=== PATIENT | female | born 1960 | race Caucasian/White ===

== ENCOUNTER 2019-12-14 08:06 | Outpatient (REF) | payer OTHER, SELFPAY ==
--- NOTE | 2019-12-14 08:40 | XR_ITS ---
EXAMINATION: XR BILATERAL HIPS WITH AP PELVIS CLINICAL INFORMATION: Pain in the hips COMPARISON: 11/08/2015 TECHNIQUE: AP and frog-leg lateral views of each hip and an AP view of the pelvis. FINDINGS: No fracture or dislocation. The femoral heads are well-seated within their acetabula. There is moderate joint space narrowing of the left hip with subchondral sclerosis and osteophyte formation. Mild subchondral sclerosis at the right hip. The sacroiliac joints are symmetric. The pubic symphysis is well aligned. Degenerative changes noted at the lower lumbar spine. The bowel gas pattern is unremarkable. IMPRESSION: Moderate degenerative changes of the left hip. This has progressed from prior. Mild degenerative changes of the right hip.
[2019-12-14 11:08] LABS: Alanine Aminotransferase 31 U/L (0-31); Alkaline Phosphatase 56 U/L (39-117); Anion Gap 13 (12-20); Aspartate Amino Transferase 21 U/L (5-31); Bilirubin Total 0.4 mg/dL (0.0-1.0); Blood Urea Nitrogen 17 mg/dL (9-16); Calcium 9.5 mg/dL (8.4-10.2); Carbon Dioxide 31 mmol/L (22-29); Chloride 101 mmol/L (96-108); Cholesterol 201 mg/dL; Estimated Glomerular Filt Rate > 60; Glucose Fasting 118 mg/dL (60-99); HDL Cholesterol 36 mg/dL; LDL Cholesterol Calculated 118 mg/dl; Potassium 4.8 mmol/l (3.3-5.1); Sodium 140 mmol/L (135-145); Triglycerides 239 mg/dL
[2019-12-14 11:31] LABS: Vitamin D 25-OH Total 48.5 ng/mL (>30)
[2019-12-14 11:33] LABS: Creatinine Urine 110.52 mg/dL; Microalbum/Creatinine Ratio Ur 11.7 ug/mg cr
== END 2019-12-14 08:07 | disposition home or self-care (01) ==
LOC: HO.LAB 08:06
PROVIDERS: PCP Internal Medicine; Visit Provider Internal Medicine
DX: Z00.01 Encounter for general adult medical examination with abnormal findings (principal); M25.552 Pain in left hip; M25.551 Pain in right hip; E11.40 Type 2 diabetes mellitus with diabetic neuropathy, unspecified; E78.5 Hyperlipidemia, unspecified; E11.9 Type 2 diabetes mellitus without complications
CPT/HCPCS: 73521; 80053; 80061; 82043; 82306

== ENCOUNTER 2019-12-21 09:39 | Outpatient (REF) | payer OTHER, SELFPAY ==
--- NOTE | 2019-12-21 09:44 | MM_ITS ---
EXAMINATION: MM SCREENING DIGITAL BREAST TOMOSYNTHESIS, BILATERAL CLINICAL INFORMATION: Screening. Asymptomatic. The lifetime risk of breast cancer based on the Tyrer-Cuzick Model is 6.8%. COMPARISON: Mammography: July 28, 2017 and studies dating back to May 22, 2011 TECHNIQUE: Digital breast tomosynthesis is performed in both the craniocaudal and mediolateral oblique views along with computer-aided detection (CAD). Synthesized 2D images are generated from the tomosynthesis. FINDINGS: There are scattered areas of fibroglandular density (ACR BI-RADS breast composition Category b). There are no significant masses, abnormal calcifications, or other abnormalities. Stable intramammary lymph node seen anterior aspect of the right breast. MM/MM tomosynthesis screening BI IMPRESSION: There are no significant changes from prior study. ASSESSMENT: BI-RADS 1: Negative RECOMMENDATION: Routine annual mammography screening. This patient's information was entered into a reminder system with a target due date for their next mammogram.
== END 2019-12-21 09:40 | disposition home or self-care (01) ==
LOC: HO.MAMMO 09:39
PROVIDERS: PCP Internal Medicine; Visit Provider Internal Medicine
DX: Z12.31 Encounter for screening mammogram for malignant neoplasm of breast (principal)
CPT/HCPCS: 77063; 77067

== ENCOUNTER 2020-01-06 10:48 | Outpatient (REF) | payer OTHER, SELFPAY ==
[2020-01-07 11:21] LABS: BV Int Neg Control Negative (Negative); BV Int Pos Control Positive (Positive)
== END 2020-01-06 10:49 | disposition home or self-care (01) ==
LOC: HO.LAB 10:48
PROVIDERS: PCP Internal Medicine; Visit Provider Advanced Practice Midwife
DX: Z01.419 Encounter for gynecological examination (general) (routine) without abnormal findings (principal); R10.9 Unspecified abdominal pain; R30.0 Dysuria; N94.10 Unspecified dyspareunia; N89.8 Other specified noninflammatory disorders of vagina; B37.3 Candidiasis of vulva and vagina; J34.89 Other specified disorders of nose and nasal sinuses; Z78.0 Asymptomatic menopausal state; Z85.828 Personal history of other malignant neoplasm of skin
CPT/HCPCS: 87480; 87510; 87660

== ENCOUNTER → 2020-01-24 09:47 | Outpatient (BNVA) | payer OTHER, SELFPAY | PROVIDERS: Visit Provider Nurse Practitioner | DX: Z76.89 Persons encountering health services in other specified circumstances (principal) ==

== ENCOUNTER 2020-03-22 09:15 | Day surgery (SDC) | payer OTHER, SELFPAY ==
[2020-03-16 11:43] VITALS: BMI 35.5
--- NOTE | 2020-03-21 08:36 | HO.ANESPROP2 ---
Documented by User: Angelica Romo 03/21/20 08:38 HPI - Anesthesia Eval Consult details Narrative: 60yo F for Colonoscopy PMFSH Past Medical History Medical History Acquired deformity of toenail Basal cell carcinoma Diabetes mellitus, without long-term current use of insulin Diabetic neuropathy Hip pain Hyperlipidemia Rosacea Supraventricular tachycardia Tubular adenoma of colon Family History Family History Father Diabetes mellitus HTN (hypertension) CVD (cardiovascular disease) Myocardial infarction Mother Throat cancer Maternal Grandfather No problems noted. Maternal Grandmother No problems noted. Paternal Grandfather No problems noted. Paternal Grandmother No problems noted. Surgical History Surgical History History of basal cell carcinoma excision History of colonoscopy History of excision of lesion Social History Social History Alcohol intake: current Alcohol intake frequency: holidays/special occasions only Smoking Status: Never smoker Use of substances other than those prescribed or required for medical reasons: No Advance Directives: No Advance Directives Information Provided: No Advance Directives on File: No Recently lost weight without trying: No Sexual orientation: Straight/Heterosexual Gender identity: female Meds Allergies Allergy/AdvReac Type Severity Reaction Status Date / Time No Known Allergies Allergy Verified 03/16/20 11:34 Home Medications Medication Instructions Recorded Confirmed Type cholecalciferol (vitamin D3) 50 50 mcg PO DAILY 01/06/20 03/16/20 History mcg (2,000 unit) capsule Exam Exam Date and Time: March 21, 2020 0836 Height,Weight and Vital Signs: Height 5 ft 6 in Weight 99.79 kg Pertinent Lab Results Pertinent Lab Results: Laboratory Tests 12/14/19 08:30 Sodium 140 Potassium 4.8 Chloride 101 Carbon Dioxide 31 H BUN 17 H Creatinine 0.88 Assessment and Plan Assessment Anesthesia Assessment: Chart Reviewed Documented by User: Sandra Mina 03/22/20 10:38 [facility] Past Medical History Medical History Acquired deformity of toenail Basal cell carcinoma Diabetes mellitus, without long-term current use of insulin Diabetic neuropathy Hip pain Hyperlipidemia Rosacea Supraventricular tachycardia Tubular adenoma of colon Family History Family History Father Diabetes mellitus HTN (hypertension) CVD (cardiovascular disease) Myocardial infarction Mother Throat cancer Maternal Grandfather No problems noted. Maternal Grandmother No problems noted. Paternal Grandfather No problems noted. Paternal Grandmother No problems noted. Family history of problems with anesthesia: No Surgical History Surgical History History of basal cell carcinoma excision History of colonoscopy History of excision of lesion History of Problems with Anesthesia: No Social History Social History Alcohol intake: current Alcohol intake frequency: holidays/special occasions only Smoking Status: Never smoker Use of substances other than those prescribed or required for medical reasons: No Advance Directives: No Advance Directives Information Provided: No Advance Directives on File: No Recently lost weight without trying: No Sexual orientation: Straight/Heterosexual Gender identity: female Meds Allergies Allergy/AdvReac Type Severity Reaction Status Date / Time No Known Allergies Allergy Verified 03/16/20 11:34 Home Medications Medication Instructions Recorded Confirmed Type cholecalciferol (vitamin D3) 50 50 mcg PO DAILY 01/06/20 03/16/20 History mcg (2,000 unit) capsule Exam Height,Weight and Vital Signs: Vital Signs Temp Pulse Resp BP Pulse Ox 03/22/20 10:07 97.4 F 70 17 140/79 H 98 Pertinent Lab Results Pertinent Lab Results: Lab Results 03/22/20 Range/Units 10:02 POC Glucose 103 (60-115) mg/dL Airway Mallampati Class: II TM Dist: >3cm Neck ROM: Full Loose/Missing/Broken Teeth: Yes (Loose crown bottom right) Heart: RRR Lungs: CTAB Assessment and Plan Assessment Anesthesia Assessment: Anesthesia Plan Discussed and Chart Reviewed Final Anesthetic Review NPO: Yes ASA Class: II Final Preanesthetic Review: No Changes in Pt Med Stat, Meds/Allgs Chart Reviewed and Consent Obtained/Reviewed Patient Risk: Low Procedure Risk: Low Assessment/Block/Sedation in SS: Assess/Block/Sedation-SS Anesthetic Plan Anesthetic Plan: MAC: Disposition: Standard PACU
[2020-03-22 10:07] VITALS: BP 140/79; PULSE 70; RESP 17; TEMP 36.3; O2SAT 98
[2020-03-22 10:07] LABS: Glucose, Whole Blood 103 mg/dL (60-115)
[2020-03-22] MEDS: Lactated Ringers 1,000 ML 100 ML IVCONT (10:28)
--- NOTE | 2020-03-22 10:35 | MHC.SHP ---
Pre-Procedural Eval Section B Chief Complaint: Screening Details of Present Illness: HX TUBULAR ADENOMAS NO CLINICAL CHANGES SINCE PREPROC EVAL IN JANUARY Relevant Family History (Specify if Yes): No Relevant Social History: None Present Medications: see Short Stay Collaborative assessment Medical History: Significant History (OBESITY, DIABETES,HX SVT) History of Previous Operations: Relevant previous surgery/procedure and date(s) (COLO--2015--REMOVAL 2 TA) Allergies: Allergies Allergy/AdvReac Type Severity Reaction Status Date / Time No Known Allergies Allergy Verified 03/16/20 11:34 Review of Systems Sugical H&P ROS: Negative: Cardiovascular, Respiratory, Neurological and Gastrointestinal and Yes, Specify: Constitution (bmi--35.5) Exam Surgical H&P Exam: Normal: HEENT, Normal: Heart, Normal: Lungs and Normal: Extremities and Significant Findings: Abdomen (CENTRAL OBESITY) Plan Diagnosis/Plan: Unchanged I have reviewed the history and physical and performed a pertinent physical examination on my patient. No changes have occurred unless specified.YES
[2020-03-22 11:33] VITALS: BP 126/77; PULSE 67; RESP 16; TEMP 36.5; O2SAT 100
--- NOTE | 2020-03-22 11:37 | PM.PROC ---
Brief Operative Note Date of procedure: 03/22/20 Pre-op diagnosis: HX TUBULAR ADENOMAS Post-op diagnosis: other (MULTIPLE POLYPS, DIVERTICULOSIS) Procedure: COLONOSCOPY WITH EXCISIONAL POLYPECTOMIES X 5, CSP X1, EPI INJECTION--5 CC; ENDOMARK 7CC, RESOLUTION CLIPPING. Anesthesia: MAC (IVONNE SIDDIQI) Surgeon: Stephanie Green Estimated blood loss (mL): 10 Pathology: other (50CM. 60CM; TRANSVERSE COLON, ASC COLON (2--1 FLAT); 40CM) Condition: stable Disposition: PACU
[2020-03-22 11:48] VITALS: BP 150/82; PULSE 61; RESP 18; O2SAT 96
[2020-03-22 12:03] VITALS: BP 156/82; PULSE 59; RESP 18; O2SAT 98
--- NOTE | 2020-03-22 12:58 | OP_ITS ---
SURGEON: Stephanie Green MD PREOPERATIVE DIAGNOSIS: History of tubular adenomas removed in 2015. PROCEDURE PERFORMED: Colonoscopy with excisional polypectomy x5 using the cold biopsy forceps, cold snare polypectomy x1, complex removal of flat polyp, ascending colon; epinephrine 5 mL lift with excisional polypectomy of flat polyp, endo marking of region with 6 to 7 mL of endo chloe above and below the polypectomy site, resolution clip re-apposition of base of polyp. ESTIMATED BLOOD LOSS: Less than 20 mL. COMPLICATIONS: No complications. ANESTHESIA: Monitored. ANESTHESIOLOGIST: Issac Cardona CRNA.Issac Cardona CRNA. ASSISTANTS: No unit assistant. SPECIMENS: Specimens removed; 50 cm, 60 cm, transverse colon, ascending colon x2 (this includes flat polyp removed excisionally in segmental pieces) and polypectomy between 40 and 45 cm on withdrawing the scope. POSTOPERATIVE DIAGNOSES: Multiple polyps (6), diverticulosis. ALUMINUM BOAT INSPECTOR: Dr. Green. CONDITION: Postprocedure, stable. FINDINGS: Digital rectal exam revealed sphincter tone to be decreased. Video colonoscope was introduced without difficulty. It was navigated into the rectosigmoid and sigmoid. There were scattered diverticula present. Prep was good. Areas were flushed and suctioned. Scope advanced slowly through this area at approximately 50 cm. A polyp was identified, this was removed excisionally. Other polyps are as listed under specimen removed. The scope ultimately with extrinsic abdominal pressure with assist of 2, we were able to drop into the cecal cap. Appendiceal orifice was seen. Ileocecal valve was well seen and this maneuver allowed me to reposition for removal of 2 polyps in the ascending colon, one was 2 mm, but slightly sessile. The other was a more complex flat lesion, which was lifted with submucosal epinephrine. This had resulted in 2 hemorrhagic blebs. There was adequate blanching, so polyp, however, was appeared flattened with this maneuver and was removed excisionally as opposed with a snare. Edges appeared clean, both on regular and NBI imaging. Area was endo marked and resolution clip was placed to re-oppose the base of this polyp. A diminutive polyp was removed between 40 and [address] out. Anorectal verge was clear. PLAN: With this many polyps in a 5-year interval, this patient will need a repeat exam in 3 years. If there are any unusual characteristics to the polyps, histologically this may be moved up to 12 to 18 months. GRAFT OR IMPLANTS: No grafts or implants. Resolution clipping was done at polypectomy site in the ascending colon. MD OMER Crawford/MODL / [id number] MTDD
--- NOTE | 2020-03-22 13:10 | HO.POSTANES ---
Post Anesthesia Evaluation Post Anesthesia Evaluation Vital Signs: Vital Signs Temp Pulse Resp BP Pulse Ox 03/22/20 12:03 97.7 F 59 18 156/82 H 98 03/22/20 11:48 61 18 150/82 H 96 03/22/20 11:33 97.7 F 67 16 126/77 100 03/22/20 10:07 97.4 F 70 17 140/79 H 98 Anesthesia: TIVA Mental Status: Awake Pain Control: Satisfactory Nausea/Vomiting: None Hydration: Adequate Anesthesia-Related Issues: No Anes. Related Issues
== END 2020-03-22 13:10 | disposition home or self-care (01) ==
PROVIDERS: PCP Internal Medicine; Visit Provider Internal Medicine Gastroenterology
PROC: 0DJD8ZZ Inspection of Lower Intestinal Tract, Via Natural or Artificial Opening Endoscopic (ICD-10-PCS; CPT 45378; principal; 2020-03-22 10:30)
DX: Z12.11 Encounter for screening for malignant neoplasm of colon (principal); Z86.010 Personal history of colon polyps; D12.2 Benign neoplasm of ascending colon; D12.3 Benign neoplasm of transverse colon; K63.5 Polyp of colon; K57.30 Diverticulosis of large intestine without perforation or abscess without bleeding; E11.40 Type 2 diabetes mellitus with diabetic neuropathy, unspecified; G47.33 Obstructive sleep apnea (adult) (pediatric); Z85.828 Personal history of other malignant neoplasm of skin; Z79.84 Long term (current) use of oral hypoglycemic drugs; Z79.899 Other long term (current) drug therapy
CPT/HCPCS: 45385; 45380; 45381; 82947; 88305; J0171

== ENCOUNTER → 2020-05-14 15:54 | Outpatient (BNVA) | payer OTHER, SELFPAY | PROVIDERS: PCP Internal Medicine; Visit Provider Nurse Practitioner ==

== ENCOUNTER 2020-07-17 07:13 | Outpatient (REF) | payer OTHER, SELFPAY ==
[2020-07-17 08:46] LABS: Creatinine Urine 145.24 mg/dL
[2020-07-17 08:48] LABS: Alanine Aminotransferase 28 U/L (0-31); Anion Gap 15 (12-20); Aspartate Amino Transferase 22 U/L (5-31); Blood Urea Nitrogen 16 mg/dL (9-16); Carbon Dioxide 29 mmol/L (22-29); Chloride 103 mmol/L (96-108); Cholesterol 163 mg/dL; Estimated Glomerular Filt Rate > 60; Glucose Fasting 116 mg/dL (60-99); HDL Cholesterol 40 mg/dL; LDL Cholesterol Calculated 77 mg/dl; Potassium 4.7 mmol/L (3.3-5.1); Sodium 142 mmol/L (135-145); Triglycerides 234 mg/dL
[2020-07-17 09:14] LABS: Vitamin D 25-OH Total 67.4 ng/mL (>30)
== END 2020-07-17 07:14 | disposition home or self-care (01) ==
LOC: HO.LAB 07:13
PROVIDERS: PCP Internal Medicine; Visit Provider Internal Medicine
DX: E11.9 Type 2 diabetes mellitus without complications (principal); E78.5 Hyperlipidemia, unspecified; Z78.0 Asymptomatic menopausal state; I10 Essential (primary) hypertension
CPT/HCPCS: 36415; 80048; 80061; 82043; 82306; 84450; 84460

== ENCOUNTER 2020-09-25 09:00 | Outpatient (RCR) | payer OTHER, SELFPAY ==
--- NOTE | 2020-08-28 14:50 | MHC.PT.EP ---
[facility] [place] Office [place] Office [place] Office [address] Sada Cornell [address] [phone] F: [phone] F: [phone] F: [phone] F: [phone] Physical Therapy Plan of Care Date of Evaluation: Date of Surgery: Diagnosis: DEGENERATIVE JOINT DISEASE OF BOTH HIPS Assessment: Pt IS 60 YO F REFERRED TO PT FROM DR MCNEILL WITH DEGENERATIVE JOINT DISEASE IN BOTH HIPS. Pt REPORTS MOST PAIN IN L HIP AND GROIN. PRESENTS WITH DECREASED L HIP ROM AND DECREASED L HIP STRENGTH WITH TTP L GREATER TROCH AREA. Pt WITH TRANDELENBERG-TYPE GT WITH SIGNIF LIMP WHEN FIRST STANDS UP BECAUSE OF DECREASED STANCE TIME ON L. LIMP DECREASES SOMEWHAT GT CONTINUES. Pt WORKS [employer] SO IS OFF FOR THE SUMMER. Pt HAS 30$ CO-PAY AND VARIOUS TRAVEL PLANS FOR THE SUMMER, SO WILL SCHEDULE HER 1X/WK X 3-4 WKS WITH EMPHASIS ON HOME PROGRAM Frequency and Duration: The patient will be seen 1X/WK X 4 WKS Short Term Goals: 1. I HEP WITH DC EX PLAN 2. INCREASED AWARENESS POSTURE AND BACK/HIP CARE 3. Pt ABLE TO PERF SLR X 10 R ON L Resistance Brazer Goals: 1. I HEP WITH DC EX PLAN 2. DECREASED L HIP/GROIN PAIN AT LEAST 50% WITH ADLS 3. IMPROVED LEFI Treatment Plan: Modalities to reduce pain, spasms and effusion. Manual therapy to restore motion and function. Therapeutic exercise to improve strength and flexibility. Neuromuscular re-education for posture and balance. Therapeutic activities to return to functional activities of daily living. Electronically signed by: KELTON FIGUEROA PT Please sign and return to therapist. Thank you for your referral.
--- NOTE | 2020-10-31 07:49 | MHC.PT.DC ---
[facility] [place] Office [place] Office [place] Office [address] Sada Cornell [address] [phone] F: [phone] F: [phone] F: [phone] F: [phone] Physical Therapy Discharge Report Diagnosis: DEGENERATIVE JOINT DISEASE OF BOTH HIPS Date of Surgery: NA Date of Evaluation: 08/28/20 Date of Discharge: 10/31/20 Treatments to Date: 4 Cancellations to Date: No Shows to Date: Discharge Status: Patient Elected to Stop Discharge Summary: Pt SEEN FOR INIT EVAL AND 3 FU VISITS. PER LAST NOTE ASSESSMENT (BY CODIE MARTINEZ DPT):'Antalgic gait pattern noted, reports her wrist/cts have been bothersome recently Pt not using AD. Poor carryover of previous education instruction, was last seen 13 days ago due to vacation. Pt will be away again for second trip... Pt required previous review of all activities, greatest challenge with L hip abd clamshell. Therapist attempted to educated patient in benefit of continued therapy, however pt appears to lack drive/commitmento to scheduling further sessions at this time. Pt issued educational handout orthoinfo re: hip bursitis in effort to increase patient education. Pt shown anatomical mm structures/visual models in effort to increased understanding of condition.' WITH PLAN OF 'Pt reports will be going away again, has reported poor compliance, poor carryover of previously issued HEP/activities. Reviewed same tasks as previous due to this. Encouraged use of cane to reduce gait deviations. Patient may call to schedule; was uncertain to patient plan as she states has a lot of things going on right now.' [ End ] Electronically signed by: KELTON FIGUEROA PT Please sign and return to therapist. Thank you for your referral.
== END 2020-10-31 07:51 | disposition home or self-care (01) ==
LOC: HO.PTWFD 09:00
PROVIDERS: PCP Internal Medicine; Visit Provider Internal Medicine
DX: M16.0 Bilateral primary osteoarthritis of hip (principal)
CPT/HCPCS: 97110; 97116; 97140; 97161; 97530

== ENCOUNTER 2020-09-27 10:21 | Outpatient (REF) | payer OTHER, SELFPAY ==
[2020-09-27 11:49] LABS: Alanine Aminotransferase 23 U/L (0-31); Albumin Level 3.8 g/dL (3.5-5.0); Alkaline Phosphatase 63 U/L (39-117); Aspartate Amino Transferase 16 U/L (5-31); Bilirubin Direct 0.2 mg/dL (0.0-0.5); Bilirubin Total 0.4 mg/dL (0.0-1.0); Total Protein 6.9 g/dL (6.5-8.0)
== END 2020-09-27 10:22 | disposition home or self-care (01) ==
LOC: HO.HMGCLDS 10:21
PROVIDERS: PCP Internal Medicine; Visit Provider Podiatrist
DX: B35.1 Tinea unguium (principal)
CPT/HCPCS: 36415; 80076

== ENCOUNTER 2021-01-10 09:38 | Outpatient (REF) | payer OTHER, SELFPAY ==
[2021-01-10 13:00] LABS: Alanine Aminotransferase 20 U/L (0-31); Anion Gap 13 (12-20); Aspartate Amino Transferase 18 U/L (5-31); Blood Urea Nitrogen 18 mg/dL (9-16); Calcium 10.1 mg/dL (8.4-10.2); Carbon Dioxide 31 mmol/L (22-29); Chloride 102 mmol/L (96-108); Cholesterol 173 mg/dL; Estimated Glomerular Filt Rate > 60; Glucose Fasting 93 mg/dL (60-99); HDL Cholesterol 37 mg/dL; LDL Cholesterol Calculated 94 mg/dl; Potassium 4.6 mmol/L (3.3-5.1); Sodium 141 mmol/L (135-145); Triglycerides 210 mg/dL
[2021-01-10 13:22] LABS: Vitamin D 25-OH Total 77.7 ng/mL (>30)
[2021-01-10 13:41] LABS: Folate 12.2 ng/mL (> or = 4.0); Vitamin B12 889 pg/mL (200-900)
[2021-01-15 21:50] LABS: HPV mRNA E6/E7 rflx Not Detected (Not Detected)
== END 2021-01-10 09:39 | disposition home or self-care (01) ==
LOC: HO.LAB 09:38
PROVIDERS: Absent Provider Internal Medicine; PCP Internal Medicine; Visit Provider Advanced Practice Midwife
DX: Z01.419 Encounter for gynecological examination (general) (routine) without abnormal findings (principal); Z11.51 Encounter for screening for human papillomavirus (HPV); E11.9 Type 2 diabetes mellitus without complications; E78.5 Hyperlipidemia, unspecified; I10 Essential (primary) hypertension; Z78.0 Asymptomatic menopausal state
CPT/HCPCS: 36415; 80048; 80061; 82306; 82607; 82746; 84450; 84460; 87624; 88142

== ENCOUNTER 2021-02-08 14:24 | Outpatient (REF) | payer OTHER, SELFPAY ==
--- NOTE | ~2021-02-08 | MM_ITS ---
EXAMINATION: MM SCREENING DIGITAL BREAST TOMOSYNTHESIS, BILATERAL CLINICAL INFORMATION: Screening. Asymptomatic. The lifetime risk of breast cancer based on the Tyrer-Cuzick Model is 7%. COMPARISON: Mammography: 12/21/2019, 07/28/2017, 02/04/2016 TECHNIQUE: Digital breast tomosynthesis is performed in both the craniocaudal and mediolateral oblique views along with computer-aided detection (CAD). Synthesized 2D images are generated from the tomosynthesis. FINDINGS: There are scattered areas of fibroglandular density (ACR BI-RADS breast composition Category b). There are no significant masses, abnormal calcifications, or other abnormalities. Parenchymal pattern is similar to prior studies. No developing density. No architectural abnormality. There are scattered benign vascular and punctate and some coarse calcifications. The axilla and skin contours are unremarkable. MM/MM tomosynthesis screening BI IMPRESSION: No mammographic evidence of malignancy. ASSESSMENT: BI-RADS 2: Benign RECOMMENDATION: Routine annual mammography screening. This patient's information was entered into a reminder system with a target due date for their next mammogram.
== END 2021-02-08 14:25 | disposition home or self-care (01) ==
LOC: HO.MAMMO 14:24
PROVIDERS: PCP Internal Medicine; Visit Provider Advanced Practice Midwife
DX: Z12.31 Encounter for screening mammogram for malignant neoplasm of breast (principal)
CPT/HCPCS: 77063; 77067

== ENCOUNTER 2021-12-19 09:50 | Outpatient (REF) | payer OTHER, SELFPAY ==
[2021-12-19 11:12] LABS: MANUAL DIFF FLAG NO
[2021-12-19 11:17] LABS: Basophils Percent Auto 0.4 % (0-2); Eosinophils Absolute Auto 0.1 X10*3/uL (0.0-0.4); Eosinophils Percent Auto 2.3 % (0-4); Hematocrit 41.6 % (37.0-47.0); Hemoglobin 13.8 g/dl (12.0-16.0); Imm Gran Abs Auto 0.02 X10*3/uL (0.00-0.03); Imm Gran Pct Auto 0.4 % (0.0-0.4); Lymphocytes Absolute Auto 1.5 X10*3/uL (1.2-4.9); Lymphocytes Percent Auto 28.6 % (20-40); Mean Corpuscular HGB Conc 33.2 g/dl (31.0-35.0); Mean Corpuscular Hemoglobin 31.7 pg (27.0-33.0); Mean Corpuscular Volume 95.4 fL (80.0-98.0); Mean Platelet Volume 10.1 fL (9.4-12.3); Monocytes Absolute Auto 0.5 X10*3/uL (0.1-1.2); Monocytes Percent Auto 10.6 % (2-11); Neutrophils Percent Auto 57.7 % (45-73); Platelet Count 265 X10*3/uL (160-400); Red Blood Count 4.36 X10*6/uL (4.20-5.50); Red Cell Distribution Width 13.1 % (11.0-16.0); White Blood Count 5.1 X10*3/uL (4.8-10.8)
[2021-12-19 11:33] LABS: Alanine Aminotransferase 18 U/L (0-31); Albumin Level 4.2 g/dL (3.5-5.0); Alkaline Phosphatase 57 U/L (39-117); Anion Gap 15 (12-20); Aspartate Amino Transferase 18 U/L (5-31); Bilirubin Total 0.3 mg/dL (0.0-1.0); Blood Urea Nitrogen 22 mg/dL (9-16); Carbon Dioxide 28 mmol/L (22-29); Chloride 102 mmol/L (96-108); Cholesterol 185 mg/dL; Estimated Average Glucose 123 mg/dL; Estimated Glomerular Filt Rate 60; Glucose Fasting 110 mg/dL (60-99); HDL Cholesterol 38 mg/dL; Hemoglobin A1c % 5.9 %; LDL Cholesterol Calculated 114 mg/dl; Potassium 4.4 mmol/L (3.3-5.1); Sodium 141 mmol/L (135-145); Total Protein 7.5 g/dL (6.5-8.0); Triglycerides 165 mg/dL
[2021-12-19 11:49] LABS: Creatinine Urine 90.26 mg/dL; Microalbum/Creatinine Ratio Ur 9.9 ug/mg cr
[2021-12-19 11:54] LABS: Vitamin D 25-OH Total 80.2 ng/mL (>30)
== END 2021-12-19 09:51 | disposition home or self-care (01) ==
LOC: HO.HMGCLDS 09:50
PROVIDERS: PCP Internal Medicine; Visit Provider Internal Medicine
DX: E11.40 Type 2 diabetes mellitus with diabetic neuropathy, unspecified (principal); E78.2 Mixed hyperlipidemia; N95.9 Unspecified menopausal and perimenopausal disorder
CPT/HCPCS: 36415; 80053; 80061; 82043; 82306; 83036; 85025

== ENCOUNTER → 2021-12-23 14:45 | Outpatient (BNVA) | payer OTHER, SELFPAY | PROVIDERS: PCP Internal Medicine; Referring Provider Internal Medicine; Visit Provider Surgery | DX: C44.91 Basal cell carcinoma of skin, unspecified (principal); I47.1 Supraventricular tachycardia; E11.40 Type 2 diabetes mellitus with diabetic neuropathy, unspecified; G47.33 Obstructive sleep apnea (adult) (pediatric) | CPT/HCPCS: 99202 ==

== ENCOUNTER 2022-02-11 14:40 | Outpatient (REF) | payer OTHER, SELFPAY ==
--- NOTE | ~2022-02-11 | MM_ITS ---
EXAMINATION: BONE DENSITOMETRY CLINICAL INDICATION: Menopause. COMPARISON: This is the patient's baseline examination. TECHNIQUE: Using a GI Track DXA System (software version: 13.1) manufactured by [employer], dual-energy x-ray absorptiometry was performed of the lumbar spine and left hip. The images are of good technical quality. Summary results are attached. FINDINGS: AP SPINE L1-L4: BMD 1.318 g/cm2, Z-score 1.6, T-score 1.1, normal. LEFT FEMUR, NECK: BMD 0.711 g/cm2, Z-score -1.6, T-score -2.4, osteopenia. LEFT FEMUR, TOTAL: BMD 0.761 g/cm2, Z-score -1.6, T-score -2.0, osteopenia. IDENTIFIED RISK FACTORS: Menopause, height loss, family history (parent hip fracture). HISTORY OF FRACTURE: None listed. MEDICATIONS: Calcium, vitamin D. MM/XR DEXA axial skeleton IMPRESSION: 1. DIAGNOSIS: Osteopenia based on the lowest T-score value of -2.4 in the femoral neck applying World Health Organization criteria. 2. 10-YEAR FRACTURE RISK PREDICTION, FRAX: Major osteoporotic fracture (clinical spine, forearm, hip or shoulder) 20.4%. Hip fracture 2.0%. 3. Treatment Recommendations: NOF guidelines recommend consideration for treatment in postmenopausal women and men age 50 and older presenting with the following: -A hip or vertebral (clinical or morphometric) fracture. -T-score less than or equal to -2.5 at the femoral neck or spine after appropriate evaluation to exclude secondary causes. -Low bone mass at the hip or spine and a 10-year fracture probability by FRAX of greater than or equal to 3% for hip fracture or greater than or equal to 20% for major osteoporotic fracture based on the [place] adapted WHO algorithm. 4. Other Recommendations: All treatment decisions require clinical judgment and consideration of individual patient factors, including patient preferences, comorbidities, previous drug use, risk factors not captured in the FRAX model (e.g. frailty, falls, vitamin D deficiency, increased bone turnover, interval significant decline in bone density) and possible under or overestimation of fracture risk by FRAX. Additional medical evaluation for secondary cause of low bone mineral density may be appropriate. FUTURE SCAN RECOMMENDATION: People with diagnosed cases of osteoporosis or at high risk for fracture should have regular bone mineral density tests. For patients eligible for Medicare, routine testing is allowed once every 2 years. The testing frequency can be increased to one year for patients who have rapidly progressing disease, those who are receiving or discontinuing medical therapy to restore bone mass, or have additional risk factors.
--- NOTE | ~2022-02-11 | MM_ITS ---
EXAMINATION: MM SCREENING DIGITAL BREAST TOMOSYNTHESIS, BILATERAL CLINICAL INFORMATION: Screening. Asymptomatic. The lifetime risk of breast cancer based on the Tyrer-Cuzick Model is 7.8%. COMPARISON: Mammography: February 08, 2021 and studies dating back to February 04, 2016 TECHNIQUE: Digital breast tomosynthesis is performed in both the craniocaudal and mediolateral oblique views along with computer-aided detection (CAD). Synthesized 2D images are generated from the tomosynthesis. FINDINGS: The breasts are heterogeneously dense, which may obscure small masses (ACR BI-RADS breast composition Category c). There are no significant masses, abnormal calcifications, or other abnormalities. MM/MM tomosynthesis screening BI IMPRESSION: No significant changes from prior exam. ASSESSMENT: BI-RADS 1: Negative RECOMMENDATION: Routine annual mammography screening. This patient's information was entered into a reminder system with a target due date for their next mammogram.
== END 2022-02-11 14:41 | disposition home or self-care (01) ==
LOC: HO.MAMMO 14:40
PROVIDERS: PCP Internal Medicine; Visit Provider Internal Medicine
DX: Z12.31 Encounter for screening mammogram for malignant neoplasm of breast (principal); Z13.820 Encounter for screening for osteoporosis; N95.9 Unspecified menopausal and perimenopausal disorder
CPT/HCPCS: 77063; 77067; 77080

== ENCOUNTER 2022-03-21 11:01 | Outpatient (REF) | payer OTHER, SELFPAY ==
[2022-03-21 14:47] LABS: Estimated Average Glucose 128 mg/dL; Hemoglobin A1C 159.9726 umol/L; Hemoglobin A1c % 6.1 %
[2022-03-21 14:48] LABS: Alanine Aminotransferase 19 U/L (0-31); Aspartate Amino Transferase 18 U/L (5-31); Cholesterol 181 mg/dL; HDL Cholesterol 42 mg/dL; LDL Cholesterol Calculated 108 mg/dl; Triglycerides 157 mg/dL
== END 2022-03-21 11:02 | disposition home or self-care (01) ==
LOC: HO.HMGCLDS 11:01
PROVIDERS: Visit Provider Internal Medicine
DX: E11.9 Type 2 diabetes mellitus without complications (principal); E78.2 Mixed hyperlipidemia
CPT/HCPCS: 36415; 80061; 83036; 84450; 84460

== ENCOUNTER 2022-04-17 13:45 | Outpatient (REF) | payer OTHER, SELFPAY ==
--- NOTE | 2022-04-17 09:15 | EMG_ITS ---
Bilateral median and ulnar motor and sensory studies were performed. Bilateral radial sensory studies were performed and paraspinal muscles were tested with a needle. IMPRESSION: 1. Mild to moderate left and mild right median neuropathy across carpal tunnel. 2. Mild bilateral ulnar neuropathy across cubital tunnel. MD LAURA Card/RENOL / [id number]
== END 2022-04-17 13:46 | disposition home or self-care (01) ==
LOC: HO.NEURO 13:45
PROVIDERS: PCP Internal Medicine; Visit Provider Internal Medicine
DX: R20.0 Anesthesia of skin (principal)
CPT/HCPCS: 95886; 95911

== ENCOUNTER 2022-07-23 08:18 | Outpatient (REF) | payer OTHER, SELFPAY ==
[2022-07-23 11:45] LABS: Alanine Aminotransferase 20 U/L (0-31); Anion Gap 16 (12-20); Aspartate Amino Transferase 15 U/L (5-31); Blood Urea Nitrogen 22 mg/dL (9-16); Calcium 9.7 mg/dL (8.4-10.2); Carbon Dioxide 25 mmol/L (22-29); Chloride 107 mmol/L (96-108); Cholesterol 236 mg/dL; Estimated Glomerular Filt Rate > 60; Glucose Fasting 116 mg/dL (60-99); HDL Cholesterol 37 mg/dL; LDL Cholesterol Calculated 151 mg/dl; Potassium 4.5 mmol/L (3.3-5.1); Sodium 143 mmol/L (135-145); Triglycerides 242 mg/dL
[2022-07-23 12:07] LABS: Creatinine Urine 89.07 mg/dL; Microalbum/Creatinine Ratio Ur 10.1 ug/mg cr
[2022-07-23 12:19] LABS: Folate 8.5 ng/mL (> or = 4.0); Vitamin B12 > 2000 pg/mL (200-900); Vitamin D 25-OH Total 73.7 ng/mL (>30)
== END 2022-07-23 08:19 | disposition home or self-care (01) ==
LOC: HO.HMGCLDS 08:18
PROVIDERS: PCP Internal Medicine; Visit Provider Internal Medicine
DX: M85.89 Other specified disorders of bone density and structure, multiple sites (principal); E11.40 Type 2 diabetes mellitus with diabetic neuropathy, unspecified; E78.2 Mixed hyperlipidemia
CPT/HCPCS: 36415; 80048; 80061; 82043; 82306; 82607; 82746; 84450; 84460

== ENCOUNTER 2022-10-01 07:47 | Outpatient (AMB) | payer OTHER, SELFPAY ==
--- NOTE | 2022-10-01 07:58 | MHC.OFFVIS ---
Intake Vital Signs 10/01/22 08:06 Height 5 ft 4 in Weight 211 lb BMI 36.2 BP 120/82 Blood Pressure Location Lt brachial Position Sitting Pulse 71 Pulse Source Pulse Oximeter Pulse Oximetry (%) 96 Oxygen Delivery Method Room Air Intake Visit Reasons: I-HEAD OF SALES: Hypersomnia/ Apnea - Confirmed Intake Note: NPV for Hypersomnia/Apnea Delivery And Mail Sorter Required: No Allergies No Known Allergies Allergy (Verified 10/01/22 08:02) HPI HPI Comments History of Present Illness Details 62 y/o female patient presents for new in-person visit for sleep consultation. Pt reports snoring, tosses and turns a lot, frequent urination at night. She has non refreshing sleep with daytime sleepiness. She had a colonoscopy and was witnessed apnea spells and recommended to have sleep study. Pt reports wt gain, not sure how much, but significant wt gain due to physical inactivity. She had pain on her back and leg, uses cane. Sleep questionnaire: Have you ever been diagnosed with a sleep disorder? No. Have you ever had a sleep study in the past? No. Have you ever been treated for a sleep disorder? No. Do you take medications for a sleep disorder? No. Do you snore? Yes. Do you wake up gasping at night? No. Do you have episodes of apneas? Yes. If yes, are they witnessed? Yes. Do you have episodes of nocturnal chest pain or dyspnea? No. Do you have difficulty initiating sleep? No. Do you have difficulty maintaining sleep? Yes. Do you wake up tired? Yes. Do you have headaches upon awakening? No. Do you wake up with dry mouth or throat? Not really. Do you have GERD? No. Do you have nocturia? Yes. Do you have nocturnal leg cramps? Yes. Do you have symptoms of restless legs? Yes. Do you act out your dreams? No. Sleep hygiene questionnaire: What is your usual sleep routine? Usual bedtime is at 9-11 pm; Usual wake up time is at 8 am. Do you take naps? Yes. Is your sleep environment cool, dark, and quiet? Yes. Do you exercise? Can't walk. Do you take caffeine or other stimulants? Yes, soda. Do you use electronics in bed? Yes. What is your work schedule? 10 am-2 pm. Hypersomnolence questionnaire: Do you have daytime tiredness or fatigue? Yes. Do you easily fall asleep when inactive? Yes, sometimes. Have you ever had episodes of sudden weakness? No. Have you ever had episodes of sudden weakness associated with strong emotions? No. [facility] Medical History (Updated 10/01/22 @ 14:20 by Chandana Bustos CNP) Acquired deformity of toenail Basal cell carcinoma Bilateral carpal tunnel syndrome Degenerative joint disease of both hips Diabetes mellitus, without long-term current use of insulin Diabetic neuropathy Excessive daytime sleepiness Hammertoes of both feet Hip pain Hyperlipidemia Lesion of skin of nose Numbness and tingling in both hands Numbness of fingers of both hands Osteopenia of multiple sites Paresthesia of both feet Rosacea Supraventricular tachycardia Tinea unguium Tubular adenoma of colon Witnessed apneic spells Surgical History History of basal cell carcinoma excision History of colonoscopy History of excision of lesion Family History (Updated 10/01/22 @ 08:05 by Abigail Salgado [facility]) Father Diabetes mellitus HTN (hypertension) CVD (cardiovascular disease) Myocardial infarction Mother Throat cancer Cancer Maternal Grandfather No problems noted. Maternal Grandmother No problems noted. Paternal Grandfather No problems noted. Paternal Grandmother No problems noted. 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 Sexual orientation: Straight/Heterosexual Gender identity: Female Cognitive needs: No Hearing needs: No Vision needs: Yes Female Reproductive History Menstrual Age of Menarche: 12 Review of Systems Const All systems reviewed & are unremarkable except as noted in HPI and below ENT Reports Normal hearing present Neuro Reports Normal hearing present Physical Exam Vital Signs: Last Vital Signs Pulse 71 10/01/22 08:06 BP 120/82 10/01/22 08:06 Pulse Ox 96 10/01/22 08:06 Oxygen Delivery Method Room Air 10/01/22 08:06 Const General: cooperative Nutritional Appearance: obese Orientation/consciousness: patient oriented x3 Neck Neck: Yes full ROM and Yes supple Resp Effort & Inspection: normal respiratory effort and able to speak in complete sentences Neuro General: patient oriented x3, gait normal and moves all extremities Cranial nerves: Yes Bilaterally intact EOM present, Yes Normal facial strength present, Yes Midline tongue present, Yes Symmetric palate elevation present, Yes Normal hearing present, Yes Ability to bilaterally rotate head present and Yes Ability to bilaterally elevate shoulders present Cognition (Neuro): normal cognition Gait exam (Neuro): Assisted gait required (cane) Motor exam (neuro): 5/5 motor strength present throughout, Pronator motor function not present and no tremor noted Psych Appearance: grossly normal Mental Status: mental status grossly normal Speech and movement: Normal speech and movement present Affect: normal affect Attitude: cooperative Assessment & Plan Assessment & Plan (1) Witnessed apneic spells: Code(s): R06.81 - Apnea, not elsewhere classified (2) Excessive daytime sleepiness: Code(s): G47.19 - Other hypersomnia (3) Snoring: Code(s): R06.83 - Snoring (4) Restless legs: Code(s): G25.81 - Restless legs syndrome Plan Pt is advised to undergo in lab sleep study to assess for sleep apnea. Will f/u with pt after study to discuss results and appropriate treatment options. Sleep hygiene education provided. Limit soda intake in the afternoon, and electronic use before bedtime. Pt may try gabapentin 100 mg ,1tab to 3 tabs for sleep and restless legs. Pt to call with any worsening concerns or questions. Orders: Orders RT PSG in-lab sleep study Today E11.9 - Type 2 diabetes mellitus without complications, E66.9 - Obesity, unspecified, G47.19 - Other hypersomnia, G47.33 - Obstructive sleep apnea (adult) (pediatric), I10 - Essential (primary) hypertension, I47.1 - Supraventricular tachycardia, R06.81 - Apnea, not elsewhere classified Coding Level of Care Code New Pt Level 4 (13019) Diagnoses Witnessed apneic spells R06.81 Excessive daytime sleepiness G47.19 Snoring R06.83 Restless legs G25.81
[2022-10-01 08:06] VITALS: BP 120/82; PULSE 71; O2SAT 96; BMI 36.2
== END 2022-10-01 08:49 | disposition home or self-care (01) ==
PROVIDERS: PCP Internal Medicine; Visit Provider Nurse Practitioner Family
DX: R06.81 Apnea, not elsewhere classified (principal); G47.19 Other hypersomnia; R06.83 Snoring; G25.81 Restless legs syndrome
CPT/HCPCS: 99204

== ENCOUNTER → 2022-10-01 07:47 | Outpatient (BNVA) | payer OTHER, SELFPAY | PROVIDERS: PCP Internal Medicine; Visit Provider Nurse Practitioner Family ==

== ENCOUNTER 2022-10-29 14:11 | Outpatient (AMB) | payer OTHER, SELFPAY ==
[2022-10-29 14:27] VITALS: BMI 36.2
--- NOTE | 2022-10-29 14:27 | MHC.OFFVIS ---
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 Reports she is having constant numbness and tingling throughout the day. States she is a heavy sleeper and doesn't affect her sleep but wakes up with mild numbness in hands. Reports her right hand is currently worse. Denies any prior treatment. Denies hand weakness or injury. A1C is 5.9. 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 She feels this is constant now. She says her numbness has been worsening over the last ~5 years. She has difficulty walking and usually carries her cane in her right hand, she is concerned how surgery may affect this but she is unable to walk comfortably without it due to feeling unstable. She is a Diabetic which she says is well controlled. 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 [facility] Medical History (Updated 10/29/22 @ 14:47 by Tyrone Erazo) Acquired deformity of toenail Basal cell carcinoma Bilateral carpal tunnel syndrome Degenerative joint disease of both hips Diabetes mellitus, without long-term current use of insulin Diabetic neuropathy Excessive daytime sleepiness Hammertoes of both feet Hip pain Hyperlipidemia Lesion of skin of nose Numbness and tingling in both hands Numbness of fingers of both hands Osteopenia of multiple sites Paresthesia of both feet Rosacea Supraventricular tachycardia Tinea unguium Tubular adenoma of colon Witnessed apneic spells Surgical History History of basal cell carcinoma excision History of colonoscopy History of excision of lesion Family History (Updated 10/01/22 @ 08:05 by Abigail Salgado [facility]) Father Diabetes mellitus HTN (hypertension) CVD (cardiovascular disease) Myocardial infarction Mother Throat cancer Cancer Maternal Grandfather No problems noted. Maternal Grandmother No problems noted. Paternal Grandfather No problems noted. Paternal Grandmother No problems noted. 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 Sexual orientation: Straight/Heterosexual Gender identity: Female Cognitive needs: No Hearing needs: No Vision needs: Yes Female Reproductive History Menstrual Age of Menarche: 12 Review of Systems Const All systems reviewed & are unremarkable except as noted in HPI and below Physical Exam Vital Signs: BMI result Body Mass Index 36.2 Const General: cooperative, healthy appearing and no acute distress Orientation/consciousness: patient oriented x3 HEENT Head: Yes normocephalic and Yes atraumatic Eyes EOM: EOMs intact bilaterally Resp Effort & Inspection: normal respiratory effort and able to speak in complete sentences Cardio Jugular venous distension: no JVD Skin General skin exam: turgor normal Rashes: no rashes Neuro General: patient oriented x3 Extrem Other: Evaluation of right Upper Extremity: The patient is alert, oriented, and in no acute distress Neuro: Dense numbness to the tips of all digits , except for normal sensation to the tip of the right thumb. No thenar or intrinsic wasting Good APB muscle belly firing and good finger cross Vascular: Cap refill brisk ROM: She can make a fist and extend all her digits No locking or catching Skin: No lacerations or abrasions. General: No Ecchymosis. No Erythema or evidence of infection. Nerve Conduction Study: IMPRESSION:? 1. Mild to moderate left and mild right median neuropathy across carpal tunnel. 2. Mild bilateral ulnar neuropathy across cubital tunnel. Ofelia Brower MD 04/17/2022 Psych Appearance: grossly normal Affect: normal affect Attitude: cooperative Assessment & Plan Assessment & Plan (1) Bilateral carpal tunnel syndrome: Code(s): G56.03 - Carpal tunnel syndrome, bilateral upper limbs (2) Cubital tunnel syndrome, bilateral: Code(s): G56.23 - Lesion of ulnar nerve, bilateral upper limbs (3) Diabetes mellitus, without long-term current use of insulin: Comment: NIDDM Code(s): E11.9 - Type 2 diabetes mellitus without complications Qualifiers: Diabetes mellitus complication status: without complication Diabetes mellitus type: type 2 Qualified Code(s): E11.9 - Type 2 diabetes mellitus without complications Plan Assessment & Plan: 1. Right Carpal tunnel syndrome, mild With dense numbness to the index and middle finger 2. Right Cubital tunnel, mild With dense numbness This is her most bothersome side. I educated her about this condition I discussed operative and non-operative treatment options The patient would like to proceed with surgery, beginning with her right side The risks and benefits of operative treatment were discussed with the patient and the patient wishes to proceed with surgery. These risks include, but are not limited to risk of damage to blood vessels, nerves, tendons, infection, recurrence, incomplete relief of preoperative symptoms, persistent pain, possible need for further surgery and the risks associated with regional blocks and anesthesia. The plan is to take the patient to the operating room sometime in the next few weeks for the following procedures: 1. Right carpal tunnel release, under general 2. Right cubital tunnel release vs transposition, under general All of the preoperative paperwork including the consent was filled out today. All the patient's questions were answered. The patient understands that they will be contacted by our cashier payments received soon to schedule this procedure She denies blood thinners, asthma, heart, lung, kidney issues She is a Diabetic, her most recent HgA1c was 5.9% on 07/24/22 3. Left Carpal tunnel syndrome, mild-moderate With dense numbness 4. Left Cubital tunnel syndrome, mild With dense numbness She can follow up to discuss treatment for her left side when she recovers from her right side surgery Scribed for Nayeli Casper MD by Tyrone Erazo, medical practitioners, on [ ] at [ ], EST. Coding Level of Care Code New Pt Level 4 (51178) Diagnoses Bilateral carpal tunnel syndrome G56.03 Cubital tunnel syndrome, bilateral G56.23 Diabetes mellitus, without long-term current use of insulin E11.9 Diabetes mellitus complication status: without complication Diabetes mellitus type: type 2
== END 2022-10-29 15:03 | disposition home or self-care (01) ==
PROVIDERS: PCP Internal Medicine; Visit Provider Orthopaedic Surgery
DX: G56.03 Carpal tunnel syndrome, bilateral upper limbs (principal); G56.23 Lesion of ulnar nerve, bilateral upper limbs
CPT/HCPCS: 99204

== ENCOUNTER → 2022-10-29 14:11 | Outpatient (BNVA) | payer OTHER, SELFPAY | PROVIDERS: PCP Internal Medicine; Visit Provider Orthopaedic Surgery | DX: G56.03 Carpal tunnel syndrome, bilateral upper limbs (principal); G56.23 Lesion of ulnar nerve, bilateral upper limbs; E11.9 Type 2 diabetes mellitus without complications | CPT/HCPCS: 99202 ==

== ENCOUNTER → 2022-10-31 19:30 | Outpatient (BNV) | payer OTHER, SELFPAY | PROVIDERS: PCP Internal Medicine; Visit Provider Psychiatry & Neurology Neurology | DX: G47.33 Obstructive sleep apnea (adult) (pediatric) (principal) | CPT/HCPCS: 95810 ==

== ENCOUNTER → 2022-10-31 19:30 | Outpatient (REF) | payer OTHER, SELFPAY | LOC: HO.SL 19:30 | PROVIDERS: PCP Internal Medicine; Visit Provider Nurse Practitioner Family | DX: G47.33 Obstructive sleep apnea (adult) (pediatric) (principal) | CPT/HCPCS: 95810 ==

== ENCOUNTER 2022-12-08 07:55 | Day surgery (SDC) | payer OTHER, SELFPAY ==
[2022-12-04 13:54] VITALS: BMI 36.2
[2022-12-08] VITALS (9 sets, daily range): BP systolic 124–135; BP diastolic 65–80; PULSE 62–71; RESP 14–18; TEMP 36.1–36.4; O2SAT 97–100
--- NOTE | 2022-12-08 07:56 | W.PM.OPN ---
Operative Note Operative Note Date of Service: 12/08/22 Narrative: Operative Note Narrative: Preop diagnosis: 1. right Cubital tunnel syndrome 2. Right carpal tunnel syndrome Postop diagnosis: Same Procedure: 1. right Cubital Tunnel Release 2. Right carpal tunnel release Surgeon: Nayeli Casper MD Anesthesia: General Anesthesia Findings: Thickening and fibrosis about the ulnar nerve at the cubital tunnel Implants: none Tourniquet time: 40 minutes EBL: 5.0 ml Specimen: none Drains: None Complications: None Disposition: Brought to the recovery room in stable condition Plan: Follow-up in 10-14 days for wound check, and suture removal Indications: The patient is 62 years old with right cubital tunnel syndrome and right carpal tunnel syndrome with dense numbness . The risks and benefits of operative treatment, including but not limited to risk of damage to blood vessels, nerves, tendons, infection, recurrence, persistent pain or numbness, incomplete resolution of preoperative symptoms, or need for further surgery were discussed with the patient and they wished to proceed with surgery. Procedure: Once consent was obtained patient was brought back to the operating suite and placed in the operating table in a supine position. Perioperative antibiotics and anesthesia was administered by the anesthesia team. The limb was prepped and draped in a standard surgical fashion, and a sterile tourniquet applied to the proximal aspect of the right upper extremity. The limb was elevated exsanguinated with Esmarch bandage and the tourniquet inflated to 250 mm of mercury for a total tourniquet time of 40 minutes. Once assured that we had a good block, a 2.0 cm longitudinal incision was made centered over the right carpal tunnel. The incision was made through the skin to the subcutaneous tissues using a #15 blade. Dissection was made down to the level of the transverse carpal ligament with care being taken to protect the palmar cutaneous nerve. Once the transverse carpal ligament was clearly visualized, a longitudinal incision was made in the transverse carpal ligament 1st using a #15 blade, then using tenotomy scissors under direct visualization. Care was taken to look for and protect the motor branch of the median nerve when seen in this area. Once satisfied with our carpal tunnel release the wound was irrigated with normal saline. A 6 cm gently curved but longitudinally oriented incision was made centered over the cubital tunnel of the right upper extremity. Incision was made through the skin to the subcutaneous tissues using a # 15 Blade. I then dissected down to the level of the medial epicondyle and the cubital tunnel using tenotomy scissors. Care was taken to protect the lateral antebrachial cutaneous nerve. The ulnar nerve was identified just posterior to the medial intermuscular septum. The ulnar nerve was released in a proximal to distal direction using tenotomy in iris scissors while directly visualizing and protecting the ulnar nerve. Thickening and fibrosis was appreciated about the ulnar nerve as it passed through the cubital tunnel. The ulnar nerve was assessed as I passed the elbow through full flexion and extension and was found to remain stable within its groove. At this point the tourniquet was deflated and hemostasis obtained with a brief period of local pressure and bipolar electrocautery. The wounds were copiously irrigated with normal saline. The subcutaneous layer at the elbow was closed with 4-0 Vicryl suture, and the skin edges were reapproximated with 5-0 nylon suture. The wounds were infiltrated with some 0.25% plain Marcaine for postop pain control and sterile dressings and a posterior splint was applied. The patient appears to have tolerated the procedure well and with no complications. All digits were well vascularized conclusion of the case.
[2022-12-08 08:33] LABS: Glucose, Whole Blood 116 mg/dL (60-115)
[2022-12-08] MEDS: Lactated Ringers 1,000 ML 100 ML IVCONT (08:36)
--- NOTE | 2022-12-08 11:00 | P.CONAN_ITS ---
Documented by User: Angelica Romo NP 12/05/22 10:43 HPI - Anesthesia Eval Consult details Narrative: 62yo F for Right Cubital Tunnel Release vs transposition, Right Carpal Tunnel Release PMFSH Active Problems Active Problems: All Active Problems (Updated 11/20/22 @ 16:15 by Chandana Bustos CNP) EVER (obstructive sleep apnea) (Acute) Cubital tunnel syndrome, bilateral (Acute) Restless legs (Acute) Snoring (Acute) Bilateral carpal tunnel syndrome (Acute) Witnessed apneic spells (Acute) Excessive daytime sleepiness (Acute) Osteopenia of multiple sites (Acute) Numbness and tingling in both hands (Acute) Basal cell carcinoma (Acute) Paresthesia of both feet (Acute) Numbness of fingers of both hands (Acute) Lesion of skin of nose (Acute) Encounter for annual routine gynecological examination (Acute) Hammertoes of both feet (Acute) Tinea unguium (Acute) Degenerative joint disease of both hips (Acute) Obstructive sleep apnea (adult) (pediatric) (Acute) Diabetes mellitus, without long-term current use of insulin (Acute) Acquired deformity of toenail (Acute) Diabetic neuropathy (Acute) Supraventricular tachycardia (Acute) Tubular adenoma of colon (Acute) Hyperlipidemia (Acute) Rosacea (Acute) Past Medical History Medical History Bilateral carpal tunnel syndrome Witnessed apneic spells Excessive daytime sleepiness Osteopenia of multiple sites Numbness and tingling in both hands Paresthesia of both feet Numbness of fingers of both hands Lesion of skin of nose Hammertoes of both feet Tinea unguium Degenerative joint disease of both hips Hip pain Diabetes mellitus, without long-term current use of insulin Acquired deformity of toenail Diabetic neuropathy Supraventricular tachycardia Tubular adenoma of colon Hyperlipidemia Basal cell carcinoma Rosacea Family History Family History Father Diabetes mellitus HTN (hypertension) CVD (cardiovascular disease) Myocardial infarction Mother Throat cancer Cancer Maternal Grandfather No problems noted. Maternal Grandmother No problems noted. Paternal Grandfather No problems noted. Paternal Grandmother No problems noted. Other Mental health disorder Substance use disorder Family history of problems with anesthesia: No Surgical History Surgical History History of colonoscopy History of excision of lesion History of basal cell carcinoma excision History of Problems with Anesthesia: No Social History Social History Household Members: Spouse Housing: House Alcohol intake: never Patient Tobacco Use Status: Never used Tobacco e-Cigarette/Vaping Use: Never Used Second Hand Smoke Exposure: No Use of substances other than those prescribed or required for medical reasons: No Are you DNR?: No Advance Directives: No Advance Directives Information Provided: Yes Advance Directives on File: No Current occupational status: employed 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 Sexual orientation: Straight/Heterosexual Gender identity: Female Cognitive needs: No Hearing needs: No Vision needs: Yes Meds Allergies Allergy/AdvReac Type Severity Reaction Status Date / Time No Known Allergies Allergy Verified 10/29/22 14:41 Home Medications Medication Instructions Recorded Confirmed Last Taken Type cholecalciferol (vitamin D3) 125 125 mcg PO DAILY 03/25/22 07/24/22 Unknown History mcg (5,000 unit) capsule Exam Exam Date and Time: December 05, 2022 1042 Height,Weight and Vital Signs: Height 5 ft 4 in Weight 95.708 kg Pertinent Lab Results Pertinent Lab Results: Laboratory Tests 12/19/21 07/23/22 09:54 08:22 WBC 5.1 Hgb 13.8 Hct 41.6 Plt Count 265 Sodium 143 Potassium 4.5 Chloride 107 Carbon Dioxide 25 BUN 22 H Creatinine 0.86 Assessment and Plan Assessment Anesthesia Assessment: Chart Reviewed Final Anesthetic Review Family History of Problems with Anesthesia: No History of Problems with Anesthesia: No Documented by User: Teresa Whitley DO 12/08/22 11:07 [facility] Past Medical History Medical History Bilateral carpal tunnel syndrome Witnessed apneic spells Excessive daytime sleepiness Osteopenia of multiple sites Numbness and tingling in both hands Paresthesia of both feet Numbness of fingers of both hands Lesion of skin of nose Hammertoes of both feet Tinea unguium Degenerative joint disease of both hips Hip pain Diabetes mellitus, without long-term current use of insulin Acquired deformity of toenail Diabetic neuropathy Supraventricular tachycardia Tubular adenoma of colon Hyperlipidemia Basal cell carcinoma Rosacea Family History Family History Father Diabetes mellitus HTN (hypertension) CVD (cardiovascular disease) Myocardial infarction Mother Throat cancer Cancer Maternal Grandfather No problems noted. Maternal Grandmother No problems noted. Paternal Grandfather No problems noted. Paternal Grandmother No problems noted. Other Mental health disorder Substance use disorder Family history of problems with anesthesia: No Surgical History Surgical History History of colonoscopy History of excision of lesion History of basal cell carcinoma excision History of Problems with Anesthesia: No Social History Social History Household Members: Spouse Housing: House Alcohol intake: never Patient Tobacco Use Status: Never used Tobacco e-Cigarette/Vaping Use: Never Used Second Hand Smoke Exposure: No Use of substances other than those prescribed or required for medical reasons: No Are you DNR?: No Advance Directives: No Advance Directives Information Provided: Yes Advance Directives on File: No Current occupational status: employed 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 Sexual orientation: Straight/Heterosexual Gender identity: Female Cognitive needs: No Hearing needs: No Vision needs: Yes Meds Allergies Allergy/AdvReac Type Severity Reaction Status Date / Time No Known Allergies Allergy Verified 10/29/22 14:41 Home Medications Medication Instructions Recorded Confirmed Last Taken Type cholecalciferol (vitamin D3) 125 125 mcg PO DAILY 03/25/22 07/24/22 Unknown History mcg (5,000 unit) capsule Exam Exam Date and Time: December 08, 2022 1105 Height,Weight and Vital Signs: Height 5 ft 4 in Weight 95.708 kg Vital Signs Temperature 97.5 F 12/08/22 08:35 Pulse Rate 70 12/08/22 08:35 Respiratory Rate 16 12/08/22 08:35 Blood Pressure 133/80 12/08/22 08:35 Pulse Oximetry 97 12/08/22 08:35 Oxygen Delivery Method Room Air 12/08/22 08:35 Temperature 97.5 F 12/08/22 08:35 Pulse Rate 70 12/08/22 08:35 Respiratory Rate 16 12/08/22 08:35 Blood Pressure 133/80 12/08/22 08:35 Pulse Oximetry 97 12/08/22 08:35 Oxygen Delivery Method Room Air 12/08/22 08:35 Airway Mallampati Class: II TM Dist: <=3cm Neck ROM: Full Loose/Missing/Broken Teeth: Yes (loose crown lower right molar) Heart: S1S2 Lungs: CTAB Assessment and Plan Assessment Anesthesia Assessment: Anesthesia Plan Discussed and Chart Reviewed Final Anesthetic Review Family History of Problems with Anesthesia: No History of Problems with Anesthesia: No NPO: Yes ASA Class: II Final Preanesthetic Review: No Changes in Pt Med Stat, Meds/Allgs Chart Reviewed, Consent Obtained/Reviewed and Anes Risks/Benef Reviewed Patient Risk: Low Procedure Risk: Low Anesthetic Plan Anesthetic Plan: GA and Agree w/ Assess. and Plan Disposition: Standard PACU
--- NOTE | 2022-12-08 11:38 | MHC.SHP ---
Pre-Procedural Eval Section A Date of Service: 12/08/22 The patient is an INPATIENT: No Changes since office visit: No Cold of Flu in the past 2 weeks, No New Medical Problems, No Changes in Medication and No Patient answered all questions The History & Physical has been completed within 30 days and I have reviewed it.: Yes Section B Chief Complaint: right carpal tunnel syndrome and right cubital tu Allergies: Allergies Allergy/AdvReac Type Severity Reaction Status Date / Time No Known Allergies Allergy Verified 10/29/22 14:41 Plan I have reviewed the history and physical and performed a pertinent physical examination on my patient. No changes have occurred unless specified. Time Spent With Patient Time: Total time managing care of this patient today ____ minutes.
[2022-12-08 13:26] LABS: Glucose, Whole Blood 115 mg/dL (60-115)
== END 2022-12-08 15:51 | disposition home or self-care (01) ==
PROVIDERS: PCP Internal Medicine; Visit Provider Orthopaedic Surgery
PROC: (CPT 64718; principal; 2022-12-08 09:40)
PROC: (CPT 64721; 2022-12-08 09:40)
DX: G56.01 Carpal tunnel syndrome, right upper limb (principal); G56.21 Lesion of ulnar nerve, right upper limb; G47.33 Obstructive sleep apnea (adult) (pediatric); R20.0 Anesthesia of skin; R20.2 Paresthesia of skin; E11.40 Type 2 diabetes mellitus with diabetic neuropathy, unspecified; E78.5 Hyperlipidemia, unspecified; Z79.84 Long term (current) use of oral hypoglycemic drugs; Z79.899 Other long term (current) drug therapy; Z85.828 Personal history of other malignant neoplasm of skin; Z98.890 Other specified postprocedural states
CPT/HCPCS: 64721; 82947; J0131; J0690; J1100; J2405; J2795; J3010

== ENCOUNTER → 2022-12-08 07:55 | Outpatient (BNV) | payer OTHER, SELFPAY | PROVIDERS: PCP Internal Medicine; Visit Provider Orthopaedic Surgery | DX: G56.01 Carpal tunnel syndrome, right upper limb (principal); G56.21 Lesion of ulnar nerve, right upper limb | CPT/HCPCS: 64718; 64721 ==

== ENCOUNTER 2022-12-22 14:47 | Outpatient (AMB) | payer OTHER, SELFPAY ==
--- NOTE | 2022-12-22 14:49 | MHC.OFFVIS ---
Intake Intake Visit Reasons: PO-Rt CTR, Rt Cubital Release 12/08/22 AR Intake Note: Olive is a 62 year old female who presents today for a post op appointment s/p right CTR, right cubital release 12/08/22 AR. Patient reports she is not doing so good.n She states after her surgery she started to get chills and having some constipation. Allergies No Known Allergies Allergy (Verified 12/22/22 15:00) HPI PO-Rt CTR, Rt Cubital Release 12/08/22 AR HPI Details 62-year-old right hand dominant female who returns to the office today for post-op right CTR and right cubital tunnel release, 12/08/[address] Casper. She continues to have numbness and tingling as well as stiffness in her right hand. She also c/o chills and mild constipation s/p surgery. She is doing well otherwise and has no concerns today. Procedure 12/08/22: 1. right Cubital Tunnel Release 2. Right carpal tunnel release [facility] Medical History Bilateral carpal tunnel syndrome Witnessed apneic spells Excessive daytime sleepiness Osteopenia of multiple sites Numbness and tingling in both hands Paresthesia of both feet Numbness of fingers of both hands Lesion of skin of nose Hammertoes of both feet Tinea unguium Degenerative joint disease of both hips Hip pain Diabetes mellitus, without long-term current use of insulin Acquired deformity of toenail Diabetic neuropathy Supraventricular tachycardia Tubular adenoma of colon Hyperlipidemia Basal cell carcinoma Rosacea Surgical History History of colonoscopy History of excision of lesion History of basal cell carcinoma excision Family History Father Diabetes mellitus HTN (hypertension) CVD (cardiovascular disease) Myocardial infarction Mother Throat cancer Cancer Maternal Grandfather No problems noted. Maternal Grandmother No problems noted. Paternal Grandfather No problems noted. Paternal Grandmother No problems noted. 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 She has good sensation over the ulnar aspect of elbow down into the forearm. She does have numbness along the ulnar aspect of her hand which extends to her small finger. She does have good sensation through the medial distribution of the hand. She can fully extend and flex the digit. Pulses are intact. Results Reviewed Results Reviewed: IMPRESSION: 1. Mild to moderate left and mild right median neuropathy across carpal tunnel. 2. Mild bilateral ulnar neuropathy across cubital tunnel. Assessment & Plan Assessment & Plan (1) Cubital tunnel syndrome, bilateral: Code(s): G56.23 - Lesion of ulnar nerve, bilateral upper limbs (2) Bilateral carpal tunnel syndrome: Code(s): G56.03 - Carpal tunnel syndrome, bilateral upper limbs Plan Sutures removed today, steri strips applied. She can slowly increase activity as tolerated. However, she will perform no lifting more than a cellphone for the next 6 weeks. She will remain out of work until her next follow-up appointment. Patient Instructions: Scribed for Dominic Borges PA-C, by Freddy Reilly medical affairs specialist, on 12/22/2022 at 3:00 PM EST. I, Dominic Borges PA-C, have personally reviewed and agree with the information entered by the scribe. Coding Level of Care Code Global (55527) Diagnoses Cubital tunnel syndrome, bilateral G56.23 Bilateral carpal tunnel syndrome G56.03
== END 2022-12-23 11:03 | disposition home or self-care (01) ==
PROVIDERS: PCP Internal Medicine; Visit Provider Physician Assistant
DX: G56.23 Lesion of ulnar nerve, bilateral upper limbs (principal); G56.03 Carpal tunnel syndrome, bilateral upper limbs
CPT/HCPCS: 99024

== ENCOUNTER → 2022-12-22 14:47 | Outpatient (BNVA) | payer OTHER, SELFPAY | PROVIDERS: PCP Internal Medicine; Visit Provider Physician Assistant ==

== ENCOUNTER 2023-01-21 09:04 | Outpatient (AMB) | payer OTHER, SELFPAY ==
--- NOTE | 2023-01-21 09:12 | A.OFFVIS_ITS ---
Intake Vital Signs 01/21/23 09:16 Height 5 ft 6 in Weight 225 lb BMI 36.3 Intake Visit Reasons: New Prob - left hip pain Intake Note: Olive is a 63 year old female who presents today for a second opinion of her left hip pain. Patient states she is off balance for a couple years. No hx of previous treatment. She reports that she would like to know if there is other treatment options for her hip pain. Allergies No Known Allergies Allergy (Verified 12/22/22 15:00) HPI HPI Comments History of Present Illness Details History of diabetes with neuropathy. X-rays have shown degenerative changes of the hips, moderate on left, 2019. Repeat x-rays done today in the clinic. Denies pain but admits some discomfort on left groin. Some lateral back pain. Main issue is poor balance, wobbling, leaning to left. Uses cane to help with balance. Burning on feet. Mentions ingrown toe nail. Denies weakness. For hip, no injection in past. Has seen chiropractor for back. [facility] Medical History (Updated 01/21/23 @ 09:37 by Zaira Weiss MD) Degenerative joint disease of left hip Bilateral carpal tunnel syndrome Witnessed apneic spells Excessive daytime sleepiness Osteopenia of multiple sites Numbness and tingling in both hands Paresthesia of both feet Numbness of fingers of both hands Lesion of skin of nose Hammertoes of both feet Tinea unguium Degenerative joint disease of both hips Hip pain Diabetes mellitus, without long-term current use of insulin Acquired deformity of toenail Diabetic neuropathy Supraventricular tachycardia Tubular adenoma of colon Hyperlipidemia Basal cell carcinoma Rosacea Surgical History History of colonoscopy History of excision of lesion History of basal cell carcinoma excision Family History Father Diabetes mellitus HTN (hypertension) CVD (cardiovascular disease) Myocardial infarction Mother Throat cancer Cancer Maternal Grandfather No problems noted. Maternal Grandmother No problems noted. Paternal Grandfather No problems noted. Paternal Grandmother No problems noted. 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 Patient was appropriately conversant and oriented. Good historian. MSK: No specific abnormalities found on inspection of the spine and all extremities. No pain with palpation over the lumbar area. Very mild tenderness on left lateral hip/GT. No tenderness in SI joint. Lumbar ROM was full. Limited range of motion left hip with crepitus. Hip flexor weakness on left. Straight-leg raising test negative. FABERE test positive, limited range of motion, crepitus, left. Scour test is deferred. Leg length discrepancy: True leg length 35.5 in on left versus 37 in on right. Neurological: Strength is 4/5 in left hip flexor, 5/5 in other muscle groups tested. No increased tone noted. Desir?s negative bilaterally. Babinski was down going bilaterally. Clonus was negative. Gait is non-antalgic without loss of balance. Results Reviewed Results Reviewed: I independently reviewed the results of the following: X-ray done today shows decreased joint space in the hip superiorly.? Await final reading. I reviewed records from the following: [facility] - post-op right CTR and right cubital tunnel release, 12/08/[address] Casper Assessment & Plan Assessment & Plan (1) Degenerative joint disease of left hip: Code(s): M16.12 - Unilateral primary osteoarthritis, left hip Qualifiers: Osteoarthritis type: primary Qualified Code(s): M16.12 - Unilateral primary osteoarthritis, left hip Plan Suspect all symptoms are coming from left hip arthritis. Do not see signs of lumbar radiculopathy or SI joint dysfunction. She does have leg length discrepancy which she thinks is from loss of joint space on left hip joint. We discussed surgical management, hip replacement, which she will consider. She already has an appointment with Dominic CARLOS next week. At after discussing with the marrow, will put referral straight to Dr. Lund for consideration of hip replacement. Offered referral to pain management for hip joint injection but patient defers. I agree because I do not think injection would help in this condition anymore. Await final reading of x-rays. Assessment and plan discussed with patient, and patient was agreeable. All questions were answered thoroughly. Zaira Weiss MD, JAMA Board Certified, [place] [employer] and [employer] (ABPMR) Board Certified, [place] [employer] (ABEM) Orders: Orders XR hip LT min 2V Today M16.12 - Unilateral primary osteoarthritis, left hip Referrals Orthopedics Referral M16.12 - Unilateral primary osteoarthritis, left hip Coding Level of Care Code New Pt Level 4 (41391) Diagnoses Primary osteoarthritis of left hip M16.12 Osteoarthritis type: primary
[2023-01-21 09:16] VITALS: BMI 36.3
== END 2023-01-21 10:04 | disposition home or self-care (01) ==
PROVIDERS: PCP Internal Medicine; Visit Provider Physical Medicine & Rehabilitation
DX: M16.12 Unilateral primary osteoarthritis, left hip (principal)
CPT/HCPCS: 99213

== ENCOUNTER 2023-01-21 09:11 | Outpatient (REF) | payer OTHER, SELFPAY ==
--- NOTE | ~2023-01-21 | XR_ITS ---
EXAMINATION: XR HIP, LEFT CLINICAL INFORMATION: Left hip primary osteoarthritis. COMPARISON: Radiographs dated 12/14/2019. TECHNIQUE: AP and frog-leg lateral views of the left hip. FINDINGS: There is bony demineralization. There is marked narrowing of the superior left acetabular joint space. There is some subluxation of the left hip joint. There is mild flattening of the left femoral head. No acute fracture or dislocation is seen. There are multiple pelvic phleboliths. XR/XR hip LT min 2V IMPRESSION: 1. There is marked osteoarthritic change of the left hip, with subluxation. 2. There is mild flattening of the left femoral head, raising the possibility of early avascular necrosis. 3. No fracture or dislocation is seen.
== END 2023-01-21 09:12 | disposition home or self-care (01) ==
LOC: HO.HOSX 09:11
PROVIDERS: Visit Provider Physical Medicine & Rehabilitation
DX: M16.12 Unilateral primary osteoarthritis, left hip (principal)
CPT/HCPCS: 73502; 99212

== ENCOUNTER 2023-01-27 09:45 | Outpatient (AMB) | payer OTHER, SELFPAY ==
[2023-01-27 09:52] VITALS: BMI 36.3
--- NOTE | 2023-01-27 09:52 | A.OFFVIS_ITS ---
Intake Vital Signs 01/27/23 09:52 Height 5 ft 6 in Weight 225 lb BMI 36.3 Intake Visit Reasons: PO-PO-Rt CTR, Rt Cubital Release 12/08/22 AR Intake Note: Olive is a 62 year old female who presents today for a post op appointment s/p right CTR, right cubital release 12/08/22 AR. Patient reports she continues to have numbness in her pinky, ring and middle finger and her hand is swollen. Allergies No Known Allergies Allergy (Verified 01/27/23 09:57) HPI PO-PO-Rt CTR, Rt Cubital Release 12/08/22 AR HPI Details Olive is a 63 year old right hand dominant woman who presents S/P right carpal & cubital tunnel release, DOS: 12/08/22. She continues to have numbness in her ring, and small fingers, and is frustrated by this. She says sensation in her index & middle fingers have improved somewhat, and she denies any numbness in her thumb. She also complains of swelling in her right hand, along with some stiffness, and she says her hand function has been affected. She does say she has not been using her hand for heavy activities or using her cane for walking. Interestingly she says she has been having chills and sensations of feeling cold since her surgery. She is wearing a short-sleeve shirt. In regards to her left hand she has normal sensation in her thumb, and tingling in the tips of other digits. She says her numbness is intermittent, but daily, and worse at night. She is hesitant to consider surgery for her left hand due to her post-op recovery after her right hand surgery. She is a Diabetic which she says is well controlled. 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 [facility] Medical History (Updated 01/21/23 @ 09:37 by Zaira Weiss MD) Degenerative joint disease of left hip Bilateral carpal tunnel syndrome Witnessed apneic spells Excessive daytime sleepiness Osteopenia of multiple sites Numbness and tingling in both hands Paresthesia of both feet Numbness of fingers of both hands Lesion of skin of nose Hammertoes of both feet Tinea unguium Degenerative joint disease of both hips Hip pain Diabetes mellitus, without long-term current use of insulin Acquired deformity of toenail Diabetic neuropathy Supraventricular tachycardia Tubular adenoma of colon Hyperlipidemia Basal cell carcinoma Rosacea Surgical History History of colonoscopy History of excision of lesion History of basal cell carcinoma excision Family History Father Diabetes mellitus HTN (hypertension) CVD (cardiovascular disease) Myocardial infarction Mother Throat cancer Cancer Maternal Grandfather No problems noted. Maternal Grandmother No problems noted. Paternal Grandfather No problems noted. Paternal Grandmother No problems noted. 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 Sexual orientation: Straight/Heterosexual Gender identity: Female Cognitive needs: No Hearing needs: No Vision needs: Yes Female Reproductive History Menstrual Age of Menarche: 12 Review of Systems Const All systems reviewed & are unremarkable except as noted in HPI and below Physical Exam Vital Signs: BMI result Body Mass Index 36.3 Const General: no acute distress and alert Orientation/consciousness: patient oriented x3 Neuro General: patient oriented x3 Extrem Other: The patient was alert oriented and in no acute distress The incision is well-healed with no erythema drainage or evidence of infection. Regarding the right side: All wounds are well healed with no evidence of infection. Good finger abduction and adduction and finger cross. Good APB muscle belly firing Some improvement in sensation in the median nerve distribution, but it is not yet normal. She still feels like she has dense numbness in the right small and ring fingers. She can make a fist and extend all of her digits. Cap refill is brisk Regarding the left side, she says she has a tingling sensation in her fingers, particularly the small and ring. However says it is not as bad as the right side was. Nerve Conduction Study: IMPRESSION: 1. Mild to moderate left and mild right median neuropathy across carpal tunnel. 2. Mild bilateral ulnar neuropathy across cubital tunnel. Ofelia Brower MD 04/17/2022 Psych Appearance: grossly normal Affect: normal affect Attitude: cooperative Assessment & Plan Assessment & Plan (1) Bilateral carpal tunnel syndrome: Code(s): G56.03 - Carpal tunnel syndrome, bilateral upper limbs (2) Cubital tunnel syndrome, bilateral: Code(s): G56.23 - Lesion of ulnar nerve, bilateral upper limbs (3) Diabetes mellitus, without long-term current use of insulin: Comment: NIDDM Code(s): E11.9 - Type 2 diabetes mellitus without complications Qualifiers: Diabetes mellitus complication status: without complication Diabetes mellitus type: type 2 Qualified Code(s): E11.9 - Type 2 diabetes mellitus without complications Plan Assessment & Plan: 1. Right Carpal tunnel syndrome, S/P release Pre-operatively with dense numbness to the index and middle finger 2. Right Cubital tunnel, S/P release DOS: 12/08/22 Pre-operatively with dense numbness Now with normal sensation to thumb, improved but not yet normal sensation to index & middle fingers, and still with dense numbness in the ulnar nerve distribution I educated her about this condition & post-op recovery I explained it can take up to 9 months post-operatively for her sensation to improve, if at all. I ordered OT hand therapy to work on normalizing hand function and improve her stiffness She is able to return to full use of her hand at this time. She was given a note for work to return to full duty, without restrictions, beginning on 02/02/23. 3. Left Carpal tunnel syndrome, mild-moderate With tingling in the index & middle fingers, worse at night 4. Left Cubital tunnel syndrome, mild Primarily with tingling, worse at night I discussed the risks of delaying treatment in regards to permanent loss of sensation She would like to wait until summer next year before considering surgery. She would like to focus on her hip OA and says it has been difficult to walk using her cane following surgery, so she would like her right hand to be fully recovered before having surgery on her left. She can follow up to discuss treatment for her left side at a later date Scribed for Nayeli Casper MD by Tyrone Erazo, medical technologist hematology, on 01/27/23 at 10:20 AM, EST. Orders: Orders OT Evaluation and Treatment Today G56.03 - Carpal tunnel syndrome, bilateral upper limbs, G56.23 - Lesion of ulnar nerve, bilateral upper limbs Coding Level of Care Code Est Pt Level 3 (02811) Diagnoses Bilateral carpal tunnel syndrome G56.03 Cubital tunnel syndrome, bilateral G56.23 Type 2 diabetes mellitus without complication, without long-term current use of insulin E11.9 Diabetes mellitus complication status: without complication Diabetes mellitus type: type 2
== END 2023-01-27 10:36 | disposition home or self-care (01) ==
PROVIDERS: PCP Internal Medicine; Visit Provider Orthopaedic Surgery
DX: G56.03 Carpal tunnel syndrome, bilateral upper limbs (principal); G56.23 Lesion of ulnar nerve, bilateral upper limbs; E11.9 Type 2 diabetes mellitus without complications
CPT/HCPCS: 99024

== ENCOUNTER → 2023-01-27 09:45 | Outpatient (BNVA) | payer OTHER, SELFPAY | PROVIDERS: PCP Internal Medicine; Visit Provider Orthopaedic Surgery | DX: G56.03 Carpal tunnel syndrome, bilateral upper limbs (principal); G56.23 Lesion of ulnar nerve, bilateral upper limbs; E11.9 Type 2 diabetes mellitus without complications | CPT/HCPCS: 99212 ==

== ENCOUNTER 2023-01-29 14:02 | Outpatient (AMB) | payer OTHER, SELFPAY ==
--- NOTE | 2023-01-29 14:14 | MHC.OFFVIS ---
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 She is doing well with no concerns. She had BCC removed from her nose yesterday has a large bandage on. Attempting to eat a healthy diet with calcium and vitamin D, no exercise with physical disabilities currently. Recent carpal tunnel surgery has resulted with some constipation after using medication. Currently not sexually active. Denies any vaginal dryness or irritation. Last pap smear; UTD. Last mammogram; up to date. Colonoscopy is UTD. Denies any family history of breast, ovarian or colon cancer. [facility] Medical History Degenerative joint disease of left hip Bilateral carpal tunnel syndrome Witnessed apneic spells Excessive daytime sleepiness Osteopenia of multiple sites Numbness and tingling in both hands Paresthesia of both feet Numbness of fingers of both hands Lesion of skin of nose Hammertoes of both feet Tinea unguium Degenerative joint disease of both hips Hip pain Diabetes mellitus, without long-term current use of insulin Acquired deformity of toenail Diabetic neuropathy Supraventricular tachycardia Tubular adenoma of colon Hyperlipidemia Basal cell carcinoma Rosacea Surgical History History of colonoscopy History of excision of lesion History of basal cell carcinoma excision Family History Father Diabetes mellitus HTN (hypertension) CVD (cardiovascular disease) Myocardial infarction Mother Throat cancer Cancer Maternal Grandfather No problems noted. Maternal Grandmother No problems noted. Paternal Grandfather No problems noted. Paternal Grandmother No problems noted. 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 Sexual orientation: Straight/Heterosexual Gender identity: Female Cognitive needs: No Hearing needs: No Vision needs: Yes Female Reproductive History Menstrual Age of Menarche: 12 Total pregnancies: 2 Full term: 2 Number of Living Children: 2 Date of last pap smear: 01/10/21 (neg pap and hpv) Date of Mammogram: 02/11/22 (Birad 1) Date of last Bone Density Screenin02/11/22 Review of Systems Const All systems reviewed & are unremarkable except as noted in HPI and below Reports as per HPI Eyes Reports no additional complaints ENT Reports no additional complaints Card Reports no additional complaints Resp Reports no additional complaints GI Reports as per HPI and Reports no additional complaints Reports as per HPI Musc Reports no additional complaints Skin/Breast Reports as per HPI Neuro Reports no additional complaints Psych Reports no additional complaints Endo Reports no additional complaints Nathan/Lymph Reports no additional complaints Aller/Immun Reports no additional complaints Physical Exam Vital Signs: Last Vital Signs BP 148/86 H 01/29/23 14:16 BMI result Body Mass Index 36.3 Const General: cooperative, healthy appearing, no acute distress, well developed and alert Orientation/consciousness: patient oriented x3 HEENT Head: Yes normal to inspection Eyes General: appearance normal, both eyes and all related structures Neck Neck: Yes normal visual inspection Thyroid: Thyroid normal Chest Chest palpation & inspection: normal inspection of the chest and other (no puckering, dimpling, peau de orange, retraction, discharge, masses) Breast/axilla inspection: normal inspection of the breasts Breast/axilla palpation: normal palpation of the breasts Resp Effort & Inspection: normal respiratory effort GI Inspection: Yes normal to inspection Palpation (GI): Soft to palpation Rectal Exam - Female: deferred General: Yes bladder normal to palpation External Female Exam: normal external appearance and normal appearance of the urethra Speculum Exam - Vagina: normal appearance of the vagina, normal palpation and normal vaginal discharge Speculum Exam - Cervix: normal appearance of the cervix and normal palpation Bimanual exam- vagina & uterus: normal bimanual exam, normal palpation, uterine size normal, bladder normal to palpation, normal palpation and non-tender Bimanual Exam- Adnexa, other: no masses and Other ( stool noted in rectal area) Skin General skin exam: no rashes or lesions noted Rashes: no rashes Neuro General: patient oriented x3 Cognition (Neuro): normal cognition Extrem General: Yes normal to inspection Psych Attitude: cooperative Thought process: Normal thought process present Assessment & Plan Assessment & Plan (1) Encounter for well woman exam with routine gynecological exam: Code(s): Z01.419 - Encounter for gynecological examination (general) (routine) without abnormal findings Plan Discussed: Current recommendations for pap smears per ASCCP guidelines. Breast awareness, periodic self breast exams and yearly mammogram. Maintain a healthy lifestyle, well balanced diet including Calcium 1,200 mg and Vitamin D 600 IU daily, and routine exercise. Use of condoms for STI if indicated. Contact the office with any postmenopausal bleeding. Constipation self-help prevention plan with hydration, uses stool softeners, follow-up with primary care as needed. All of her questions and concerns were addressed to the best of my ability. RTO in 1 year for annual wrapping checker exam. Coding Level of Care Code Est Pt Prev Care 40-64y(38366) Diagnoses Encounter for well woman exam with routine gynecological exam Z01.419
[2023-01-29 14:16] VITALS: BP 148/86; BMI 36.3
== END 2023-01-29 15:04 | disposition home or self-care (01) ==
LOC: HO.HWS 14:02
PROVIDERS: PCP Internal Medicine; Visit Provider Advanced Practice Midwife
DX: Z01.419 Encounter for gynecological examination (general) (routine) without abnormal findings (principal)
CPT/HCPCS: 99396

== ENCOUNTER → 2023-01-29 14:02 | Outpatient (BNVA) | payer OTHER, SELFPAY | PROVIDERS: PCP Internal Medicine; Visit Provider Advanced Practice Midwife ==

== ENCOUNTER 2023-02-09 09:40 | Outpatient (AMB) | payer OTHER, SELFPAY ==
--- NOTE | 2023-02-09 09:47 | MHC.OFFVIS ---
Intake Vital Signs 02/09/23 09:50 Height 5 ft 6 in Weight 225 lb BMI 36.3 Intake Visit Reasons: OV- LT Hip pain Intake Note: Olive is a 63 year old female who presents today for a new problem appointment with complaints of left hip pain. Patient reports that she has had worsening left hip pain for the last few years. She reports that it is not really pain, but she feels extremely unstable. She was recently seen with Dr. carlisle who states that she has a leg lentgth descrepancy and would like patient to discuss TESSA Allergies No Known Allergies Allergy (Verified 01/29/23 14:16) HPI OV- LT Hip pain HPI Details Olive is a 63 year old Diabetic woman who presents to discuss her left hip pain. She complains primarily of instability in her left hip with walking, along with some pain. She says this has been present for several years and worsening with time. She localizes her pain to the left groin. She cannot walk without a walker and limps everywhere. She was seen by Dr. Carlisle recently and told she had a leg-length discrepancy. She would like to discuss possible surgery. [facility] Medical History Degenerative joint disease of left hip Bilateral carpal tunnel syndrome Witnessed apneic spells Excessive daytime sleepiness Osteopenia of multiple sites Numbness and tingling in both hands Paresthesia of both feet Numbness of fingers of both hands Lesion of skin of nose Hammertoes of both feet Tinea unguium Degenerative joint disease of both hips Hip pain Diabetes mellitus, without long-term current use of insulin Acquired deformity of toenail Diabetic neuropathy Supraventricular tachycardia Tubular adenoma of colon Hyperlipidemia Basal cell carcinoma Rosacea Surgical History History of colonoscopy History of excision of lesion History of basal cell carcinoma excision Family History Father Diabetes mellitus HTN (hypertension) CVD (cardiovascular disease) Myocardial infarction Mother Throat cancer Cancer Maternal Grandfather No problems noted. Maternal Grandmother No problems noted. Paternal Grandfather No problems noted. Paternal Grandmother No problems noted. 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 Sexual orientation: Straight/Heterosexual Gender identity: Female Cognitive needs: No Hearing needs: No Vision needs: Yes Female Reproductive History Menstrual Age of Menarche: 12 Review of Systems Const All systems reviewed & are unremarkable except as noted in HPI and below Physical Exam Vital Signs: BMI result Body Mass Index 36.3 Const General: no acute distress, alert and awake Orientation/consciousness: patient oriented x3 HEENT Head: Yes normocephalic and Yes atraumatic Eyes EOM: EOMs intact bilaterally Resp Effort & Inspection: normal respiratory effort and able to speak in complete sentences Cardio Jugular venous distension: no JVD Skin General skin exam: turgor normal Rashes: no rashes Neuro General: patient oriented x3 Extrem Other: Gait antalgia ER left LE No internal rotation and FF to 70 deg only + gait antalgia Psych Appearance: grossly normal Affect: normal affect Attitude: cooperative Results Reviewed Results Reviewed: I personally reviewed relevant radiographs 1. There is marked osteoarthritic change of the left hip, with subluxation. 2. There is mild flattening of the left femoral head, raising the possibility of early avascular necrosis. 3. No fracture or dislocation is seen. Assessment & Plan Assessment & Plan (1) Degenerative joint disease of left hip: Code(s): M16.12 - Unilateral primary osteoarthritis, left hip Qualifiers: Osteoarthritis type: primary Qualified Code(s): M16.12 - Unilateral primary osteoarthritis, left hip Plan: This is a 63 yo F with right hip OA. Her radiographs demonstrate severe disease with subluxation and shortening. Her quality of life is poor and she has pain with daily activities. Her symptoms have not improved with activity modification and NSAIDs. I recommend right hip arthroplasty. I discussed the risks benefits and alternatives including but not limited to the risk of pain, infection, stiffness, leg length discrepancy, dislocation, nerve injury and need for further surgery as well as potential medical complications such as blood clots, pulmonary embolism and cardiac complications. Plan Scribed for Gal Lund MD by Tyrone Erazo medical office secretary, on 02/09/23 at 10:00 AM, EST. Coding Level of Care Code Est Pt Level 4 (58738) Diagnoses Primary osteoarthritis of left hip M16.12 Osteoarthritis type: primary
[2023-02-09 09:50] VITALS: BMI 36.3
== END 2023-02-09 11:14 | disposition home or self-care (01) ==
PROVIDERS: PCP Internal Medicine; Visit Provider Orthopaedic Surgery
DX: M16.12 Unilateral primary osteoarthritis, left hip (principal)
CPT/HCPCS: 99214

== ENCOUNTER → 2023-02-09 09:40 | Outpatient (BNVA) | payer OTHER, SELFPAY | PROVIDERS: PCP Internal Medicine; Visit Provider Orthopaedic Surgery | DX: M16.12 Unilateral primary osteoarthritis, left hip (principal) | CPT/HCPCS: 99212 ==

== ENCOUNTER 2023-02-13 14:13 | Outpatient (REF) | payer OTHER, SELFPAY ==
--- NOTE | ~2023-02-13 | MM_ITS ---
EXAMINATION: MM SCREENING DIGITAL BREAST TOMOSYNTHESIS, BILATERAL CLINICAL INFORMATION: Screening. Asymptomatic. COMPARISON: Mammography: This study is compared with prior exams dating back to 2016. TECHNIQUE: Digital breast tomosynthesis is performed in both the craniocaudal and mediolateral oblique views along with computer-aided detection (CAD). Synthesized 2D images are generated from the tomosynthesis. FINDINGS: There are scattered areas of fibroglandular density (ACR BI-RADS breast composition Category b). There are no significant masses, abnormal calcifications, or other abnormalities. There are few, unchanged, bilateral benign calcifications. MM/MM tomosynthesis screening BI IMPRESSION: No mammographic evidence of malignancy. ASSESSMENT: BI-RADS BI-RADS 2 - Benign Findings RECOMMENDATION: Routine annual mammography screening. 1 year F/U This examination should not preclude the clinical evaluation of a suspicious palpable abnormality. This patient's information was entered into a reminder system with a target due date for their next mammogram.
== END 2023-02-13 14:14 | disposition home or self-care (01) ==
LOC: HO.MAMMO 14:13
PROVIDERS: PCP Internal Medicine; Visit Provider Internal Medicine
DX: Z12.31 Encounter for screening mammogram for malignant neoplasm of breast (principal)
CPT/HCPCS: 77063; 77067

== ENCOUNTER → 2023-02-13 14:30 | Outpatient (BNV) | payer OTHER, SELFPAY | PROVIDERS: PCP Internal Medicine; Visit Provider Radiology Diagnostic Radiology | DX: Z12.31 Encounter for screening mammogram for malignant neoplasm of breast (principal) | CPT/HCPCS: 77063; 77067 ==

== ENCOUNTER 2023-04-01 11:00 | Outpatient (RCR) | payer OTHER, SELFPAY ==
--- NOTE | 2023-03-10 16:48 | MHC.OT.EP ---
[address] [phone] Occupational Therapy Plan of Care Patient Name: Olive Henry Date of Evaluation: 03/10/23 Diagnosis: Bilateral cubital tunnel syndrome Right carpal tunnel release Right cubital tunnel release Pain Location: 0-2 right medial elbow and carpal wrist Pain Score: 2 Pain Scale Used: Numeric (0 - 10) Aggravating Factors: Heavy use of RUE. Lifting 2 1/2 yo grand daughter Alleviating Factors: Assessment: Pt is a 63 yo female 3 months s/p right carpal tunnel release and right cubital tunnel release . Pt also with diagnosis of DM, left cubital tunnel syndrome and left hip OA. She is scheduled for a left TESSA on 05/12/23 Today pt reports her right hand and arm are pain free however her sensation is unchanged. 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 Her goal is to improve her hand sensation and avoid surgery on the left. Pt reports she is limiting her visits to one time a week due to a high co- pay and she may not do the exercises based on her experience of being lazy. 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 Thank you once again for your referral.
--- NOTE | 2023-04-15 13:21 | MHC.OT.DC ---
[address] [phone] F: [phone] Occupational Therapy Discharge Note Patient Name: Olive Henry Provider: Nayeli Casper Diagnosis: Bilateral cubital tunnel syndrome Right carpal tunnel release Right cubital tunnel release Date of Surgery: 12/08/22 Date of Evaluation: 03/10/23 Date of Discharge: 04/15/23 Treatments to Date: 4 Cancellations to Date: 2 No Shows to Date: Discharge Status: Discharge Summary: No change noted. Significant weakness noted. Extensive time spent with re ed and practice with ther ex. Pt scheduled OT 1x a week due to co pay and difficulty getting to OT. She now stopped OT. She is scheduled for hip surgery 05/11/23. Electronically Signed By: Clari De La Cruz OT CHT CLT Reviewed/agree with student documentation: Therapist: Please Sign and return to therapist, thank you for your referral.
== END 2023-04-15 13:23 | disposition home or self-care (01) ==
LOC: HO.OT 11:00
PROVIDERS: PCP Nurse Practitioner Family; Visit Provider Orthopaedic Surgery
DX: G56.03 Carpal tunnel syndrome, bilateral upper limbs (principal); G56.23 Lesion of ulnar nerve, bilateral upper limbs
CPT/HCPCS: 97110; 97140; 97166

== ENCOUNTER → 2023-04-14 08:22 | Outpatient (BNVA) | payer OTHER, SELFPAY | PROVIDERS: PCP Internal Medicine; Visit Provider Orthopaedic Surgery ==

== ENCOUNTER 2023-05-07 12:29 | Outpatient (AMB) | payer OTHER, SELFPAY ==
--- NOTE | 2023-05-07 12:34 | A.OFFVIS_ITS ---
Intake Vital Signs 05/07/23 12:37 Height 5 ft 6 in Weight 225 lb BMI 36.3 Intake Visit Reasons: Preop LT TESSA 05/12/23 NE Allergies Iodinated Contrast Media [IV Contrast Dye] Allergy (Mild, Verified 05/05/23 12:12) Itching Medication List - Last Reconciled 05/07/23 by Dominic Borges PA-C blood sugar diagnostic (FreeStyle Lite Strips) Check fasting blood sugar once a day blood-glucose meter (FreeStyle Lite Meter kit) Check blood sugar as directed once a day before a meal cholecalciferol (vitamin D3) 125 mcg PO BEDTIME lancets (FreeStyle Lancets) Check fasting glucose once a day metformin ER 1,000 mg PO QPM metoprolol succinate ER 25 mg PO BEDTIME metronidazole 1% (Metrogel) apply sparingly to cheeks topical daily; rosuvastatin 5 mg PO BEDTIME HPI HPI Comments History of Present Illness Details MS Henry presents to the office today for preop visit. She is scheduled for left total hip arthroplasty with Dr. Lund. She continues to have ongoing pain and difficulty with ambulation in the left hip, which is affecting her quality of life; therefore, she has elected to move forward with surgery. [facility] Medical History EVER (obstructive sleep apnea) Degenerative joint disease of left hip Bilateral carpal tunnel syndrome Witnessed apneic spells Excessive daytime sleepiness Osteopenia of multiple sites Numbness and tingling in both hands Paresthesia of both feet Numbness of fingers of both hands Lesion of skin of nose Hammertoes of both feet Tinea unguium Degenerative joint disease of both hips Hip pain Diabetes mellitus, without long-term current use of insulin Acquired deformity of toenail Diabetic neuropathy Supraventricular tachycardia Tubular adenoma of colon Hyperlipidemia Basal cell carcinoma Rosacea Surgical History (Updated 05/05/23 @ 12:20 by Angelia Raymundo RN) H/O basal cell carcinoma excision (~01/2023) History of carpal tunnel release (12/08/22) History of colonoscopy History of excision of lesion History of basal cell carcinoma excision Family History Father Diabetes mellitus HTN (hypertension) CVD (cardiovascular disease) Myocardial infarction Mother Throat cancer Cancer Maternal Grandfather No problems noted. Maternal Grandmother No problems noted. Paternal Grandfather No problems noted. Paternal Grandmother No problems noted. 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 Sexual orientation: Straight/Heterosexual Gender identity: Female Cognitive needs: No Hearing needs: No Vision needs: Yes Female Reproductive History Menstrual Age of Menarche: 12 Review of Systems Const All systems reviewed & are unremarkable except as noted in HPI and below Physical Exam Vital Signs: BMI result Body Mass Index 36.3 Const General: cooperative and no acute distress Orientation/consciousness: patient oriented x3 HEENT Head: Yes normal to inspection, Yes normocephalic and Yes atraumatic Eyes General: appearance normal, both eyes and all related structures Neck Neck: Yes normal visual inspection and Yes no lymphadenopathy Resp Effort & Inspection: normal respiratory effort and able to speak in complete sentences Cardio Rate: regular rate Peripheral pulses: Peripheral pulses 2+ throughout GI Inspection: Yes normal to inspection Palpation (GI): Soft to palpation Skin General skin exam: no rashes or lesions noted Neuro General: patient oriented x3 Extrem Other: Left hip: Normal to inspection. No open wound or abrasion. She has pain with ROM and walks with a limp. Psych Appearance: grossly normal Mental Status: mental status grossly normal Assessment & Plan Assessment & Plan (1) Degenerative joint disease of left hip: Code(s): M16.12 - Unilateral primary osteoarthritis, left hip Qualifiers: Osteoarthritis type: primary Qualified Code(s): M16.12 - Unilateral primary osteoarthritis, left hip Plan I discussed in detail the procedure and what to expect pre and post operatively. We discussed the risks, benefits and alternatives to the surgery as well as the rehabilitation course. The risks; which include, but are not limited to infection, bleeding, nerve injury, ongoing pain, swelling, and stiffness, perioperative risk of injury to bones and soft tissues, and blood clots. I?ve answered all questions and with their understanding they have consented to move forward with Left total hip arthroplasty with Dr. Lund [place] [facility] [place] prone to constipation Orders: Orders PT Evaluation and Treatment Today Z96.642 - Presence of left artificial hip joint Patient Instructions: Scribed for Dominic Borges PA-C, by Freddy Reilly expert medical writer, on 05/07/2023 at 12:45 PM EST. I, Dominic Borges PA-C, have personally reviewed and agree with the information entered by the scribe. Coding Level of Care Code Est Pt Level 3 (97842) Diagnoses Primary osteoarthritis of left hip M16.12 Osteoarthritis type: primary
[2023-05-07 12:37] VITALS: BMI 36.3
== END 2023-05-07 13:30 | disposition home or self-care (01) ==
PROVIDERS: PCP Internal Medicine; Visit Provider Physician Assistant
DX: M16.12 Unilateral primary osteoarthritis, left hip (principal)
CPT/HCPCS: 99024

== ENCOUNTER → 2023-05-07 12:29 | Outpatient (BNVA) | payer OTHER, SELFPAY | PROVIDERS: PCP Internal Medicine; Visit Provider Physician Assistant | DX: M16.12 Unilateral primary osteoarthritis, left hip (principal) | CPT/HCPCS: 99212 ==

== ENCOUNTER 2023-05-11 14:35 | Outpatient (REF) | payer OTHER, SELFPAY ==
--- NOTE | ~2023-05-11 | XR_ITS ---
EXAMINATION: XR PELVIS CLINICAL INFORMATION: Total left hip arthroplasty COMPARISON: None available. TECHNIQUE: AP view of the pelvis. FINDINGS: There is a total left hip prosthesis with the prosthetic components in satisfactory alignment. Immediate postoperative changes are seen. The soft tissues are grossly unremarkable. XR/XR pelvis 1-2V IMPRESSION: Total left hip prosthesis with prosthetic components in satisfactory alignment. Immediate postoperative changes are seen.
== END 2023-05-11 14:36 | disposition home or self-care (01) ==
LOC: HO.HOSX 14:35
PROVIDERS: PCP Internal Medicine; Visit Provider Orthopaedic Surgery
DX: M25.551 Pain in right hip (principal); M25.552 Pain in left hip
CPT/HCPCS: 72170

== ENCOUNTER 2023-05-12 05:55 | Inpatient (IN) | payer OTHER, SELFPAY ==
[2023-05-05 12:01] VITALS: BP 125/62; PULSE 73; RESP 16; O2SAT 97; BMI 33.7
--- NOTE | 2023-05-05 12:31 | HO.ANESPROP2 ---
Documented by User: Angelica Romo NP 05/11/23 08:50 HPI - Anesthesia Eval Consult details Narrative: 63yo F for Left Hip Total Replacement, 05/12/23 Medically cleared No recent illness No CP/SOB within limits of hip pain Basal cell excision R nose. 01/2023 DM. Does not check BS at home. A1C 6.3% 04/2023 EVER. Does not use CPAP. [facility] Active Problems Active Problems: All Active Problems (Updated 01/21/23 @ 09:37 by Zaira Weiss MD) EVER (obstructive sleep apnea) (Acute) Cubital tunnel syndrome, bilateral (Acute) Restless legs (Acute) Snoring (Acute) Encounter for annual routine gynecological examination (Acute) Obstructive sleep apnea (adult) (pediatric) (Acute) Degenerative joint disease of left hip (Acute) Bilateral carpal tunnel syndrome (Acute) Witnessed apneic spells (Acute) Excessive daytime sleepiness (Acute) Osteopenia of multiple sites (Acute) Numbness and tingling in both hands (Acute) Basal cell carcinoma (Acute) Paresthesia of both feet (Acute) Numbness of fingers of both hands (Acute) Lesion of skin of nose (Acute) Hammertoes of both feet (Acute) Tinea unguium (Acute) Degenerative joint disease of both hips (Acute) Diabetes mellitus, without long-term current use of insulin (Acute) Acquired deformity of toenail (Acute) Diabetic neuropathy (Acute) Supraventricular tachycardia (Acute) Tubular adenoma of colon (Acute) Hyperlipidemia (Acute) Rosacea (Acute) Past Medical History Medical History EVER (obstructive sleep apnea) Degenerative joint disease of left hip Bilateral carpal tunnel syndrome Witnessed apneic spells Excessive daytime sleepiness Osteopenia of multiple sites Numbness and tingling in both hands Paresthesia of both feet Numbness of fingers of both hands Lesion of skin of nose Hammertoes of both feet Tinea unguium Degenerative joint disease of both hips Hip pain Diabetes mellitus, without long-term current use of insulin Acquired deformity of toenail Diabetic neuropathy Supraventricular tachycardia Tubular adenoma of colon Hyperlipidemia Basal cell carcinoma Rosacea Family History Family History Father Diabetes mellitus HTN (hypertension) CVD (cardiovascular disease) Myocardial infarction Mother Throat cancer Cancer Maternal Grandfather No problems noted. Maternal Grandmother No problems noted. Paternal Grandfather No problems noted. Paternal Grandmother No problems noted. Other Mental health disorder Substance use disorder Family history of problems with anesthesia: No Surgical History Surgical History H/O basal cell carcinoma excision (~01/2023) History of carpal tunnel release (12/08/22) History of colonoscopy History of excision of lesion History of basal cell carcinoma excision History of Problems with Anesthesia: No Social History Social History Household Members: Spouse Housing: House Are you a primary rn intensive care unit to a significant other at home: No Do you presently have visiting nurse or other home services: No Alcohol intake: never Comment: aware of trip hazard Patient Tobacco Use Status: Never used Tobacco e-Cigarette/Vaping Use: Never Used Second Hand Smoke Exposure: No Use of substances other than those prescribed or required for medical reasons: No Have you been hit, kicked, punched, or otherwise hurt by someone within the past year? 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 Sexual orientation: Straight/Heterosexual Gender identity: Female Cognitive needs: No Hearing needs: No Vision needs: Yes Meds Allergies Allergy/AdvReac Type Severity Reaction Status Date / Time Iodinated Contrast Media Allergy Mild Itching Verified 05/05/23 12:12 [IV Contrast Dye] Home Medications Medication Instructions Recorded Confirmed Last Taken Type cholecalciferol (vitamin D3) 125 125 mcg PO BEDTIME 03/25/22 05/07/23 05/11/23 18:00 History mcg (5,000 unit) capsule metoprolol succinate 25 mg 25 mg PO BEDTIME 05/05/23 05/07/23 05/11/23 18:00 History tablet,extended release 24 hr metronidazole 1 % topical gel See Rx Instructions topical DAILY 05/05/23 05/07/23 05/11/23 18:00 History (Metrogel) PRN Rash rosuvastatin 5 mg tablet 5 mg PO BEDTIME 05/05/23 05/07/23 05/11/23 18:00 History Exam Height,Weight and Vital Signs: Height 5 ft 6 in Weight 94.801 kg Last Vital Signs Pulse 73 05/05/23 12:01 Resp 16 05/05/23 12:01 BP 125/62 05/05/23 12:01 Pulse Ox 97 05/05/23 12:01 O2 Del Method Room Air 05/05/23 12:01 Pertinent Lab Results Pertinent Lab Results: BMP and CBC 04/2023 from outside facility WNL Narrative Narrative: EKG 04/27/23 SR @ 81 Nonspecific T wave abn Airway Mallampati Class: II TM Dist: <=3cm Neck ROM: Full Loose/Missing/Broken Teeth: Yes (loose crown lower right molar) Heart: RRR Lungs: CTAB Assessment and Plan Assessment Anesthesia Assessment: Anesthesia Plan Discussed and PAT Visit Final Anesthetic Review Family History of Problems with Anesthesia: No History of Problems with Anesthesia: No Documented by User: Rosa M Leal MD 05/12/23 07:31 [facility] Past Medical History Medical History EVER (obstructive sleep apnea) Degenerative joint disease of left hip Bilateral carpal tunnel syndrome Witnessed apneic spells Excessive daytime sleepiness Osteopenia of multiple sites Numbness and tingling in both hands Paresthesia of both feet Numbness of fingers of both hands Lesion of skin of nose Hammertoes of both feet Tinea unguium Degenerative joint disease of both hips Hip pain Diabetes mellitus, without long-term current use of insulin Acquired deformity of toenail Diabetic neuropathy Supraventricular tachycardia Tubular adenoma of colon Hyperlipidemia Basal cell carcinoma Rosacea Family History Family History Father Diabetes mellitus HTN (hypertension) CVD (cardiovascular disease) Myocardial infarction Mother Throat cancer Cancer Maternal Grandfather No problems noted. Maternal Grandmother No problems noted. Paternal Grandfather No problems noted. Paternal Grandmother No problems noted. Other Mental health disorder Substance use disorder Surgical History Surgical History H/O basal cell carcinoma excision (~01/2023) History of carpal tunnel release (12/08/22) History of colonoscopy History of excision of lesion History of basal cell carcinoma excision Social History Social History Household Members: Spouse Housing: House Are you a primary rn intensive care unit to a significant other at home: No Do you presently have visiting nurse or other home services: No Alcohol intake: never Comment: aware of trip hazard Patient Tobacco Use Status: Never used Tobacco e-Cigarette/Vaping Use: Never Used Second Hand Smoke Exposure: No Use of substances other than those prescribed or required for medical reasons: No Have you been hit, kicked, punched, or otherwise hurt by someone within the past year? 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 Sexual orientation: Straight/Heterosexual Gender identity: Female Cognitive needs: No Hearing needs: No Vision needs: Yes Meds Allergies Allergy/AdvReac Type Severity Reaction Status Date / Time Iodinated Contrast Media Allergy Mild Itching Verified 05/05/23 12:12 [IV Contrast Dye] Home Medications Medication Instructions Recorded Confirmed Last Taken Type cholecalciferol (vitamin D3) 125 125 mcg PO BEDTIME 03/25/22 05/07/23 05/11/23 18:00 History mcg (5,000 unit) capsule metoprolol succinate 25 mg 25 mg PO BEDTIME 05/05/23 05/07/23 05/11/23 18:00 History tablet,extended release 24 hr metronidazole 1 % topical gel See Rx Instructions topical DAILY 05/05/23 05/07/23 05/11/23 18:00 History (Metrogel) PRN Rash rosuvastatin 5 mg tablet 5 mg PO BEDTIME 05/05/23 05/07/23 05/11/23 18:00 History Assessment and Plan Assessment Anesthesia Assessment: Chart Reviewed Final Anesthetic Review NPO: Yes ASA Class: III Final Preanesthetic Review: No Changes in Pt Med Stat, Meds/Allgs Chart Reviewed, Consent Obtained/Reviewed and Anes Risks/Benef Reviewed Patient Risk: Intermediate Procedure Risk: Intermediate Anesthetic Plan Anesthetic Plan: GA Disposition: Standard PACU
[2023-05-05 15:55] LABS: MRSA Nasal PCR NEGATIVE (Negative); SA Nasal PCR NEGATIVE (Negative)
[2023-05-12] VITALS (17 sets, daily range): BP systolic 95–138; BP diastolic 50–84; PULSE 56–70; RESP 14–22; TEMP 35.7–36.6; O2SAT 95–100; BMI 33.8
--- NOTE | ~2023-05-12 | XR_ITS ---
EXAMINATION: XR PELVIS CLINICAL INFORMATION: Status post total left hip arthroplasty. COMPARISON: None available. TECHNIQUE: AP view of the pelvis. FINDINGS: There is a total left hip arthroplasty with prosthetic components in satisfactory alignment. Is a metallic plate with cerclage wires surrounding the prosthesis and the plate. Immediate postoperative changes are noted with surgical reginaldo along the left lateral hip. Right hip joint space is normal. XR/XR pelvis 1-2V IMPRESSION: Status post total left hip arthroplasty with prosthetic components in satisfactory alignment. Immediate postoperative changes are noted.
--- NOTE | ~2023-05-12 | XR_ITS ---
EXAMINATION: XR PELVIS CLINICAL INFORMATION: Total left hip arthroplasty COMPARISON: None available. TECHNIQUE: AP view of the pelvis. FINDINGS: There is a total left hip prosthesis with the prosthetic components in satisfactory alignment. Immediate postoperative changes are seen. The soft tissues are grossly unremarkable. XR/XR pelvis 1-2V IMPRESSION: Total left hip prosthesis with prosthetic components in satisfactory alignment. Immediate postoperative changes are seen.
[2023-05-12] MEDS: oxyCODONE HCl ER 10 MG TAB.ER.12H PO ×2 (06:18→20:33)
[2023-05-12 06:19] LABS: Glucose, Whole Blood 108 mg/dL (60-115)
[2023-05-12] MEDS: Lactated Ringers 1,000 ML 100 ML IVCONT ×3 (06:47→23:22)
--- NOTE | 2023-05-12 07:25 | MHC.SHP ---
Pre-Procedural Eval Section A - 24 Hr Update-Section A only Date of Service: 05/12/23 The patient is an INPATIENT: No Changes since office visit: No Cold of Flu in the past 2 weeks, No New Medical Problems, No Changes in Medication and No Patient answered all questions The patient has been examined within 24 hours of the surgical procedure. The History & Physical has been completed within 30 days and I have reviewed it.: Yes Section B - Complete if H&P > 30 days Chief Complaint: LT TESSA Allergies: Allergies Allergy/AdvReac Type Severity Reaction Status Date / Time Iodinated Contrast Media Allergy Mild Itching Verified 05/05/23 12:12 [IV Contrast Dye] Plan I have reviewed the history and physical and performed a pertinent physical examination on my patient. No changes have occurred unless specified. Time Spent With Patient Time: Total time managing care of this patient today ____ minutes.
--- NOTE | 2023-05-12 07:49 | PHA.MEDREC ---
Pharmacy Consult ? Medication Reconciliation Pharmacy has completed the medication reconciliation. Double checked med rec done by nursing
--- NOTE | 2023-05-12 12:08 | P.BOP_ITS ---
Brief Operative Note Date of Service: 05/12/23 Pre-op diagnosis: left hip OA Post-op diagnosis: same Procedure: Left TESSA with Trochanteric plate fixation Implants: [place] Trident2 50 with 10 deg lipped liner Devin Accolade #4 132 deg with + 4 32 ceramic femoral head Devin Trochanteric claw plate, 100mm with 4 cerclage Surgeon: Gal Lund MD Anesthesia: GETA and local Was an [employer] Fire Control Man used for this Procedure?: Yes [employer] Fire Control Man: Dominic Borges Estimated blood loss (mL): 350 IV fluids (mL): 2,000 Pathology: other Condition: stable Disposition: PACU
[2023-05-12] MEDS: HYDROmorphone HCl 0.5 MG/0.5 ML SYRINGE 0.25 MG IVPUSH ×2 (12:30→12:35)
[2023-05-12] MEDS: 0.9 % Sodium Chloride Flush 3 ML SYRINGE IVFLUSH (14:16)
--- NOTE | 2023-05-12 15:26 | P.CONHOSP_ITS ---
History of Present Illness Data of Consult Service Date: 05/12/23 Primary Care Provider: Rosy Vicente MD HPI 63-year-old woman with a history of diabetes mellitus, obstructive sleep apnea admitted by Orthopedic surgery and is status post left total hip arthroplasty. Surgery was unremarkable. Patient has been able to eat and drink without any nausea or vomiting. Patient is hemodynamically stable and has no acute medical complaints at this time. Review of Systems 2 Review of Systems: Denies any recent fever chills or decrease in appetite respiratory denies any shortness of breath or cough cardiovascular denied chest pain gastrointestinal denies any dysphagia abdominal pain nausea vomiting or diarrhea genitourinary denies any dysuria frequency or hematuria musculoskeletal denies any joint pain or swelling neuropsych denies any weakness or seizures all other systems reviewed are negative [facility] Medical History EVER (obstructive sleep apnea) Degenerative joint disease of left hip Bilateral carpal tunnel syndrome Witnessed apneic spells Excessive daytime sleepiness Osteopenia of multiple sites Numbness and tingling in both hands Paresthesia of both feet Numbness of fingers of both hands Lesion of skin of nose Hammertoes of both feet Tinea unguium Degenerative joint disease of both hips Hip pain Diabetes mellitus, without long-term current use of insulin Acquired deformity of toenail Diabetic neuropathy Supraventricular tachycardia Tubular adenoma of colon Hyperlipidemia Basal cell carcinoma Rosacea Family History Father Diabetes mellitus HTN (hypertension) CVD (cardiovascular disease) Myocardial infarction Mother Throat cancer Cancer Maternal Grandfather No problems noted. Maternal Grandmother No problems noted. Paternal Grandfather No problems noted. Paternal Grandmother No problems noted. Other Mental health disorder Substance use disorder Surgical History H/O basal cell carcinoma excision (~01/2023) History of carpal tunnel release (12/08/22) History of colonoscopy History of excision of lesion History of basal cell carcinoma excision Social History Household Members: Spouse Housing: House Are you a primary chronic care nurse to a significant other at home: No Do you presently have visiting nurse or other home services: No Alcohol intake: never Comment: aware of trip hazard Patient Tobacco Use Status: Never used Tobacco e-Cigarette/Vaping Use: Never Used Second Hand Smoke Exposure: No Use of substances other than those prescribed or required for medical reasons: No Currently Displaying Signs/Symptoms of Drug Intoxication Withdrawal: No Have you been hit, kicked, punched, or otherwise hurt by someone within the past year? If so, by whom?: No Do you feel safe in your current relationship?: Yes Is there a partner from a previous relationship who is making you feel unsafe now?: No Are you made to feel afraid or neglected: No Are you DNR?: No Advance Directives: No Advance Directives Information Provided: Yes Advance Directives on File: No Do you have thoughts of harming others: None Do you have a plan to hurt others: No Plan Recently lost weight without trying: No Eating poorly because of decreased appetite: No Nutrition Risks: No Nutritional Risk Patient : No : No Poor oral hygiene: No Current occupational status: employed 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 Sexual orientation: Straight/Heterosexual Gender identity: Female Cognitive needs: No Hearing needs: No Vision needs: Yes Meds Allergies Allergy/AdvReac Type Severity Reaction Status Date / Time Iodinated Contrast Media Allergy Mild Itching Verified 05/05/23 12:12 [IV Contrast Dye] Active Medications: Current Medications Acetaminophen (Acetaminophen 325 Mg Tablet) 650 mg PO Q6H PRN PRN Reason: Pain, Mild (Pain Scale 1-3) Aspirin (Aspirin 325 Mg Tablet) 325 mg PO BID [facility] Celecoxib (Celecoxib 200 Mg Capsule) 200 mg PO BID [facility] Docusate Sodium (Docusate Sodium 100 Mg Capsule) 100 mg PO BID [facility] Fentanyl (Fentanyl Citrate/Pf 100 Mcg/2 Ml Vial) 25 mcg IVPUSH Q10M PRN; Protocol PRN Reason: Pain, Moderate(Pain Scale 4-6) Hydromorphone HCl (Hydromorphone Hcl 0.5 Mg/0.5 Ml Syringe) 0.25 mg IVPUSH Q4H PRN; Protocol PRN Reason: Pain, Severe (Pain Scale 7-10) Lactated Ringer's (Lr) 1,000 mls @ 100 mls/hr IVCONT .Q10H [facility] Stop: 05/13/23 12:01 Last Admin: 05/12/23 14:15 Dose: 100 mls/hr Cefazolin Sodium/Dextrose (Ancef) 2 gm in 50 mls @ 100 mls/hr IV POSTOP MALATHI Magnesium Hydroxide (Milk Of Magnesia 30 Ml Oral.Susp) 30 ml PO DAILY PRN PRN Reason: Constipation Metoprolol Succinate (Metoprolol Succinate Er 25 Mg Tab.Er.24h) 25 mg PO BEDTIME MALATHI; Protocol Ondansetron HCl (Ondansetron Hcl 4 Mg/2 Ml Vial) 4 mg IVPUSH Q8H PRN PRN Reason: Nausea and Vomiting Oxycodone HCl (Oxycodone Hcl Immed Release 5 Mg Tablet) 5 mg PO Q4H PRN PRN Reason: Pain, Moderate(Pain Scale 4-6) Oxycodone HCl (Oxycodone Hcl Er 10 Mg Tab.Er.12h) 10 mg PO BID MALATHI Sodium Chloride (0.9 % Sodium Chloride Flush 3 Ml Syringe) 3 ml IVFLUSH QSHIFT [facility] Last Admin: 05/12/23 14:16 Dose: 3 ml Home Medications Medication Instructions Recorded Confirmed Last Taken Type cholecalciferol (vitamin D3) 125 125 mcg PO BEDTIME 03/25/22 05/07/23 05/11/23 18:00 History mcg (5,000 unit) capsule metoprolol succinate 25 mg 25 mg PO BEDTIME 05/05/23 05/07/23 05/11/23 18:00 History tablet,extended release 24 hr metronidazole 1 % topical gel See Rx Instructions topical DAILY 05/05/23 05/07/23 05/11/23 18:00 History (Metrogel) PRN Rash rosuvastatin 5 mg tablet 5 mg PO BEDTIME 05/05/23 05/07/23 05/11/23 18:00 History Physical Exam 2 Vital Signs and Narrative: Vital Signs: Last Vital Signs Temp 96.2 F L 05/12/23 15:21 Pulse 67 05/12/23 15:21 Resp 19 05/12/23 15:21 BP 119/57 L 05/12/23 15:21 Pulse Ox 100 05/12/23 15:21 O2 Del Method Nasal Cannula 05/12/23 15:21 O2 Flow Rate 2.5 05/12/23 15:21 BMI result Body Mass Index 33.8 Appearing in no acute distress head is normocephalic atraumatic eyes pupils are PERRLA sclera is anicteric mouth throat mucous membranes are intact and moist neck is supple no lymphadenopathy, no JVD noted lung sounds are clear to auscultation heart regular rate rhythm, clear S1, S2 positive bowel sounds, abdomen is soft, nontender neuro patient is alert x3, no focal deficits Results Labs 05/13/23 05:09 05/13/23 05:09 Labs: Laboratory Results - last 24 hr 05/12/23 06:13 POC Glucose 108 Imaging Radiologist's Impressions: Impressions Pelvis X-Ray 05/12/23 10:07 IMPRESSION: Total left hip prosthesis with prosthetic components in satisfactory alignment. Immediate postoperative changes are seen. Pelvis X-Ray 05/12/23 11:56 IMPRESSION: Status post total left hip arthroplasty with prosthetic components in satisfactory alignment. Immediate postoperative changes are noted. Assessment and Plan (1) EVER (obstructive sleep apnea): Status: Acute (2) Cubital tunnel syndrome, bilateral: Status: Acute Plan 63 year old women status post left total hip arthroplasty with trochanteric plate fixation Left total hip arthroplasty Management as per surgical team Pain management Bowel regimen Diabetes mellitus type 2 Sliding scale ADA diet History of tachycardia Continue metoprolol Obstructive sleep apnea not on cpap Obesity. BMI 33.8 Discussed importance of weight management as this may be contributing to worsening of other comorbidities DVT prophylaxis with full-dose aspirin Full code Medical consultation complete. Will sign off
[2023-05-12 16:11] LABS: Glucose, Whole Blood 172 mg/dL (60-115)
[2023-05-12] MEDS: Insulin Lispro 100 UNIT/ML 3 ML VIAL SUBCUT ×2 (16:51→20:33)
[2023-05-12] MEDS: Sennosides 8.6 MG TABLET PO (16:51)
[2023-05-12] MEDS: ceFAZolin Sodium/Dextrose,Iso 2 GM/50 ML PIGGYBACK IV (16:51)
[2023-05-12 20:02] LABS: Glucose, Whole Blood 171 mg/dL (60-115)
[2023-05-12] MEDS: polyethylene glycoL 3350 17 GM POWD.PACK PO (20:32)
[2023-05-12] MEDS: Docusate Sodium 100 MG CAPSULE PO (20:33)
[2023-05-12] MEDS: Celecoxib 200 MG CAPSULE PO (20:33)
[2023-05-12] MEDS: Metoprolol Succinate ER 25 MG TAB.ER.24H PO (20:33)
[2023-05-12] MEDS: Acetaminophen 325 MG TABLET 650 MG PO (20:33)
[2023-05-13] VITALS (7 sets, daily range): BP systolic 102–107; BP diastolic 53–56; PULSE 70–90; RESP 16–20; TEMP 36.1–36.6; O2SAT 93–99
--- NOTE | 2023-05-13 00:24 | PC.NURSE ---
Patient assisted OOB to commode with walker, patient tolerated well, no complaints of pain.
[2023-05-13 05:44] LABS: MANUAL DIFF FLAG NO
[2023-05-13 05:49] LABS: Basophils Percent Auto 0.3 % (0-2); Eosinophils Percent Auto 0.5 % (0-4); Hematocrit 27.2 % (37.0-47.0); Hemoglobin 9.1 g/dl (12.0-16.0); Imm Gran Abs Auto 0.03 X10*3/uL (0.00-0.03); Imm Gran Pct Auto 0.5 % (0.0-0.4); Lymphocytes Absolute Auto 1.1 X10*3/uL (1.2-4.9); Lymphocytes Percent Auto 16.4 % (20-40); Mean Corpuscular HGB Conc 33.5 g/dl (31.0-35.0); Mean Corpuscular Hemoglobin 31.6 pg (27.0-33.0); Mean Corpuscular Volume 94.4 fL (80.0-98.0); Mean Platelet Volume 9.8 fL (9.4-12.3); Monocytes Absolute Auto 0.8 X10*3/uL (0.1-1.2); Monocytes Percent Auto 12.5 % (2-11); Neutrophils Absolute Auto 4.5 x10*3/uL (2.0-8.3); Neutrophils Percent Auto 69.8 % (45-73); Platelet Count 176 X10*3/uL (160-400); Red Blood Count 2.88 X10*6/uL (4.20-5.50); Red Cell Distribution Width 13.2 % (11.0-16.0); White Blood Count 6.4 X10*3/uL (4.8-10.8)
[2023-05-13 06:08] LABS: Anion Gap 9 (12-20); Blood Urea Nitrogen 19 mg/dL (9-16); Calcium 8.8 mg/dL (8.4-10.2); Carbon Dioxide 29 mmol/L (22-29); Chloride 105 mmol/L (96-108); Creatinine Clr Calc Pharmacy 79.5; Estimated Glomerular Filt Rate > 60; Glucose Fasting 114 mg/dL (60-99); Potassium 4.3 mmol/L (3.3-5.1); Sodium 139 mmol/L (135-145)
[2023-05-13] MEDS: oxyCODONE HCl Immed Release 5 MG TABLET PO ×3 (06:18→20:50)
[2023-05-13] MEDS: Acetaminophen 325 MG TABLET 650 MG PO (06:18)
[2023-05-13 07:25] LABS: Glucose, Whole Blood 115 mg/dL (60-115)
[2023-05-13] MEDS: Docusate Sodium 100 MG CAPSULE PO ×2 (07:41→20:49)
[2023-05-13] MEDS: Celecoxib 200 MG CAPSULE PO ×2 (07:41→20:50)
[2023-05-13] MEDS: oxyCODONE HCl ER 10 MG TAB.ER.12H PO ×2 (07:41→20:50)
[2023-05-13] MEDS: Sennosides 8.6 MG TABLET PO (07:42)
[2023-05-13] MEDS: polyethylene glycoL 3350 17 GM POWD.PACK PO ×2 (07:43→20:49)
--- NOTE | 2023-05-13 07:50 | PM.PNORT ---
Subjective Subjective Date of Service: 05/13/23 Interval history: POD1 s/p LTHA and ORIF of the greater troch Patient is resting in bed comfortably No overnight events Pain is managed No additional complaints Physical Exam Vital Signs: Vital Signs: Last Vital Signs Temp 97.2 F 05/13/23 07:29 Pulse 73 05/13/23 07:29 Resp 16 05/13/23 07:29 BP 102/53 L 05/13/23 07:29 Pulse Ox 99 05/13/23 07:29 O2 Del Method Nasal Cannula 05/13/23 07:29 O2 Flow Rate 2.5 05/13/23 07:29 BMI result Body Mass Index 33.8 Const: General: cooperative, healthy appearing and no acute distress Resp: Effort & Inspection: normal respiratory effort and able to speak in complete sentences Cardio: Rate: regular rate Peripheral pulses: Peripheral pulses 2+ throughout GI: Palpation (GI): Soft to palpation Skin: Lesions: no lesions Rashes: no rashes Extrem: Other: left hip dressing is c/d/i. Able to dorsi/plantar flex. Calf is supple and nontender. Sensation intact. Pedal pulse intact. Procedures Date of Service Date of Service: 05/13/23 Progress Note: A&P Assessment and plan (1) Status post total replacement of left hip: Status: Acute Assessment and Plan: Continue pain mgmnt Begin ASA for dvt ppx begin PT/OT for LTHA with greater troch ORIF - WBAT with walker Dispo planning- Patient needs continued hospitalization for PT and pain mgmnt Time Spent With Patient Time: Total time managing care of this patient today ____ minutes. Quality Stroke Does the patient have a stroke diagnosis?: No VTE Prior VTE?: No VTE Risk Level:: Medical - moderate - high VTE Device Contraindication: N/A - Device Ordered VTE Drug Contraindication: N/A - Med Ordered
[2023-05-13] MEDS: Lactated Ringers 1,000 ML 100 ML IVCONT (09:08)
--- NOTE | 2023-05-13 09:28 | P.OP_ITS ---
Operative Note Operative Note Date of Service: 05/12/23 Narrative: Date of Service: 05/12/23 Pre-op diagnosis: left hip OA Post-op diagnosis: same Procedure: Left TESSA with Trochanteric plate fixation Implants: [place] Trident2 50 with 10 deg lipped liner [place] Accolade #4 132 deg with + 4 32 ceramic femoral head Devin Trochanteric claw plate, 100mm with 4 cerclage Surgeon: Gal Lund MD Anesthesia: GETA and local Was an Ocean Lifeguard Specialist used for this Procedure?: Yes Ocean Lifeguard Specialist: Dominic Borges Estimated blood loss (mL): 350 IV fluids (mL): 2,000 Pathology: other Condition: stable Disposition: PACU Procedure in detail: Patient was brought into the operating room and placed in the right lateral decubitus position. All bony prominences were well padded and the limb was prepped and draped in standard sterile fashion. A time-out was called to identify proper site procedure proper surgeon IV antibiotics and 1 g of transaxemic acid were administered. I began by making a curvilinear incision over the posterolateral aspect of the greater trochanter. Dissection was taken down to the tensor fascia which was incised in line with the incision and a Charnley retractor was placed. Cautery was used to maintain hemostasis. The hip was internally rotated and the external rotators were identified. The vessels were cauterized and a full-thickness capsular/external rotator layer was developed starting just proximal to the piriformis. This layer was tagged and a dull Hohmann retractor was placed underneath the neck in the hip was dislocated. A neck cut was made 1 cm proximal to the lesser trochanter and the head and neck were removed and measured 48mm on the back table. The head was deformed and eburnated. I then removed the labrum and cauterized the fovea. I started with a 44 reamer and medialized to the inner table. THere was superior bone loss but I sequentially reamed up to a size 50 and impacted a 50mm cup at 45 degrees of inclination and 25 degrees of version. I then placed a 10 deg posterior lipped liner and turned my attention to the femur. I identified the piriformis insertion and used this as a starting point for my arun cutter. The medius tendon was protected with a Hibs retractor. A Charnley awl was inserted in the canal and a curved curette used to remove the lateral bone.I therefore sequentially broached in the patient's natural version and trialed with a # 4. I had excellent posterior stability but with external rotation and extension the hip was unstable. Pre-operatively her femoral version was anteverted and so I had to broach in ~15 deg of retroversion to a size 4 and and again trialed. Now she was stable anteriorly but as I was dislocating the hip posteriorly there was a crack at the posterior aspect of the greater trochanter proximal to the calcar. The implant remained stable but, in order to insure stability of the greater trochanter a 100 mm claw plate was placed directly over the trochanter. 4 cerclage wires were placed ( 2 distal to the lesser and two proximal. I obtained an intre-operative x-ray to insure the plate was properly positioned. I was satisfied with the position and so the cerclage were tightened while the plate was directed distally. Once the cerclage were tightened I placed my final #4 implant and trialed with a + 4 and and standard 32 hyead. I was satisfied with the length and the stability of the + 4. My final implants were placed and the hip was reduced. I then irrigated copiously and p laced 1 g of local TXA. I performed a capsular closure with 2.0 fiberwire, Lilly's fascia with 0 Vicryl, subcuticular with 2-0 Vicryl and the skin with reginaldo. Patient was placed into a sterile dressing. Final AP radiographs were obtained supine and I was satisfied with the hardware position. Patient was extubated brought to the recovery room in stable condition. Complicatiion: Intra-operative fracture of the greater trochanter proximal to the calcar.
--- NOTE | 2023-05-13 10:19 | MHC.CM.PN ---
pt lives with has a ride hoe dc plan home with hvns when dcd pr pt receomendation
[2023-05-13] MEDS: Aspirin 325 MG TABLET PO ×2 (11:15→20:50)
[2023-05-13 11:38] LABS: Glucose, Whole Blood 121 mg/dL (60-115)
--- NOTE | 2023-05-13 12:40 | HO.POSTANES ---
Post Anesthesia Evaluation Post Anesthesia Evaluation Date of Service: 05/13/23 Vital Signs: Vital Signs Temp Pulse Resp BP Pulse Ox O2 Del Method O2 Flow Rate 05/13/23 09:24 96 Room Air 05/13/23 08:45 73 102/53 L 99 05/13/23 07:29 97.2 F 73 16 102/53 L 99 Nasal Cannula 2.5 05/13/23 03:28 97 F 70 16 103/56 L 98 Nasal Cannula 2 Anesthesia: General Mental Status: Awake Pain Control: Satisfactory Nausea/Vomiting: None Hydration: Adequate Anesthesia-Related Issues: No Anes. Related Issues
[2023-05-13] MEDS: HYDROmorphone HCl 0.5 MG/0.5 ML SYRINGE 0.25 MG IVPUSH (13:51)
[2023-05-13 16:40] LABS: Glucose, Whole Blood 128 mg/dL (60-115)
[2023-05-13] MEDS: 0.9 % Sodium Chloride Flush 3 ML SYRINGE IVFLUSH ×2 (17:18→20:50)
--- NOTE | 2023-05-13 18:13 | PC.NURSE ---
Pt was able to work with PT this morning, see PT note for details. Pt has gotten in to chair for breakfast, lunch, and dinner. Pt ambulating to bathroom or bed side commode depending on urgency. Pain medications given as needed, pt tolerating well.
[2023-05-13 20:42] LABS: Glucose, Whole Blood 140 mg/dL (60-115)
[2023-05-13] MEDS: Metoprolol Succinate ER 25 MG TAB.ER.24H PO (20:50)
[2023-05-14 03:14] VITALS: BP 94/58; PULSE 77; RESP 18; TEMP 36.4; O2SAT 93
[2023-05-14 06:01] LABS: MANUAL DIFF FLAG NO
[2023-05-14 06:13] LABS: Basophils Percent Auto 0.2 % (0-2); Eosinophils Absolute Auto 0.1 X10*3/uL (0.0-0.4); Eosinophils Percent Auto 0.8 % (0-4); Hematocrit 25.1 % (37.0-47.0); Hemoglobin 8.4 g/dl (12.0-16.0); Imm Gran Abs Auto 0.03 X10*3/uL (0.00-0.03); Imm Gran Pct Auto 0.5 % (0.0-0.4); Lymphocytes Absolute Auto 1.3 X10*3/uL (1.2-4.9); Lymphocytes Percent Auto 21.4 % (20-40); Mean Corpuscular HGB Conc 33.5 g/dl (31.0-35.0); Mean Corpuscular Hemoglobin 32.1 pg (27.0-33.0); Mean Corpuscular Volume 95.8 fL (80.0-98.0); Mean Platelet Volume 10.5 fL (9.4-12.3); Monocytes Absolute Auto 0.7 X10*3/uL (0.1-1.2); Monocytes Percent Auto 11.5 % (2-11); Neutrophils Percent Auto 65.6 % (45-73); Platelet Count 159 X10*3/uL (160-400); Red Blood Count 2.62 X10*6/uL (4.20-5.50); Red Cell Distribution Width 13.5 % (11.0-16.0); White Blood Count 6.2 X10*3/uL (4.8-10.8)
[2023-05-14 06:26] LABS: Anion Gap 11 (12-20); Blood Urea Nitrogen 18 mg/dL (9-16); Calcium 8.3 mg/dL (8.4-10.2); Carbon Dioxide 28 mmol/L (22-29); Chloride 105 mmol/L (96-108); Creatinine Clr Calc Pharmacy 82.5; Estimated Glomerular Filt Rate > 60; Glucose Fasting 114 mg/dL (60-99); Potassium 4.3 mmol/L (3.3-5.1); Sodium 140 mmol/L (135-145)
[2023-05-14 07:56] LABS: Glucose, Whole Blood 113 mg/dL (60-115)
[2023-05-14 07:58] VITALS: BP 94/58; PULSE 77; O2SAT 93
[2023-05-14 08:00] VITALS: BP 105/58; PULSE 72; RESP 16; TEMP 36.3; O2SAT 95
[2023-05-14] MEDS: Aspirin 325 MG TABLET PO (09:05)
[2023-05-14] MEDS: 0.9 % Sodium Chloride Flush 3 ML SYRINGE IVFLUSH (09:05)
[2023-05-14] MEDS: Docusate Sodium 100 MG CAPSULE PO (09:06)
[2023-05-14] MEDS: Sennosides 8.6 MG TABLET PO (09:06)
[2023-05-14] MEDS: polyethylene glycoL 3350 17 GM POWD.PACK PO (09:06)
[2023-05-14] MEDS: Celecoxib 200 MG CAPSULE PO (09:06)
[2023-05-14] MEDS: oxyCODONE HCl ER 10 MG TAB.ER.12H PO (09:06)
[2023-05-14] MEDS: 0.9 % Sodium Chloride 1,000 ML 999 ML IV (09:18)
[2023-05-14 09:53] LABS: Hematocrit 25.9 % (37.0-47.0); Hemoglobin 8.6 g/dl (12.0-16.0)
--- NOTE | 2023-05-14 10:43 | P.DS_ITS ---
DS: Providers Provider Date of Service: 05/14/23 Date of admission: 05/12/23 05:55 Primary care physician: Rosy Vicente MD Consults: 05/12/23 14:02 Consult to Hospitalist Routine Comment: Consulting Provider: Hospitalist Reason For Exam: diabetes, htn DS: Diagnosis Discharge Diagnosis (1) Status post total replacement of left hip: Status: Acute DS: Summary Hospital Course Hospital Course: .The patient underwent a Left total hip arthroplasty with ORIF greater trochanter on 05/12/23, was transferred to PACU and then to the floor to recover. During their stay, their vitals were stable, afebrile at 97.4 . Labs were unremarkable, H/H 8.6/25.9. POD 1 he was started on ASA a day for DVT ppx, they also received Physical Therapy services twice a day. Physical therapy should include gait training, core and lumbar strength, glute strength. Posterior precautions intact. WBAT with a walker Prior to discharge, her dressing was changed, incision clean dry and intact, new Aquacel dressing applied. The Aquacel dressing should remain intact and dry at all times. Any concerns with the dressing, please contact orthopedic office. No showering. The plan is to be discharged home with [facility]NA Time Attestation Discharge Coordination Time (in mins): 30 Quality: Safe Use of Opioids Does Pt have an Active Cancer Diagnosis on the Problem List?: No Quality: Stroke Does the patient have a stroke diagnosis?: No Physical Exam Vital Signs: Vital Signs: Last Vital Signs Temp 97.4 F 05/14/23 08:00 Pulse 72 05/14/23 08:00 Resp 16 05/14/23 08:00 BP 105/58 L 05/14/23 08:00 Pulse Ox 95 05/14/23 08:00 O2 Del Method Room Air 05/14/23 08:00 O2 Flow Rate 2.5 05/13/23 07:29 BMI result Body Mass Index 33.8 DS: Data Data Completed and Pending Pending studies at discharge: Pending at discharge 05/12/23 11:25 Surgical [PTH] Routine Labs on day of discharge: Laboratory Results - last 24 hr 05/13/23 05/13/23 05/13/23 11:12 16:21 20:38 WBC RBC Hgb Hct MCV MCH MCHC RDW Plt Count MPV Immature Gran % (Auto) Neut % (Auto) Lymph % (Auto) [place] % (Auto) Eos % (Auto) Baso % (Auto) Lymph # (Auto) [place] # (Auto) Eos # (Auto) Baso # (Auto) Abs Immat Gran (auto) Absolute Neuts (auto) Absolute Nucleated RBC Nucleated RBC % (auto) Sodium Potassium Chloride Carbon Dioxide Anion Gap BUN Creatinine Estim Creat Clear Calc Estimated GFR POC Glucose 121 H 128 H 140 H Fasting Glucose Calcium 05/14/23 05/14/23 05/14/23 05:11 07:39 09:44 WBC 6.2 RBC 2.62 L Hgb 8.4 L 8.6 L Hct 25.1 L 25.9 L MCV 95.8 MCH 32.1 MCHC 33.5 RDW 13.5 Plt Count 159 L MPV 10.5 Immature Gran % (Auto) 0.5 H Neut % (Auto) 65.6 Lymph % (Auto) 21.4 [place] % (Auto) 11.5 H Eos % (Auto) 0.8 Baso % (Auto) 0.2 Lymph # (Auto) 1.3 [place] # (Auto) 0.7 Eos # (Auto) 0.1 Baso # (Auto) 0.0 Abs Immat Gran (auto) 0.03 Absolute Neuts (auto) 4.0 Absolute Nucleated RBC 0.000 Nucleated RBC % (auto) 0.0 Sodium 140 Potassium 4.3 Chloride 105 Carbon Dioxide 28 Anion Gap 11 L BUN 18 H Creatinine 0.80 Estim Creat Clear Calc 82.5 Estimated GFR > 60 POC Glucose 113 Fasting Glucose 114 H Calcium 8.3 L Discharge Plan Discharge Anticipated Discharge Date/Time: 05/13/23 15:06 Patient Disposition: Home Health Service Discharge Diagnosis: s/p LTHA Referrals: Dominic Borges PA-C [Physician Head Filter Tank Tender Helper] - 05/28/23 1:00 pm Discharge Medications: New docusate sodium 100 mg Capsule 100 mg PO BID 14 Days Qty: 28 0RF celecoxib 200 mg Capsule 200 mg PO BID 30 Days Qty: 60 0RF aspirin 325 mg Tablet 325 mg PO BID 30 Days Qty: 60 0RF oxycodone 5 mg Tablet 5 mg PO Q4H PRN (Reason: Pain, Moderate(Pain Scale 4-6)) 7 Days Qty: 42 0RF Rx Instructions: Partial Fill upon patient request. acetaminophen 325 mg Tablet 650 mg PO Q6H PRN (Reason: Pain, Mild (Pain Scale 1-3)) 30 Days Qty: 240 0RF Continued (DME) lancets [FreeStyle Lancets] 28 gauge misc See Rx Instructions .Route Qty: 100 2RF Rx Instructions: Check fasting glucose once a day (DME) FreeStyle Lite Strips Strip See Rx Instructions .Route Qty: 100 1RF Rx Instructions: Check fasting blood sugar once a day metformin 1,000 mg tablet extended release 24 hr 1,000 mg PO QPM Qty: 90 0RF metoprolol succinate 25 mg tablet extended release 24 hr 25 mg PO BEDTIME rosuvastatin 5 mg tablet 5 mg PO BEDTIME metronidazole [Metrogel] 1 % gel See Rx Instructions topical DAILY PRN (Reason: Rash) Rx Instructions: apply sparingly to cheeks topical daily; (DME) blood-glucose meter [FreeStyle Lite Meter] Kit See Rx Instructions .Route Qty: 1 0RF Rx Instructions: Check blood sugar as directed once a day before a meal cholecalciferol (vitamin D3) 125 mcg (5,000 unit) capsule 125 mcg PO BEDTIME Discharge Orders: Discharge Order (Routine); Ordered 05/14/23 Ordered By: Dominic Borges Diet: Advance to usual diet Activity on Discharge: Use cane or walker Stand Alone Forms: Patient Portal Discharge page Care Plan Goals: restore fxn to left hip Health Concerns: none Plan of Treatment: Physical Therapy for total hip arthroplasty with ORIF greater troch: posterior precautions, gait training, ROM, strength--WBAT WITH WALKER Limit stair climbing No showering, no tub bath-keep dressing clean, dry and intact No driving x6 weeks Continue Aspirin x 6 weeks [place] [facility] [place] [place] Assessment: stable for discharge
--- NOTE | 2023-05-14 10:46 | W.MHC.F2F ---
Service Date Service Date: 05/14/23 Encounter Date of encounter: 05/14/23 Reasons for Services Signs and symptoms assessed: Weakness, poor balance, poor gait mechanics Reason for physical therapy: home safety and mobility, therapeutic exercises, restore joint function, gait/transfer training, ADL training and energy conservation Reason for occupational therapy: home safety and mobility, therapeutic exercises, restore joint function, gait/transfer training, ADL training and energy conservation Homebound: Leaving the home is medically contraindicated at this time without the asist of a device and/or another person due th the listed conditions above and below. Reason homebound: unsteady gait / fall risk and poor balance / fall risk Homebound supporting statement: Pt. is considered home bound due to recent surgery. Unable to drive, poor balance, poor gait mechanics. Certification: Based on the above findings, I certify that this patient is confined to the home and needs intermittent senior living care, physical therapy and/or speech therapy, or continues to need occupational therapy. The patient is under my care, and I have initiated the establishment of the plan of care. The patient will be followed by a physician who will periodically review the plan of care. Time Spent With Patient Time: Total time managing care of this patient today ____ minutes.
--- NOTE | 2023-05-14 11:29 | MHC.CM.PN ---
DP: PT HAS BEEN MEDICALLY CLEARED FOR DC HOME WITH NEW VNA VIA [facility]. PT IS AWARE THAT THEY WILL DO SOC ON THURSDAY AND WAS GIVEN REMINDERS ON EXERCISES AND PRECAUTIONS. PA UPDATED. ALL PARTIES AGREEABLE TO PLAN. [facility] WILL TRANSPORT HOME.
[2023-05-14 11:53] LABS: Glucose, Whole Blood 103 mg/dL (60-115)
[2023-05-14] MEDS: oxyCODONE HCl Immed Release 5 MG TABLET PO (12:11)
== END 2023-05-14 14:16 | disposition home health service (06) | DRG 470 ==
LOC: HO.SSSA 12:07 → HO.S3 13:14
PROVIDERS: Physician Assistant; Admitting Provider Orthopaedic Surgery; PCP Internal Medicine; Visit Provider Orthopaedic Surgery
PROC: 0SRB03A Replacement of Left Hip Joint with Ceramic Synthetic Substitute, Uncemented, Open Approach (ICD-10-PCS; CPT 27130; principal; 2023-05-12 07:30)
DX: M16.12 Unilateral primary osteoarthritis, left hip (principal); E11.40 Type 2 diabetes mellitus with diabetic neuropathy, unspecified; G47.33 Obstructive sleep apnea (adult) (pediatric); E66.9 Obesity, unspecified; Z68.33 Body mass index [BMI] 33.0-33.9, adult; Z91.041 Radiographic dye allergy status; Z79.84 Long term (current) use of oral hypoglycemic drugs; Z79.899 Other long term (current) drug therapy
CPT/HCPCS: 36415; 72170; 80048; 82947; 85014; 85018; 85025; 86850; 86900; 86901; 87640; 87641; 88304; 88311; 97110; 97116; 97162; 97166; 97530; 97535; C1713; C1776; J0131; J0690; J1100; J1170; J1885; J2405; J2704; J2795; J3010; J7120

== ENCOUNTER → 2023-05-12 05:55 | Outpatient (BNV) | payer OTHER, SELFPAY | PROVIDERS: Admitting Provider Orthopaedic Surgery; PCP Internal Medicine; Visit Provider Orthopaedic Surgery | DX: Z47.1 Aftercare following joint replacement surgery (principal); Z96.642 Presence of left artificial hip joint | CPT/HCPCS: 27130; 99024; G0180 ==

== ENCOUNTER → 2023-05-12 05:55 | Outpatient (BNV) | payer OTHER, SELFPAY | PROVIDERS: Admitting Provider Orthopaedic Surgery; PCP Internal Medicine; Visit Provider Nurse Practitioner Acute Care | DX: G47.33 Obstructive sleep apnea (adult) (pediatric) (principal); G56.23 Lesion of ulnar nerve, bilateral upper limbs | CPT/HCPCS: 99222 ==

== ENCOUNTER 2023-05-28 06:34 | Outpatient (REF) | payer OTHER, SELFPAY ==
--- NOTE | ~2023-05-28 | XR_ITS ---
EXAMINATION: XR HIP, LEFT CLINICAL INFORMATION: Pain. COMPARISON: Pelvic radiographs dated 05/12/2023. TECHNIQUE: AP view of the left hip are submitted, together with an AP view of the pelvis. FINDINGS: Prosthetic components of the left total hip arthroplasty are appropriately aligned without periprosthetic fracture or abnormal lucency. An adjacent fixator plate and cerclage wires remain stable in position. No component migration. No unusual degenerative change is seen of the right hip. Soft tissues are normal. There are lateral skin reginaldo. Multiple pelvic phleboliths are noted. XR/XR hip LT min 2V IMPRESSION: Normal postoperative appearance of the left total hip prosthesis.
== END 2023-05-28 06:35 | disposition home or self-care (01) ==
LOC: HO.HOSX 06:34
PROVIDERS: Visit Provider Physician Assistant
DX: Z47.1 Aftercare following joint replacement surgery (principal); Z96.642 Presence of left artificial hip joint
CPT/HCPCS: 73502; 99212

== ENCOUNTER 2023-05-28 08:25 | Outpatient (RCR) | payer OTHER, SELFPAY | END 2023-07-14 07:08 | disposition home or self-care (01) | LOC: HO.PT 08:25 | PROVIDERS: PCP Nurse Practitioner Family; Visit Provider Physician Assistant | DX: Z96.642 Presence of left artificial hip joint (principal) ==

== ENCOUNTER 2023-05-28 12:37 | Outpatient (AMB) | payer OTHER, SELFPAY ==
--- NOTE | 2023-05-28 06:35 | A.OFFVIS_ITS ---
Intake Intake Visit Reasons: PO LT TESSA 05/12/23 NE Intake Note: Olive a 63 year old female presents today for a post operative left TESSA on 05/12/23 NE. Allergies Iodinated Contrast Media [IV Contrast Dye] Allergy (Mild, Verified 05/28/23 12:42) Itching HPI PO LT TESSA 05/12/23 NE HPI Details 63-year-old female who returns to the [facility] today for post-op left TESSA, 05/12/[address] Lund. She continues to have mild discomfort in her hip however she is doing well overall. She has no other concerns today. [facility] Medical History EVER (obstructive sleep apnea) Degenerative joint disease of left hip Bilateral carpal tunnel syndrome Witnessed apneic spells Excessive daytime sleepiness Osteopenia of multiple sites Numbness and tingling in both hands Paresthesia of both feet Numbness of fingers of both hands Lesion of skin of nose Hammertoes of both feet Tinea unguium Degenerative joint disease of both hips Hip pain Diabetes mellitus, without long-term current use of insulin Acquired deformity of toenail Diabetic neuropathy Supraventricular tachycardia Tubular adenoma of colon Hyperlipidemia Basal cell carcinoma Rosacea Surgical History H/O basal cell carcinoma excision (~01/2023) History of carpal tunnel release (12/08/22) History of colonoscopy History of excision of lesion History of basal cell carcinoma excision Family History Father Diabetes mellitus HTN (hypertension) CVD (cardiovascular disease) Myocardial infarction Mother Throat cancer Cancer Maternal Grandfather No problems noted. Maternal Grandmother No problems noted. Paternal Grandfather No problems noted. Paternal Grandmother No problems noted. 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 No erythema or drainage. She has mild discomfort with hip flexion. No pain with ROM of hip. Calf supple, nontender. NVI. Results Reviewed Results Reviewed: Brief Operative Note Date of Service: 05/12/23 Pre-op diagnosis: left hip OA Post-op diagnosis: same Procedure: Left TESSA with Trochanteric plate fixation Implants: [place] Trident2 50 with 10 deg lipped liner [place] Accolade #4 132 deg with + 4 32 ceramic femoral head [place] Trochanteric claw plate, 100mm with 4 cerclage Surgeon: Gal Lund MD Assessment & Plan Assessment & Plan (1) Status post total replacement of left hip: Code(s): Z96.642 - Presence of left artificial hip joint Plan [place] removed, steri strips applied. She will begin to transition to Outpatient PT once she has been DC from Home PT to continue working on Gait training, ROM and quad strength. No driving for another 4 weeks. She will require ppx abx for dental procedures. She will f/u in 4 weeks, sooner if needed. Medications: Refilled docusate sodium 100 mg PO BID 28 caps 3RF 14 days oxycodone Partial Fill upon patient request. 5 mg PO Q4H PRN 42 tabs 0RF Pain, Moderate(Pain Scale 4-6) 7 days Patient Instructions: Scribed for Dominic Borges PA-C, by Freddy Reilly medical anthropologist, on 05/28/2023 at 1:00 PM EST. I, Dominic Borges PA-C, have personally reviewed and agree with the information entered by the scribe. Coding Level of Care Code Global (94749) Diagnoses Status post total replacement of left hip Z96.642
== END 2023-05-28 13:43 | disposition home or self-care (01) ==
PROVIDERS: PCP Internal Medicine; Visit Provider Physician Assistant
DX: Z96.642 Presence of left artificial hip joint (principal)
CPT/HCPCS: 99024

== ENCOUNTER 2023-06-25 11:43 | Outpatient (REF) | payer OTHER, SELFPAY ==
--- NOTE | ~2023-06-25 | XR_ITS ---
EXAMINATION: XR PELVIS CLINICAL INFORMATION: Hip pain COMPARISON: X-ray pelvis on 05/28/2023 TECHNIQUE: AP view of the pelvis. FINDINGS: BONES: Bony structures are intact. There is no focal bone destruction or periosteal reaction seen. Left total hip arthroplasty prostheses, left proximal femoral shaft fixation plate, greater trochanteric and subtrochanteric cerclage wire loops are present. JOINTS: There is normal alignment of left total hip arthroplasty prostheses. SOFT TISSUE: Soft tissue is normal. No abnormal air collection is seen. XR/XR pelvis 1-2V IMPRESSION: 1. Unchanged no pelvic fracture or dislocation. 2. Unchanged normal alignment of Left total hip arthroplasty prostheses, left proximal femoral shaft fixation plate, greater trochanteric and subtrochanteric cerclage wire loops.
== END 2023-06-25 11:44 | disposition home or self-care (01) ==
LOC: HO.HOSX 11:43
PROVIDERS: Visit Provider Orthopaedic Surgery
DX: Z96.642 Presence of left artificial hip joint (principal)
CPT/HCPCS: 72170; 99212

== ENCOUNTER 2023-06-25 11:54 | Outpatient (AMB) | payer OTHER, SELFPAY ==
--- NOTE | 2023-06-25 12:14 | MHC.OFFVIS ---
Intake Visit Reasons: 6 wk PO LT TESSA 05/12/23 NE Intake Note: Olive is a 63 year old female who presents today for a post operative appointment s/p Left TESSA 05/12/23. Patient reports that she is doing well with no concerns of the left hip. Paient reports recent Carpal Tunnel surgery on the right hand which has not helped. She has concerns of numbness and tingling of the left hand as well . Allergies Iodinated Contrast Media [IV Contrast Dye] Allergy (Mild, Verified 06/25/23 12:19) Itching HPI HPI 6 wk PO LT TESSA 05/12/23 NE: Details: Olive is a 63 year old female who presents today for a post operative appointment s/p Left TESSA 05/12/23. No complaints. [facility] Medical History EVER (obstructive sleep apnea) Cubital tunnel syndrome, bilateral EVER (obstructive sleep apnea) Degenerative joint disease of left hip Bilateral carpal tunnel syndrome Witnessed apneic spells Excessive daytime sleepiness Osteopenia of multiple sites Numbness and tingling in both hands Paresthesia of both feet Numbness of fingers of both hands Lesion of skin of nose Hammertoes of both feet Tinea unguium Degenerative joint disease of both hips Hip pain Diabetes mellitus, without long-term current use of insulin Acquired deformity of toenail Diabetic neuropathy Supraventricular tachycardia Tubular adenoma of colon Hyperlipidemia Basal cell carcinoma Rosacea Surgical History H/O basal cell carcinoma excision (~01/2023) History of carpal tunnel release (12/08/22) History of colonoscopy History of excision of lesion History of basal cell carcinoma excision Family History Father Diabetes mellitus HTN (hypertension) CVD (cardiovascular disease) Myocardial infarction Mother Throat cancer Cancer Maternal Grandfather No problems noted. Maternal Grandmother No problems noted. Paternal Grandfather No problems noted. Paternal Grandmother No problems noted. 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 Left TESSA in expected post operative position with no hardware complications or evidence of loosening. There is a trocahnteric claw plate in position unchanged from prior with evidence of healing of small trochanteric fracture. Assessment & Plan Assessment & Plan (1) Status post total replacement of left hip: Code(s): Z96.642 - Presence of left artificial hip joint Category: Surgical Plan: Doing well May d/c ASA Cont PT and posterior hip precautions f/u 6 weeks Orders: Orders XR pelvis 1-2V 06/25/23 M25.559 - Pain in unspecified hip Coding Level of Care Code Global (74889) Diagnoses Status post total replacement of left hip Z96.642
== END 2023-06-25 12:48 | disposition home or self-care (01) ==
PROVIDERS: PCP Internal Medicine; Visit Provider Orthopaedic Surgery
DX: Z96.642 Presence of left artificial hip joint (principal)
CPT/HCPCS: 99024

== ENCOUNTER 2023-09-14 09:42 | Outpatient (REF) | payer OTHER, SELFPAY ==
--- NOTE | ~2023-09-14 | XR_ITS ---
EXAMINATION: XR PELVIS CLINICAL INFORMATION: Pain in unspecified hip COMPARISON: 06/25/2023 TECHNIQUE: AP view of the pelvis. FINDINGS: Left hip prosthesis with cerclage wires in place. Alignment appears grossly normal on single view. No displaced pelvic fracture. Moderate degenerative change in the right hip. XR/XR pelvis 1-2V IMPRESSION: Left hip prosthesis in place. No displaced fracture.
== END 2023-09-14 09:43 | disposition home or self-care (01) ==
LOC: HO.HOSX 09:42
PROVIDERS: PCP Nurse Practitioner Family; Visit Provider Orthopaedic Surgery
DX: Z96.642 Presence of left artificial hip joint (principal)
CPT/HCPCS: 72170; 99212

== ENCOUNTER 2023-09-14 09:42 | Outpatient (AMB) | payer OTHER, SELFPAY ==
--- NOTE | 2023-09-14 09:45 | A.OFFVIS_ITS ---
Intake Visit Reasons: OV-LT TESSA 05/12/23 NE-follow up Intake Note: Olive is a 63 year old female who presents today for a follow up of her left hip s/p Left TESSA 05/12/23. Patient reports that she is still feeling some tenderness at the incision site and is wondering if this is normal. Patient rpeorts that she does have pain with prolonged standing, walking or stairs. Allergies Iodinated Contrast Media [IV Contrast Dye] Allergy (Mild, Verified 06/25/23 12:19) Itching HPI HPI OV-LT TESSA 05/12/23 NE-follow up: Details: Olive is progressing with her left hip. She complains mostly of back pain and has not yet started with regular outpatient PT. [facility] Medical History EVER (obstructive sleep apnea) Cubital tunnel syndrome, bilateral EVER (obstructive sleep apnea) Degenerative joint disease of left hip Bilateral carpal tunnel syndrome Witnessed apneic spells Excessive daytime sleepiness Osteopenia of multiple sites Numbness and tingling in both hands Paresthesia of both feet Numbness of fingers of both hands Lesion of skin of nose Hammertoes of both feet Tinea unguium Degenerative joint disease of both hips Hip pain Diabetes mellitus, without long-term current use of insulin Acquired deformity of toenail Diabetic neuropathy Supraventricular tachycardia Tubular adenoma of colon Hyperlipidemia Basal cell carcinoma Rosacea Surgical History H/O basal cell carcinoma excision (~01/2023) History of carpal tunnel release (12/08/22) History of colonoscopy History of excision of lesion History of basal cell carcinoma excision Family History Father Diabetes mellitus HTN (hypertension) CVD (cardiovascular disease) Myocardial infarction Mother Throat cancer Cancer Maternal Grandfather No problems noted. Maternal Grandmother No problems noted. Paternal Grandfather No problems noted. Paternal Grandmother No problems noted. 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 Left TESSA in expected post operative position with no hardware complications or evidence of loosening. There is a trocahnteric claw plate in position unchanged from prior with evidence of healing of small trochanteric fracture. Assessment & Plan Assessment & Plan (1) Status post total replacement of left hip: Code(s): Z96.642 - Presence of left artificial hip joint Category: Surgical Plan: Doing well PT and ambulation as tolerated Follow up in 3 months. Orders: Orders PT Evaluation and Treatment Today Z96.642 - Presence of left artificial hip joint XR pelvis 1-2V Today M25.559 - Pain in unspecified hip Coding Level of Care Code Est Pt Level 3 (11096) Diagnoses Status post total replacement of left hip Z96.642
== END 2023-09-14 10:29 | disposition home or self-care (01) ==
PROVIDERS: PCP Nurse Practitioner Family; Visit Provider Orthopaedic Surgery
DX: Z47.1 Aftercare following joint replacement surgery (principal); Z96.642 Presence of left artificial hip joint
CPT/HCPCS: 99213

== ENCOUNTER 2023-12-14 08:31 | Outpatient (REF) | payer OTHER, SELFPAY | END 2023-12-14 08:32 | disposition home or self-care (01) | LOC: HO.HOSX 08:31 | PROVIDERS: PCP Nurse Practitioner Family; Visit Provider Orthopaedic Surgery | DX: M25.552 Pain in left hip (principal); Z96.642 Presence of left artificial hip joint | CPT/HCPCS: 72170; 99212 ==

== ENCOUNTER 2023-12-14 08:31 | Outpatient (AMB) | payer OTHER, SELFPAY ==
--- NOTE | 2023-12-14 08:34 | MHC.OFFVIS ---
Vital Signs 12/14/23 08:37 Height 5 ft 6 in Weight 225 lb BMI 36.3 Intake Visit Reasons: OV-LT TESSA 05/12/23 NE-follow up Intake Note: Olive is a 63 year old female who presents today for a follow up of her left hip s/p Left TESSA 05/12/23. Patient reports that she is having some increased pain. Patient reports that she took a fall on Thursday12/11/23 while at work. She explains that she is sore all over and tweaked her knee. She explained that even prior to the fall she has been feeling swollen all over . She also describes a burning pain in the left lower back and down the lateral aspect of the hip and leg. XR updated today in office Allergies Iodinated Contrast Media [IV Contrast Dye] Allergy (Mild, Verified 12/14/23 08:34) Itching HPI HPI OV-LT TESSA 05/12/23 NE-follow up: Details: Olive is a 63 year old female who presents today for a follow up of her left hip s/p Left TESSA 05/12/23. Patient reports that she is having some increased pain. Patient reports that she took a fall on Thursday12/11/23 while at work. She explains that she is sore all over and tweaked her knee. She explained that even prior to the fall she has been feeling swollen all over . She also describes a burning pain in the left lower back and down the lateral aspect of the hip and leg. [facility]LY [facility] Medical History EVER (obstructive sleep apnea) Cubital tunnel syndrome, bilateral EVER (obstructive sleep apnea) Degenerative joint disease of left hip Bilateral carpal tunnel syndrome Witnessed apneic spells Excessive daytime sleepiness Osteopenia of multiple sites Numbness and tingling in both hands Paresthesia of both feet Numbness of fingers of both hands Lesion of skin of nose Hammertoes of both feet Tinea unguium Degenerative joint disease of both hips Hip pain Diabetes mellitus, without long-term current use of insulin Acquired deformity of toenail Diabetic neuropathy Supraventricular tachycardia Tubular adenoma of colon Hyperlipidemia Basal cell carcinoma Rosacea Surgical History H/O basal cell carcinoma excision (~01/2023) History of carpal tunnel release (12/08/22) History of colonoscopy History of excision of lesion History of basal cell carcinoma excision Family History Father Diabetes mellitus HTN (hypertension) CVD (cardiovascular disease) Myocardial infarction Mother Throat cancer Cancer Maternal Grandfather No problems noted. Maternal Grandmother No problems noted. Paternal Grandfather No problems noted. Paternal Grandmother No problems noted. 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 No groin pain with hip range of motion Results Reviewed Results Reviewed: I personally reviewed relevant radiographs. No change in hardware position with healed fracture and hip replacement in expected postoperative alignment Assessment & Plan Assessment & Plan (1) Status post total replacement of left hip: Code(s): Z96.642 - Presence of left artificial hip joint Category: Surgical Plan: Olive has still not yet got into outpatient physical therapy. Her gait mechanics are very poor and I recommend therapy. She states she has an appointment in the next couple of weeks but does not want to go anywhere else. Her hip appears to be healed and she has no limitations. I would like to see her back in 6 weeks after she has done therapy for proximally 4 weeks. Orders: Orders XR pelvis 1-2V Today M25.559 - Pain in unspecified hip Coding Level of Care Code Est Pt Level 3 (43880) Diagnoses Status post total replacement of left hip Z96.642
[2023-12-14 08:37] VITALS: BMI 36.3
== END 2023-12-14 09:15 | disposition home or self-care (01) ==
PROVIDERS: PCP Nurse Practitioner Family; Visit Provider Orthopaedic Surgery
DX: Z47.1 Aftercare following joint replacement surgery (principal); Z96.642 Presence of left artificial hip joint
CPT/HCPCS: 99212

== ENCOUNTER 2024-01-29 09:22 | Outpatient (AMB) | payer OTHER, SELFPAY ==
[2024-01-29 09:24] VITALS: BMI 36.3
--- NOTE | 2024-01-29 09:24 | A.OFFVIS_ITS ---
Vital Signs 01/29/24 09:24 Height 5 ft 6 in Weight 225 lb BMI 36.3 Intake Visit Reasons: OV-LT TESSA 05/12/23 NE-follow up Intake Note: Olive is a 63 year old female who presents today for a follow up of her left hip s/p Left TESSA 05/12/23. Fall on 12/11/23 caused increased pain in the right knee. At her last visit she had still not started outpatient PT and had very poor gait mechanics. Today she presents to follow up after starting therapy. Pt states PT is helping her. Allergies Iodinated Contrast Media [IV Contrast Dye] Allergy (Mild, Verified 01/29/24 09:24) Itching HPI HPI OV-LT TESSA 05/12/23 NE-follow up: Details: Olive is a 63 year old female who presents today for a follow up of her left hip s/p Left TESSA 05/12/23. Fall on 12/11/23 caused increased pain in the right knee. At her last visit she had still not started outpatient PT and had very poor gait mechanics. Today she presents to follow up after starting therapy. Pt states PT is helping her. [facility] Medical History EVER (obstructive sleep apnea) Cubital tunnel syndrome, bilateral EVER (obstructive sleep apnea) Degenerative joint disease of left hip Bilateral carpal tunnel syndrome Witnessed apneic spells Excessive daytime sleepiness Osteopenia of multiple sites Numbness and tingling in both hands Paresthesia of both feet Numbness of fingers of both hands Lesion of skin of nose Hammertoes of both feet Tinea unguium Degenerative joint disease of both hips Hip pain Diabetes mellitus, without long-term current use of insulin Acquired deformity of toenail Diabetic neuropathy Supraventricular tachycardia Tubular adenoma of colon Hyperlipidemia Basal cell carcinoma Rosacea Surgical History (Updated 01/26/24 @ 11:33 by Jana Chang CMA) Status post total replacement of left hip (05/12/23) H/O basal cell carcinoma excision (~01/2023) History of carpal tunnel release (12/08/22) History of colonoscopy History of excision of lesion History of basal cell carcinoma excision Family History Father Diabetes mellitus HTN (hypertension) CVD (cardiovascular disease) Myocardial infarction Mother Throat cancer Cancer Maternal Grandfather No problems noted. Maternal Grandmother No problems noted. Paternal Grandfather No problems noted. Paternal Grandmother No problems noted. 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 Trendelenburg gait improvement compared to prior. Assessment & Plan Assessment & Plan (1) Status post total replacement of left hip: Onset Date: 05/12/23 Code(s): Z96.642 - Presence of left artificial hip joint Category: Surgical Plan: Left TESSA complicated by intraoperative fracture of the greater trochanter treated with claw plate fixation. She was restricted to limited weight-bearing for 3 months and has been slow to improve but is improving gradually. I would like to see her back in 6-8 weeks. Continue PT. Coding Level of Care Code Est Pt Level 3 (67071) Diagnoses Status post total replacement of left hip Z96.642
--- OUTSIDE RECORDS SUMMARY | 2024-02-03 06:54 | XMS_ITS ---
[facility] Address [address] [place] [address] Care Team Providers Care Telegraphic Typewriter Mechanic Name Role Phone Meño BECK, Eduardo Primary Care Provider UnavailSera Moody Unavailable [phone] Cinthia BECK, Rosy Snell Unavailable Unavaila ble Encounters Encounter Location Date Provider Diagnosis [address] [address] 10/05/2023 Sera Saez Plan Of Treatment No Information Progress Notes * Olive GARNETTDOB:1960 (64 yo F)Acc No.[id number]:10/05/2023 Progress Note Patient:Olive CRUZ Provider:Shante Saez DPM :1960???Age:63 Y???Sex:Female D ate:10/05/2023 Address:[address] [place], [place] [id number] Pcp:Eduardo Wilder MD Subjective: * Chief Complaints: * ??? * Medical History:? Objective: * Vitals:? Assessment: Plan: * Treatment: * Images: * The named appointment provid er may or may not be the originator of this progress note, and it is not deemed complete until electronically signed by the appointment provider. Sign off status: Pending * Provider:Shante Saez DPM Date:?2023 Generated for Doriani yifan/Faroe/eTransmitting on:?02/03/2024 06:54 AM EST
--- OUTSIDE RECORDS SUMMARY | 2024-02-03 06:54 | XMS_ITS ---
Author Organization [facility] Address [address] [place] [address] Care Team Providers Care Asbestos Removal Supervisor Name Role Phone Meño BECK, Eduardo Primary Care Provider UnavailSera Moody Unavailable [phone] Cinthia BECK, Rosy Snell Unavailable Unavaila ble REASON FOR VISIT cx 10/04 Encounters Encounter Location Date Provider Diagnosis [facility] [address] [place] [address] 09/24/2023 Sera Saez Plan Of Treatment No Information Progress Notes * TAMIROlive CHAMBERLAINDOB:1960 (63 yo F)Acc No.[id number]:09/24/2023 Patient:?Olive Henry :1960???Age:63 Y???Sex:Female Address:[address] [place] [address], [address] * true * Date:? Generated for Martha saha/Arnav/eTransmitting on:?02/03/2024 06:54 AM EST
--- OUTSIDE RECORDS SUMMARY | 2024-02-03 06:54 | XMS_ITS | Patient Health Record ---
[facility] Address [address] [place] [address] Care Team Providers Care Ribbon Tier Name Role Phone Meño BECK, Eduardo Primary Care Provider Unavailabl e Sera Saez Unavailable [phone] Cinthia BECK, Rosy Snell Unavailable Unavaila ble Allergies No Known Allergies Reason For Referral No Information Medications Medication SIG (Take, Route, Frequency, Duration) Notes Start Date End Date Status Vitamin B Complex - as directed Orally Not-Taking metFORMIN HCl 500 MG 1 tablet with a ranjan l Orally Once a day for 30 day(s) Active Cholecalciferol 50 MCG (2000 UT) 1 capsule Orally Once a day for 30 day(s) vitamin D3 Active Gabapentin Not-Takin g Extra Depth Orthopedic Shoes (1 Pair) with Customized Heat Molded Multidensity Innersoles (3 Pair) as directed Dx: NIDDM/Polyneuropathy (E11.42), Hammertoe Foot Deformity (M20.41,M20.42), Preulcerative Skin Lesion(s) (L85.1 Not-Taking Tylenol Active Cephalexin 500 MG 1 capsule Orally every 12 hrs for 10 days Not-Taking LamISIL 250 MG 1 tablet Orally Once a day for 7 days stop for 3 weeks repeat cycle for 90 days 10/01/2020 Not-Taking Metoprolol Succinate 25 MG 1 capsule Orally Once a day for 30 day(s) Active metroNIDAZOLE 1 % 1 application Externally Once a day Active Extra Depth Orthopedic Shoes (1 Pair) with Customized Heat Molded Multidensity Innersoles (3 Pair) as directed Dx: NIDDM/Polyneuropathy (E11.42), Hammertoe Foot Deformity (M20.41,M20.42), Preulcerative Skin Lesion(s) (L85.1 03/03/2022 Active Pravastatin Sodium 80 MG 1 tablet Orally Once a day for 30 day(s) Active Compression Stockings 20-30mm Hg 1 pair wear daily for 30 days Active Zinc Active Immunizations Vaccine Route Administration Date Status Commap nts COVID-19 Pfizer BioNTech Vaccine Unknown 06/05/2020 Administered First Dose: 05/15/20 2nd dose: 06/05/2020 Influenza Unknown 10/25/2019 Administered Influenza Unknown 10/24/2020 Administered Influenza Unknown 11/25/2021 Administered Influenza Unknown 11/24/2022 Administered Social History Tobacco Use: Social History Observation Description Date Details (start date - stop date) Never Smoker NA - NA Tobacco Use/Smoking Question Answer Notes Are you a: nonsmoker Additional Findings: Tobacco Non-User Current no n-smoker Alcohol Screen Question Answer Notes Did you have a drink containing alcohol in the p ast year? No Points 0 Interpretation Negative Tobacco use other than smoking: Question Answer Notes Are you an other tobacco user? No Problems Problem Type SNOMED Code ICD Code Onset Dates Problem Status W/U Status Risk Notes Problem Acquired hammer toe of right foot (1447962816226844 ) Other hammer toe(s) (acquired), right foot (M20.41) Active confirmed Problem Acquired hammer toe of left foot (5415960725468157 ) Other hammer toe(s) (acquired), left foot (M20.42) Active confirmed Problem Ulcer of toe (634456142) Non-pressure chronic ulcer of other part of right foot limited to breakdown of skin (L97.511) Active confirmed Problem Polyneuropathy due to type 2 diabetes mellitus (428418022) Type 2 diabetes mellitus with diabetic polyneuropathy (E11.42) Active confirmed Problem Ulcer of toe of right foot (disorder) (1485104021383096 1) Skin ulcer of toe of right foot, limited to breakdown of skin (L97.511) Active confirmed Problem Ulcer of toe of left foot (disorder) (7276124318683005 2) Skin ulcer of toe of left foot, limited to breakdown of skin (L97.521) Active confirmed Vital Signs Height 5ft 6in in 06/22/2023 Weight 220 lbs 06/22/2023 BMI 35.51 kg/m2 06/22/2023 Procedures Procedure Date Ordered Date Performed Result Body Sit e 86569-YKQMOJA NAIL, 6 OR MORE 03/23/2023 N/A 44561-KLXG SKIN LESIONS, 2 TO 4 03/23/2023 N/A 59948-FAZKFYR NAIL, 6 OR MORE 06/22/2023 N/A 89015-Nreoztxm Plate 06/22/2023 N/A 56022 I&D ABSCESS- SIMPLE,SINGLE 06/22/2023 N/A 70488-LLQH SKIN LESIONS, 2 TO 4 06/22/2023 N/A Encounters Encounter Location Date [facility] [address] 03/23/2023 Sera Saez Type 2 diabetes mellitus with diabetic polyneuropathy E11.42 and Tinea unguium B35.[address] [address] 06/22/2023 Seramarie Saez Type 2 diabetes mellitus with diabetic polyneuropathy E11.42 ; Tinea unguium B35.1 ; Abscess of toe, right L02.611 ; Ingrown nail L60.0 and Edema, lower extremity R60.[address] [address] 09/24/2023 Sera Saez Assessments Encounter Date Diagnosis (ICD Code) Assessment Notes Treatment Notes Treatment Clinical Notes Section Notes 03/23/2023 Tinea unguium (ICD-10 - B35.1) 03/23/2023 Type 2 diabetes mellitus with diabetic polyneuropathy (ICD-10 - E11.42) 06/22/2023 Type 2 diabetes mellitus with diabetic polyneuropathy (ICD-10 - E11.42) 06/22/2023 Tinea unguium (ICD-10 - B35.1) 06/22/2023 Abscess of toe, right (ICD-10 - L02.611) Patient Educated with: WOUND CARE INSTRUCTIONS. pdf (WOUND CARE INSTRUCTIONS. pdf) 06/22/2023 Ingrown nail (ICD-10 - L60.0) 06/22/2023 Edema, lower extremity (ICD-10 - R60.0) open toe Plan Of Treatment Pending Test Test Name Order Date *Liver Function Test (LFT) 09/27/2020 21744-IGDAAXO NAIL, 6 OR MORE 09/27/2020 95746-IUGTSZD NAIL, 6 OR MORE 01/07/2021 03612-OMRHVXL NAIL, 6 OR MORE 04/29/2021 46758-GKJZCSL NAIL, 6 OR MORE 08/12/2021 70572-SUJEDXO NAIL, 6 OR MORE 11/11/2021 91232-NOZCLUN NAIL, 6 OR MORE 03/03/2022 54841-RYGCWTD NAIL, 6 OR MORE 12/15/2022 00407-YNZTCLF NAIL, 6 OR MORE 03/23/2023 66830-SYVHRWF NAIL, 6 OR MORE 06/22/2023 90286-BFUYUXV NAIL, 1-5 08/04/2022 39862-Llqnuhjt Plate 06/22/2023 78617-Dbsjumnr Plate 08/12/2021 33573-Kykaqgkp Plate 08/04/2022 69647-Ndhiburj Plate 04/29/2021 27360-Jvrrwbdn Plate 01/07/2021 73073-Uextqbww Plate 09/27/2020 08490-Kzepxhzr Plate Each Additional 10220-Ctvlhbcw Plate Each Additional 01/2023 67245- Debride <25 sq cm 05/16/2021 20135 I&D ABSCESS- SIMPLE,SINGLE 022 72892 I&D ABSCESS- SIMPLE,SINGLE 022 95245 I&D ABSCESS- SIMPLE,SINGLE 021 66824 I&D ABSCESS- SIMPLE,SINGLE 023 57842 I&D ABSCESS- SIMPLE,SINGLE 024 84620-OLLN SKIN LESIONS, 2 TO 4 03/23/19 24 16473-BPRH SKIN LESIONS, 2 TO 4 06/22/19 24 Insurance Providers Payer Name Payer Address Payer Phone Subscriber Number Group Number Insured Name Patient Relationship to Insured Coverage Start Date Coverage End Date [facility] [address] [place], [place] [address], [place] [address] [id number] Olive Henry Self - patient is the insured Medical (General) History Medical History History ICD Code Sleep apnea Basal cell carcinoma Degenerative joint disease Diabetes mellitus hip pain Hyperlipidemia Rosacea Supraventricular tachycardia Diabetic neuropathy tubular adenoma of colon Arthritis Back,Hip,and Knee pain Diabetic Numbness Chicken pox Surgical History Surgery Date(Month/Year) colonoscopy basal cell carcinoma excision of lesion Carpal Tunnel Surgery - right hand 12/08 left hip surgery 05/12/23
--- OUTSIDE RECORDS SUMMARY | 2024-02-03 06:54 | XMS_ITS ---
Author Organization [facility] Address [address] [place] [address] Care Team Providers Care Semiconductor Development Technician Name Role Phone Meño BECK, Eduardo Primary Care Provider UnavailSera Moody Unavailable [phone] Cinthia BECK, Rosy Snell Unavailable Unavaila ble Allergies No Known Allergies REASON FOR VISIT At Risk Footcare, Possible Infection, Ingrown Nail, Swelling Medications Medication SIG (Take, Route, Frequency, Duration) Notes Start Date End Date Status Vitamin B Complex - as directed Orally Not-Taking Compression Stockings 20-30mm Hg 1 pair wear daily for 30 days Active Gabapentin Not-Takin g Cephalexin 500 MG 1 capsule Orally every 12 hrs for 10 days Not-Taking LamISIL 250 MG 1 tablet Orally Once a day for 7 days stop for 3 weeks repeat cycle for 90 days 10/01/2020 Not-Taking Extra Depth Orthopedic Shoes (1 Pair) with Customized Heat Molded Multidensity Innersoles (3 Pair) as directed Dx: NIDDM/Polyneuropathy (E11.42), Hammertoe Foot Deformity (M20.41,M20.42), Preulcerative Skin Lesion(s) (L85.1 Not-Taking Metoprolol Succinate 25 MG 1 capsule [...] Once a day for 30 day(s) Active metFORMIN HCl 500 MG 1 tablet with a ranjan l Orally Once a day for 30 day(s) Active Cholecalciferol 50 MCG (1999) 1 capsule Orally Once a day for 30 day(s) vitamin D3 Active Zinc Active Tylenol Active Social History Tobacco Use: Social History Observation [...] Are you an other tobacco user? No Vital Signs Height 5ft 6in in 06/22/2023 Weight 220 lbs 06/22/2023 BMI 35.51 kg/m2 06/22/2023 Procedures Procedure Date Ordered Date Performed Result Body Sit e 50764-YRWHNVU NAIL, 6 OR MORE 06/22/2023 N/A 65621-Ncnzbdtq Plate 06/22/2023 N/A 90184 I&D ABSCESS- SIMPLE,SINGLE 06/22/2023 N/A 25350-KOWJ SKIN LESIONS, 2 TO 4 06/22/2023 N/A Encounters Encounter Location Date Provider Diagnosis [facility] [address] [address] 06/22/2023 Sera Black Type 2 diabetes mellitus with diabetic polyneuropathy E11.42 ; Tinea unguium B35.1 ; Abscess of toe, right L02.611 ; Ingrown nail L60.0 and Edema, lower extremity R60.0 Assessments Encounter Date Diagnosis (ICD Code) Assessment Notes Treatment Notes Treatment Clinical Notes Section Notes 06/22/2023 Type 2 diabetes mellitus with diabetic polyneuropathy (ICD-10 - E11.42) 06/22/2023 Tinea unguium (ICD-10 - B35.1) 06/22/2023 Abscess of toe, right (ICD-10 - L02.611) Patient Educated with: WOUND CARE INSTRUCTIONS. pdf (WOUND CARE INSTRUCTIONS. pdf) 06/22/2023 Ingrown nail (ICD-10 - L60.0) 06/22/2023 Edema, lower extremity (ICD-10 - R60.0) open toe Plan Of Treatment Medication Medication Name Sig Start Date Stop Date Notes Compression Stockings 20-30mm Hg 1 pair wear daily for 30 days Treatment Notes Assessment Notes Abscess of toe, right Patient Educated w ith: WOUND CARE INSTRUCTIONS.pdf (WOUND CARE INSTRUCTIONS.pdf) Edema, lower extremity open toe Pending Test Test Name Order Date 36873-BRRTOIV NAIL, 6 OR MORE 06/22/2023 18379-Blguzeej Plate 06/22/2023 30954 I&D ABSCESS- SIMPLE,SINGLE 024 11648-VYNM SKIN LESIONS, 2 TO 4 06/22/19 24 Next Appt Details Follow Up: 2 Weeks, Reason: Procedure Notes * Category Sub-Category Detail Notes Nail Avulsion Procedure A fine sterile e levator was placed between the eponychium, nail fold, and nail plate to separate the structures. A sterile nail splitter, and/or sterile 316 blade, was then used to longitudinally section the nail along its entire length through the eponychium to the area under the nail fold. The offending portion of nail was from the nail bed with a rolling action and then removed with a hemostat. No underlying bone was identified. There was minimal bleeding as hemostasis was achieved through the temporary use of either a digital tourniquet or the aforementioned local with epinephrine. A bacitracin sterile dressing was applied. Local wound aftercare instructions were discussed and dispensed. The patient was informed of both conservative and future surgical procedures to prevent recurrence. Tylenol or Motrin was recommended for pain or discomfort (91222) Anesthesia was accomplished TOP ICALLY with Lidocaine Hydrochloride Jelly 2 percent Location Bilateral nail borde r , T5 Debride Nail 6-10 Nail debridement Nail debridem ent performed extensively to reduce/remove overall nail length and girth, subungual debris, and necrotic tissue, by manual and electrical means with use of a nail nipper and/or dremel, to more viable healthy nail plate or bed tissue 6-10. Silver nitrate used for any petechial bleeding as necessary. Patient chooses, no pharmaceutical tx (65099) I&D nail abscess Location Lateral nail rhoda rder, T6, Procedure Performed incision a nd drainage of Single Nail Abscess with use of sterile nail nipper/316 blade. Approximately ( 0.1 ) cc purulent fluid material was drained. The infected devitalized soft tissue was curettaged to healthy bleeding bed. Any affected nail portion was removed to the eponychium . Any evidence of granuloma was also removed at this time. No underlying bone was visualized. There was minimal bleeding as hemostasis was achieved through the temporary use of either a digital tournaquet or the aforementioned local with epinephrine. An application of sterile Bacitracin dressing was performed. Local wound care instructions were discussed and dispensed. Recommended Tylenol or Motrin for pain/discomfort (98720) Type Single, Abscess Anesthesia 3cc of 1 percent Lid ocaine Plain local anesthesic utilizing aseptic technique Keratoma Treatment Parring or Cutting o f Benign Hyperkeratotic Lesion(s) 30988 ( 2-4 Lesions ) - The Benign hyperkeratotic lesions, as described above were pared, and/or cut utilizing a sterile 15 blade, tissue nippers, and/or dremel Progress Notes * TAMIR DianababatundeDOB:1960 (63 yo F)Acc No.[id number]:06/22/2023 Progress Note Patient:?Tamir Olive Provider:?Sera Saez DPM :1960???Age:63 Y???Sex:Female D ate:06/22/2023 Address:[address] [place] [address] Pcp:Eduardo Wilder MD Subjective: * Chief Complaints: * ???At Risk FootcarePossible InfectionIngrown NailSwelling * HPI: ???At Risk footcare:?Pt States Last PCP Visit:?Date?05/13/2023 ???Swelling:?Location:?Both feet/leg.?Duration:?several weeks.?Course:?worse.? * ROS:?General/Constitutional:?Nausea?denies.?Vomiting?denies.?Hunger Thirst?denies.?Loss appetite?denies.?Chills?denies.?Fatigue?denies.?Fever?denies.?Night Sweats?denies.?Unexplained weight loss?denies.?Unexplained weight gain?denies.?HEENTM:?Dentures?denies.?Dizziness?denies.?Glasses/contacts?admits.?Retinopathy?de nies.?Blurred/double vision?denies.?TMJ?denies.?Discharge/drainage?denies.?Implants?denies.?Sore throat?denies.?Dental implants?denies.?Hard of hearing ?denies.?Difficulty chewing/swallowing/speaking?denies.?Nose bleeds?denies.?Sore mouth?denies.?Respiratory:?On Oxygen?denies.?Pneumonia/pleurisy?denies.?Bronchitis?denies.?Emphysema?denies.?C oughing?denies.?Cough blood?denies.?Shortness of breath?denies.?Wheezing?denies.?Cardiovascular:?Pacemaker?denies.?MVP?denies.?WPW?denies.?CHF?denies.?Heart attack?denies.?Septal defect?denies.?Rapid beat?denies.?Chest pain ?denies.?Atrial Fib.?denies.?Murmur/Palpitations?denies.?Gastrointestinal:?Hemorrhoids?denies.?Stomach/Abdominal pain?denies.?Dark blood stool?denies.?Irritable bowel ?denies.?Constipation?denies.?Diarrhea?denies.?Hematology:?Swelling?admits.?Clots?denies.?Varicose Veins?denies.?Bruising?denies.?Bleeding problem?denies.?Genitourinary:?Blood urine?denies.?Frequent/Painfu/urination/bladder control?denies.?Kidney stones?denies.?Infection (UTI)?denies.?Nephropathy?denies.?sex trans dis (STD)?denies.?Prostate?denies.?Musculoskeletal:?Hammertoes?denies.?Bunions?denies.?Back Pain?admits.?Muscle Cramps/ Resting?denies.?Muscle cramps / walking?denies.?Generalized aches and pains?admits.?Weakness?denies.?Integ.:?Leigh?denies.?Scars?denies.?Corns/calluses?denies.?Ingrown nails?admits.?Painful nails?admits.?Open Sores?denies.?Rashes?denies.?Neurologic:?Difficulty sleeping?denies.?Brain disorder?denies.?Numbness?denies.?Balance trouble?denies.?Confusion?denies.?Fainting/blackouts?denies.?Tingling?denies.?Tr emors?denies.? * Medical History:? * Surgical History:?colonoscop y basal cell carcinoma excision of lesion Carpal Tunnel Surgery - right hand 12/08/22left hip surgery 05/12/23 * Hospitalization/Major Diagno stic Procedure:?Denies Past Hospitalization * Family History:?Mother: dece ased, diagnosed with Other malignant neoplasm of unspecified site.?Father: , cardiovascular disease, myocardial infarction, diagnosed with Unspecified heart disease, Diabetic - NIDDM.?Paternal Grand Mother: .?Paternal Grand Father: .?Maternal Grand Mother: unknown.?Maternal Grand Father: .? * Social History:?Tobacco Use:?Tobacco Use/Smoking?Are you a:?nonsmoker ?Additional Findings: Tobacco Non-User?Current non-smoker ?Tobacco use other than smoking?Are you an other tobacco user??No ???Drugs/Alcohol:?Drugs?Have you used drugs other than those for medical reasons in the past 12 months??No ?Alcohol Screen?Did you have a drink containing alcohol in the past year??No ?Points?0 ?Interpretation?Negative ???Miscellaneous:?Caffeine: yes, Soda 3-5 cups a week. ?Children: yes. ?no Exercise. ?Marital status: . 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 * Medications:?TakingTylenol Z inc Cholecalciferol 50 MCG (1999 UT) Capsule 1 capsule Orally Once a day, Notes: vitamin [id number] HCl 500 MG Tablet 1 tablet with a meal Orally Once a daymetroNIDAZOLE 1 % Cream 1 application Externally Once a dayMetoprolol Succinate 25 MG Capsule ER 24 Hour Sprinkle 1 capsule Orally Once a dayPravastatin Sodium 80 MG Tablet 1 tablet Orally Once a dayExtra Depth Orthopedic Shoes (1 Pair) with Customized Heat Molded Multidensity Innersoles (3 Pair) as directed Dx: NIDDM/Polyneuropathy (E11.42), Hammertoe Foot Deformity (M20.41,M20.42), Preulcerative Skin Lesion(s) (L85.1Taking Tylenol Taking Zinc Taking Cholecalciferol 50 MCG (1999 UT) Capsule 1 capsule Orally Once a day, Notes: vitamin J1Zgaroh metFORMIN HCl 500 MG Tablet 1 tablet with a meal Orally Once a dayTaking metroNIDAZOLE 1 % Cream 1 application Externally Once a dayTaking Metoprolol Succinate 25 MG Capsule ER 24 Hour Sprinkle 1 capsule Orally Once a dayTaking Pravastatin Sodium 80 MG Tablet 1 tablet Orally Once a dayTaking Extra Depth Orthopedic Shoes (1 Pair) with Customized Heat Molded Multidensity Innersoles (3 Pair) as directed Dx: NIDDM/Polyneuropathy (E11.42), Hammertoe Foot Deformity (M20.41,M20.42), Preulcerative Skin Lesion(s) (L85.1Not-Taking/PRNExtra Depth Orthopedic Shoes (1 Pair) with Customized Heat Molded Multidensity Innersoles (3 Pair) as directed Dx: NIDDM/Polyneuropathy (E11.42), Hammertoe Foot Deformity (M20.41,M20.42), Preulcerative Skin Lesion(s) (L85.1Gabapentin LamISIL 250 MG Tablet 1 tablet Orally Once a day for 7 days stop for 3 weeks repeat cycleCephalexin 500 MG Capsule 1 capsule Orally every 12 hrsVitamin B Complex - Tablet as directed Orally Medication List reviewed and reconciled with the patientNot-Taking/PRN Extra Depth Orthopedic Shoes (1 Pair) with Customized Heat Molded Multidensity Innersoles (3 Pair) as directed Dx: NIDDM/Polyneuropathy (E11.42), Hammertoe Foot Deformity (M20.41,M20.42), Preulcerative Skin Lesion(s) (L85.1Not-Taking/PRN Gabapentin Not-Taking/PRN LamISIL 250 MG Tablet 1 tablet Orally Once a day for 7 days stop for 3 weeks repeat cycleNot-Taking/PRN Cephalexin 500 MG Capsule 1 capsule Orally every 12 hrsNot-Taking/PRN Vitamin B Complex - Tablet as directed Orally Medication List reviewed and reconciled with the patient * Allergies:?N.K.D.A.yes[Aller gies Verified] Objective: * Vitals:?Ht: 5ft 6in, Wt:220, BMI:35.51, Shoe size:8.5-9W, BS: not taken. * Examination: ???Ophthalmology Referral: ?DIABETES EYE EXAM?Neurological: ?SENSORY:?Neurological exam demonstrates, reduced vibration sensation, 5.07 monofilament test performed at plantar aspects of 5 varied sites per foot shows sensation, reduced , B/L, Pt relates, burning.?Vascular: ?DP PULSES:?2/4, B/L.?PT PULSES:?2/4, B/L.?EDEMA:?3/4 , non-pitting , Leg(s) , Ankle(s) , Foot , B/L.?MARILOU'S SIGN:?absent, B/L.?PALPABLE CORDS:?absent, B/L.?Nails: ?NAILS are:?Elongated, overgrown, dystrophic, lytic, greater than 3mm thick, discolored and friable with crumbly malodorous subungual debris , with dull to no pain on palpation due to neuropathy , 3-5 right , , 1-5 Left foot.?Dermatologic: ?SKIN FINDINGS:?Skin exam reveals normal color, texture, elasticity, and turgor. There are no masses, nor excrescences. The interspaces are clear, B/L , Skin exam reveals Keratotic lesion(s) located at , , Heel(s) , B/L.?Abscess/infected nail: ?INSPECTION?Reveals nail incurvation, pain on palpation, groove laceration, inflammation, malodor, localized cellulitis, and purulent abscess with pre- operative size of approximately ( 1-2 ) mm square without exposed bone , , T6.?General Examination: ?GENERAL APPEARANCE:? Denies fever, chills, malaise, lymphadenopathy.?Ingrown Nail: ?INSPECTION:?Reveals nail incurvation, pain on palpation, groove hypertrophy , groove ischemia , Bilateral nail borders , , T5.? Assessment: * Assessment: 1.?Type 2 diabetes mellitus with diabetic polyneuropathy - E11.42?2.?Tinea unguium - B35.1?3.?Abscess of toe, right - L02.611 (Primary)?4.?Ingrown nail - L60.0?5.?Edema, lower extremity - R60.0, Acute problem, Uncomplicated (3), Rx Management (4)? Plan: * Treatment: 2.?Type 2 diabetes mellitus with diabetic polyneuropathy?Procedure: 16154-WKJL SKIN LESIONS, 2 TO 4 3.?Tinea unguium?Procedure: 74693-DDORZEA NAIL, 6 OR MORE 4.?Ingrown nail?Procedure: 79016-Fyucfklj Plate 5.?Edema, lower extremity? Start Compression Stockings closed toe- knee high, 20-30mm Hg, 1 pair, wear, daily, 30 days, 2, Refills 2.?? Notes: open toe?? * Procedures:?Debride Nail 6-10:?Nail debridement?Nail debridement performed extensively to reduce/remove overall nail length and girth, subungual debris, and necrotic tissue, by manual and electrical means with use of a nail nipper and/or dremel, to more viable healthy nail plate or bed tissue 6-10. Silver nitrate used for any petechial bleeding as necessary. Patient chooses, no pharmaceutical tx (53833).?I&D nail abscess:?Type?Single, Abscess.?Anesthesia?3cc of 1 percent Lidocaine Plain local anesthesic utilizing aseptic technique.?Location?Lateral nail border, T6, ?.?Procedure?Performed incision and drainage of Single Nail Abscess with use of sterile nail nipper/316 blade. Approximately ( 0.1 ) cc purulent fluid material was drained. The infected devitalized soft tissue was curettaged to healthy bleeding bed. Any affected nail portion was removed to the eponychium . Any evidence of granuloma was also removed at this time. No underlying bone was visualized. There was minimal bleeding as hemostasis was achieved through the temporary use of either a digital tournaquet or the aforementioned local with epinephrine. An application of sterile Bacitracin dressing was performed. Local wound care instructions were discussed and dispensed. Recommended Tylenol or Motrin for pain/discomfort (48397).?Keratoma Treatment:?Parring or Cutting of Benign Hyperkeratotic Lesion(s)?74985 ( 2-4 Lesions ) - The Benign hyperkeratotic lesions, as described above were pared, and/or cut utilizing a sterile 15 blade, tissue nippers, and/or dremel.?Nail Avulsion:?Location?Bilateral nail border , T5.?Anesthesia?was accomplished TOPICALLY with Lidocaine Hydrochloride Jelly 2 percent.?Procedure?A fine sterile elevator was placed between the eponychium, nail fold, and nail plate to separate the structures. A sterile nail splitter, and/or sterile 316 blade, was then used to longitudinally section the nail along its entire length through the eponychium to the area under the nail fold. The offending portion of nail was from the nail bed with a rolling action and then removed with a hemostat. No underlying bone was identified. There was minimal bleeding as hemostasis was achieved through the temporary use of either a digital tourniquet or the aforementioned local with epinephrine. A bacitracin sterile dressing was applied. Local wound aftercare instructions were discussed and dispensed. The patient was informed of both conservative and future surgical procedures to prevent recurrence. Tylenol or Motrin was recommended for pain or discomfort (80405).? * Procedure Codes:?31831 DRAIN AGE OF SKIN ABSCESS, Modifiers: T6 94958 DEBRIDE NAIL, 6 OR MORE, Modifiers: XS 51437 Avulsion Plate, Modifiers: T5 56525 TRIM SKIN LESIONS, 2 TO 4, Modifiers: XS * Preventive Medicine:? ??Counseling:?Discussion:?-13: Office or other outpatient visit for the evaluation and management of an established patient, which required a medically appropriate history and/or examination and LOW level of DECISION MAKING for: 1 STABLE ACUTE UNCOMPLICATED PROBLEM, 2 OR MORE MINOR PROBLEMS, OR 1 STABLE CHRONIC PROBLEM, THAT POSE(S) A LOW RISK FOR MORBIDITY/MORTALITY. The visit on the day of the encounter encompassed interpreting the data and educating the patient as to the nature of their condition, treatment options available according to their individual PMH, meds, allergies, and overall health/living conditions, as well as any potential risks or complications that may occur from a failure to adhere to, and participate in, the recommended course of therapy. The discussion included a complete verbal, and/or written explanation of the examination results, any x-rays taken, the proposed diagnosis, and outline of the treatment plan. A schedule for future care needs was also explained. The patient verbalized an understanding of the instructions at this time and agreed to be an active participant in their treatment. If the patient should think of any questions or concerns after the visit, I have encouraged the patient to call the office.?Edema:?I explained to the patient the possible etiologies for Edema, including genetic, surgery, infection, medications, heart disease, kidney disease, excess dietary salt, and various cancer treatments. We discussed the risks/benefits of the treatment options available including rest, elevation, OTC compression stockings, Rx compression stockings, Unna Boot application, diet modification to limit salt intake, and Rx segmental compression boots provided the absence of CHD in the patients medical history. The advantages and disadvantages of each option were discussed and the patients questions re: risk of infection(cellulitis), medications, diet, and the daily use of compression stockings(not to be worn at night), and consistency in these home treatment regimens for optimal success were answered to their verbally confirmed satisfaction. Given the risk for vessel clotting disease, the patient was instructed to go immediately to the ER of hospital should they experience any calf pain, SOB, or discomfort. Any changes to the patients medication regimen will be performed by the PCP or patients kidney/heart/cancer specialist. The patient has elected to receive compression stockings. Such were Rxed today with instructions for use- recomm. open toes.? * Follow Up:?2 Weeks * Images: * Sign off status: Completed true * Provider:?Sera Saez DPM Date:?2023 Generated for Martha saha/Arnav/Karl on:?02/03/2024 06:54 AM EST History and Physical Notes * HPI (History of Present Illness) Category Sub-Category Detail Notes Category Not es At Risk footcare Pt States Last PCP Visit: Date: 4 Swelling Location: Both feet/leg Duration: several weeks Course: worse Examination Category Sub-Category Detail Notes Category Not es Ingrown Nail INSPECTION: Reveals nail inc urvation, pain on palpation, groove hypertrophy , groove ischemia , Bilateral nail borders , , T5 Neurological SENSORY: Neurological exa m demonstrates, reduced vibration sensation, 5.07 monofilament test performed at plantar aspects of 5 varied sites per foot shows sensation, reduced , B/L, Pt relates, burning Dermatologic SKIN FINDINGS: Skin exam reveal s normal color, texture, elasticity, and turgor. There are no masses, nor excrescences. The interspaces are clear, B/L , Skin exam reveals Keratotic lesion(s) located at , , Heel(s) , B/L General Examination GENERAL APPEARANCE: Denies f ever, chills, malaise, lymphadenopathy Ophthalmology Referral DIABETES EYE EXAM Diabetic Retinopathy Screening:: No Findings of Diabetic Eye Exam:: no retin opathy Vascular DP PULSES(B): 2/4, B/L PT PULSES(B): 2/4, B/L EDEMA(C): 3/4 , non-pitting , Leg(s) , Ankle(s) , Foot , B/L MARILOU'S SIGN: absent, B/L PALPABLE CORDS: absent, B/L Nails NAILS are: Elongated, overg rown, dystrophic, lytic, greater than 3mm thick, discolored and friable with crumbly malodorous subungual debris , with dull to no pain on palpation due to neuropathy , 3-5 right , , 1-5 Left foot Abscess/infected nail INSPECTION Reveals na il incurvation, pain on palpation, groove laceration, inflammation, malodor, localized cellulitis, and purulent abscess with pre-operative size of approximately ( 1-2 ) mm square without exposed bone , , T6
== END 2024-01-29 09:45 | disposition home or self-care (01) ==
PROVIDERS: PCP Nurse Practitioner Family; Visit Provider Orthopaedic Surgery
DX: Z47.89 Encounter for other orthopedic aftercare (principal); Z96.642 Presence of left artificial hip joint
CPT/HCPCS: 99213

== ENCOUNTER → 2024-01-29 09:22 | Outpatient (BNVA) | payer OTHER, SELFPAY | PROVIDERS: PCP Nurse Practitioner Family; Visit Provider Orthopaedic Surgery | DX: M25.561 Pain in right knee (principal); Z96.642 Presence of left artificial hip joint; Z91.81 History of falling | CPT/HCPCS: 99212 ==

== ENCOUNTER 2024-02-16 09:10 | Outpatient (REF) | payer OTHER, SELFPAY ==
--- OUTSIDE RECORDS SUMMARY | 2024-02-16 09:14 | XMS_ITS ---
Author Organization [facility] Address [address] [place] [address] Care Team Providers Care Software Quality Automation Engineer Name Role Phone Meño BECK, Eduardo Primary Care Provider UnavailSera Modoy Unavailable [phone] Cinthia BECK, Rosy Snell Unavailable Unavaila ble REASON FOR VISIT cx 10/04 Encounters Encounter Location Date Provider Diagnosis [facility] [address] [place] [address] 09/24/2023 Sera Saez Plan Of Treatment No Information Progress Notes * TAMIROlive CHAMBERLAINDOB:1960 (63 yo F)Acc No.[id number]:09/24/2023 Patient:?Olive Henry :1960???Age:63 Y???Sex:Female Address:[address] [place] [address], [address] * true * Date:? Generated for Martha saha/Arnav/eTransmitting on:?02/16/2024 09:13 AM EST
--- OUTSIDE RECORDS SUMMARY | 2024-02-16 09:14 | XMS_ITS | Patient Health Record ---
Author Organization [facility] Address [address] [place] [address] Care Team Providers Care Director Of Food And Nutrition Services Name Role Phone Meño BECK, Eduardo Primary Care Provider Unavailabl e Sera Saez Unavailable [phone] Cinthia BECK, Rosy Snell Unavailable Unavaila ble [...] Problem Acquired hammer toe of right foot (4379653103905111 ) Other hammer toe(s) (acquired), right foot (M20.41) Active confirmed Problem Acquired hammer toe of left foot (0442113942230705 ) Other hammer toe(s) (acquired), left foot (M20.42) Active confirmed Problem Ulcer of toe (057502933) Non-pressure chronic ulcer of other part of right foot limited to breakdown of skin (L97.511) Active confirmed Problem Polyneuropathy due to type 2 diabetes mellitus (470796090) Type 2 diabetes mellitus with diabetic polyneuropathy (E11.42) Active confirmed Problem Ulcer of toe of right foot (disorder) (3639118592543891 1) Skin ulcer of toe of right foot, limited to breakdown of skin (L97.511) Active confirmed Problem Ulcer of toe of left foot (disorder) (5161308845120483 2) Skin ulcer of toe of left foot, limited to breakdown of skin (L97.521) Active confirmed Vital Signs Height 5ft 6in in 06/22/2023 Weight 220 lbs 06/22/2023 BMI 35.51 kg/m2 06/22/2023 Procedures Procedure Date Ordered Date Performed Result Body Sit e 22855-VXSCXUV NAIL, 6 OR MORE 03/23/2023 N/A 88538-YCUW SKIN LESIONS, 2 TO 4 03/23/2023 N/A 10872-XMWRGCE NAIL, 6 OR MORE 06/22/2023 N/A 13454-Wtiqdgzz Plate 06/22/2023 N/A 09274 I&D ABSCESS- SIMPLE,SINGLE 06/22/2023 N/A 64569-LXGI SKIN LESIONS, 2 TO 4 06/22/2023 N/A Encounters Encounter Location Date [facility] [address] 03/23/2023 Sera Saez Type 2 diabetes mellitus with diabetic polyneuropathy E11.42 and Tinea unguium B35.[address] [address] 06/22/2023 Seramarie Saez Type 2 diabetes mellitus with diabetic polyneuropathy E11.42 ; Tinea unguium B35.1 ; Abscess of toe, right L02.611 ; Ingrown nail L60.0 and Edema, lower extremity R60.[address] [address] 09/24/2023 Sera Saez Assessments Encounter Date Diagnosis [...] Order Date *Liver Function Test (LFT) 09/27/2020 29696-MZVQSBT NAIL, 6 OR MORE 09/27/2020 36622-EWLUUNU NAIL, 6 OR MORE 01/07/2021 72920-DSAHXGU NAIL, 6 OR MORE 04/29/2021 19485-CCGNTCW NAIL, 6 OR MORE 08/12/2021 02645-ZOFXILA NAIL, 6 OR MORE 11/11/2021 88283-OFDEBCH NAIL, 6 OR MORE 03/03/2022 30397-DIGWCJV NAIL, 6 OR MORE 12/15/2022 33437-NLGYVTQ NAIL, 6 OR MORE 03/23/2023 35301-ROXYMES NAIL, 6 OR MORE 06/22/2023 66506-DHJKTEU NAIL, 1-5 08/04/2022 12763-Ljftunha Plate 06/22/2023 47351-Gwywttms Plate 08/12/2021 21166-Jsefbflk Plate 08/04/2022 17401-Fyfnpzwa Plate 04/29/2021 34572-Oyiapxpd Plate 01/07/2021 99570-Sgvzucox Plate 09/27/2020 87174-Cbzultui Plate Each Additional 72209-Emjjmgmg Plate Each Additional 01/2023 70317- Debride <25 sq cm 05/16/2021 20950 I&D ABSCESS- SIMPLE,SINGLE 022 24826 I&D ABSCESS- SIMPLE,SINGLE 022 96765 I&D ABSCESS- SIMPLE,SINGLE 021 75815 I&D ABSCESS- SIMPLE,SINGLE 023 59878 I&D ABSCESS- SIMPLE,SINGLE 024 77309-ONXU SKIN LESIONS, 2 TO 4 03/23/19 24 68456-XKWL SKIN LESIONS, 2 TO 4 06/22/19 24 Insurance Providers Payer Name Payer Address Payer Phone Subscriber Number Group Number Insured Name Patient Relationship to Insured Coverage Start Date Coverage End Date [facility] hospital [address] [place], [place] [address], [place] [address] [id number] Olive Henry Self - patient is the [...]
--- OUTSIDE RECORDS SUMMARY | 2024-02-16 09:14 | XMS_ITS ---
Author Organization [facility] Address [address] [place] [address] Care Team Providers Care Front Office Java Developer Name Role Phone Meño BECK, Eduardo Primary Care Provider UnavailSera Moody Unavailable [phone] Cinthia BECK, Rosy Snell Unavailable Unavaila ble [...] Ordered Date Performed Result Body Sit e 69756-RBVZTUG NAIL, 6 OR MORE 06/22/2023 N/A 89806-Xlfwbkys Plate 06/22/2023 N/A 52782 I&D ABSCESS- SIMPLE,SINGLE 06/22/2023 N/A 40704-SUIS SKIN LESIONS, 2 TO 4 06/22/2023 N/A Encounters Encounter Location Date Provider Diagnosis [facility] [address] [address] 06/22/2023 Sera Black Type 2 diabetes mellitus [...] toe Pending Test Test Name Order Date 50387-YDRTXSO NAIL, 6 OR MORE 06/22/2023 65818-Dkjkmxwg Plate 06/22/2023 70080 I&D ABSCESS- SIMPLE,SINGLE 024 36934-NHIP SKIN LESIONS, 2 TO 4 06/22/19 24 [...] Motrin was recommended for pain or discomfort (14695) Anesthesia was accomplished TOP ICALLY with Lidocaine [...] as necessary. Patient chooses, no pharmaceutical tx (35351) I&D nail abscess Location Lateral nail rhoda [...] dispensed. Recommended Tylenol or Motrin for pain/discomfort (70070) Type Single, Abscess Anesthesia 3cc of 1 percent Lid ocaine Plain local anesthesic utilizing aseptic technique Keratoma Treatment Parring or Cutting o f Benign Hyperkeratotic Lesion(s) 01811 ( 2-4 Lesions ) - The Benign hyperkeratotic lesions, as described above were pared, and/or cut utilizing a sterile 15 blade, tissue nippers, and/or dremel Progress Notes * TAMIR DianababatundeDOB:1960 (63 yo F)Acc No.[id number]:06/22/2023 Progress Note Patient:?Tamir Olive Provider:?Sera Saez DPM :1960???Age:63 Y???Sex:Female D ate:06/22/2023 Address:[address] [place] [address] Pcp:Eduardo Wilder MD Subjective: * Chief Complaints: [...] capsule Orally Once a day, Notes: vitamin N7vocNLFLTB HCl 500 MG Tablet 1 tablet with [...] capsule Orally Once a day, Notes: vitamin B5Osvgue metFORMIN HCl 500 MG Tablet 1 tablet [...] 2.?Type 2 diabetes mellitus with diabetic polyneuropathy?Procedure: 37904-MDCJ SKIN LESIONS, 2 TO 4 3.?Tinea unguium?Procedure: 62273-SQSTRPI NAIL, 6 OR MORE 4.?Ingrown nail?Procedure: 10291-Glnvozkv Plate 5.?Edema, lower extremity? Start Compression Stockings [...] as necessary. Patient chooses, no pharmaceutical tx (38904).?I&D nail abscess:?Type?Single, Abscess.?Anesthesia?3cc of 1 percent Lidocaine [...] dispensed. Recommended Tylenol or Motrin for pain/discomfort (32191).?Keratoma Treatment:?Parring or Cutting of Benign Hyperkeratotic Lesion(s)?08601 ( 2-4 Lesions ) - The Benign [...] Motrin was recommended for pain or discomfort (84996).? * Procedure Codes:?77639 DRAIN AGE OF SKIN ABSCESS, Modifiers: T6 07037 DEBRIDE NAIL, 6 OR MORE, Modifiers: XS 42417 Avulsion Plate, Modifiers: T5 37965 TRIM SKIN LESIONS, 2 TO 4, Modifiers: [...] Saez DPM Date:?2023 Generated for Martha saha/Arnav/Karl on:?02/16/2024 09:14 AM EST History and Physical Notes * [...] Eye Exam:: no retin opathy Vascular DP PULSES (B): 2/4, B/L PT PULSES (B): 2/4, B/L EDEMA (C): 3/4 , non-pitting , Leg(s) , Ankle(s) [...]
== END 2024-02-16 09:11 | disposition home or self-care (01) ==
LOC: HO.MAMMO 09:10
PROVIDERS: PCP Nurse Practitioner Family; Visit Provider Nurse Practitioner Family
DX: Z12.31 Encounter for screening mammogram for malignant neoplasm of breast (principal)
CPT/HCPCS: 77063; 77067

== ENCOUNTER → 2024-02-16 09:15 | Outpatient (BNV) | payer OTHER, SELFPAY | PROVIDERS: PCP Nurse Practitioner Family; Visit Provider Internal Medicine | DX: Z12.31 Encounter for screening mammogram for malignant neoplasm of breast (principal) | CPT/HCPCS: 77063; 77067 ==

== ENCOUNTER 2024-03-25 09:36 | Outpatient (REF) | payer OTHER, SELFPAY ==
--- NOTE | ~2024-03-25 | XR_ITS ---
CLINICAL HISTORY: M25.559 - Pain in unspecified hip 2 view pelvis Comparison: None Findings: No acute fracture or dislocation. Components of the left hip prosthesis are intact and well aligned. No significant arthritic changes. Soft tissues are unremarkable. IMPRESSION: 1. No acute findings. This document has been electronically signed by: Eduardo Lino MD on 03/25/2024 18:04:40
--- NOTE | ~2024-03-25 | XR_ITS ---
CLINICAL HISTORY: M25.552 - Pain in left hip 1 view left hip Comparison: None Findings: No acute fracture or dislocation Components of the hip prosthesis are intact and well aligned. No significant arthritic change. The soft tissues are unremarkable. There is regional arterial calcification. IMPRESSION: No acute findings. This document has been electronically signed by: Eduardo Lino MD on 03/25/2024 18:05:09
== END 2024-03-25 09:37 | disposition home or self-care (01) ==
LOC: HO.HOSX 09:36
PROVIDERS: PCP Nurse Practitioner Family; Visit Provider Orthopaedic Surgery
DX: M25.552 Pain in left hip (principal); M25.559 Pain in unspecified hip; Z96.642 Presence of left artificial hip joint
CPT/HCPCS: 72170; 73501; 99212

== ENCOUNTER → 2024-03-25 09:57 | Outpatient (BNV) | payer OTHER, SELFPAY | PROVIDERS: PCP Nurse Practitioner Family; Visit Provider Specialist | DX: M25.552 Pain in left hip (principal) | CPT/HCPCS: 72170; 73501 ==

== ENCOUNTER 2024-04-12 08:43 | Outpatient (REF) | payer OTHER, SELFPAY ==
--- NOTE | ~2024-04-12 | MM_ITS ---
EXAMINATION: MM DIAGNOSTIC DIGITAL BREAST TOMOSYNTHESIS, LEFT Limited left breast ultrasound. CLINICAL INFORMATION: Call back from screening for asymmetry in the superior left breast on MLO view. COMPARISON: Mammography: Available prior examinations. TECHNIQUE: Digital breast tomosynthesis is performed in both the craniocaudal and mediolateral oblique views along with computer-aided detection (CAD). Synthesized 2D images are generated from the tomosynthesis. Limited left breast ultrasound. FINDINGS: There are scattered areas of fibroglandular density (ACR BI-RADS breast composition Category b). Asymmetry in the superior left breast on MLO view near completely effaces on additional imaging projections and is not significantly changed from prior mammograms. There are no significant masses, abnormal calcifications, or other abnormalities. Targeted color Doppler ultrasound scanning in the left breast intended 2:00 demonstrates normal fibroglandular breast tissue. MM/MM tomosynthesis added views L IMPRESSION: No mammographic or sonographic evidence of malignancy. ASSESSMENT: BI-RADS BI-RADS 1 - Negative RECOMMENDATION: 1 year F/U Results were provided to the patient at time of visit by the technologist. This patient's information was entered into a reminder system with a target due date for their next mammogram. Electronically signed by: Keiko Earl DO 04/12/2024 10:26 AM [place]
--- OUTSIDE RECORDS SUMMARY | 2024-04-12 09:11 | XMS_ITS ---
Author Organization [facility] Address [address] [place] [address] Care Team Providers Care Yoker Name Role Phone Meño BECK, Eduardo Primary Care Provider UnavailSera Moody Unavailable [phone] Cinthia BECK, Rosy Snell Unavailable Unavaila ble REASON FOR VISIT cx 10/04 Encounters Encounter Location Date Provider Diagnosis [facility] [address] [place] [address] 09/24/2023 Sera Saez Plan Of Treatment No Information Progress Notes * TAMIROlive CHAMBERLAINDOB:1960 (63 yo F)Acc No.[id number]:09/24/2023 Patient:?Olive Henry :1960???Age:63 Y???Sex:Female Address:[address] [place] [address], [address] * true * Date:? Generated for Martha saha/Arnav/eTransmitting on:?04/12/2024 09:11 AM EST
--- OUTSIDE RECORDS SUMMARY | 2024-04-12 09:11 | XMS_ITS | Patient Health Record ---
Author Organization [facility] josee NagelGarrison Address [address] [place] [address] Care Team Providers Care Mouthpiece Maker Name Role Phone Meño BECK, Eduardo Primary Care Provider Unavailabl e Sera Saez Unavailable [phone] Cinthia BECK, Rosy Snell Unavailable Unavaila ble [...] Problem Acquired hammer toe of right foot (8974351926671383 ) Other hammer toe(s) (acquired), right foot (M20.41) Active confirmed Problem Acquired hammer toe of left foot (5990193415744134 ) Other hammer toe(s) (acquired), left foot (M20.42) Active confirmed Problem Ulcer of toe (485118460) Non-pressure chronic ulcer of other part of right foot limited to breakdown of skin (L97.511) Active confirmed Problem Polyneuropathy due to type 2 diabetes mellitus (253154440) Type 2 diabetes mellitus with diabetic polyneuropathy (E11.42) Active confirmed Problem Ulcer of toe of right foot (disorder) (0737612500889532 1) Skin ulcer of toe of right foot, limited to breakdown of skin (L97.511) Active confirmed Problem Ulcer of toe of left foot (disorder) (1473419400666753 2) Skin ulcer of toe of left foot, limited to breakdown of skin (L97.521) Active confirmed Vital Signs Height 5ft 6in in 06/22/2023 Weight 220 lbs 06/22/2023 BMI 35.51 kg/m2 06/22/2023 Procedures Procedure Date Ordered Date Performed Result Body Sit e 74500-OKSQJBP NAIL, 6 OR MORE 06/22/2023 N/A 68029-Bqfimrzf Plate 06/22/2023 N/A 75258 I&D ABSCESS- SIMPLE,SINGLE 06/22/2023 N/A 61759-ROMV SKIN LESIONS, 2 TO 4 06/22/2023 N/A Encounters Encounter Location Date Provider Diagnosis [address] [address] 06/22/2023 Sera Saez Type 2 diabetes mellitus with diabetic polyneuropathy E11.42 ; Tinea unguium B35.1 ; Abscess of toe, right L02.611 ; Ingrown nail L60.0 and Edema, lower extremity R60.[address] [facility] [address] 09/24/2023 Sera Saez Assessments Encounter Date Diagnosis [...] Order Date *Liver Function Test (LFT) 09/27/2020 64206-DUFCHEJ NAIL, 6 OR MORE 09/27/2020 91137-NZTYRYL NAIL, 6 OR MORE 01/07/2021 36677-QRNBKLW NAIL, 6 OR MORE 04/29/2021 88491-GRAEJJP NAIL, 6 OR MORE 08/12/2021 64173-TXSYPFX NAIL, 6 OR MORE 11/11/2021 23883-GCFUSWL NAIL, 6 OR MORE 03/03/2022 36887-RYVNXDC NAIL, 6 OR MORE 12/15/2022 56677-LNCOYPJ NAIL, 6 OR MORE 03/23/2023 13265-WBOQFQC NAIL, 6 OR MORE 06/22/2023 90351-RLIWCZK NAIL, 1-5 08/04/2022 77799-Tqcktauc Plate 06/22/2023 13060-Beegcemw Plate 08/12/2021 27317-Osjhwmpv Plate 08/04/2022 74161-Sgrekcki Plate 04/29/2021 02180-Yrouxduu Plate 01/07/2021 79182-Yvylkvth Plate 09/27/2020 28477-Haqxxmst Plate Each Additional 38619-Etqskbws Plate Each Additional 01/2023 20045- Debride <25 sq cm 05/16/2021 07508 I&D ABSCESS- SIMPLE,SINGLE 022 27406 I&D ABSCESS- SIMPLE,SINGLE 022 80978 I&D ABSCESS- SIMPLE,SINGLE 021 21064 I&D ABSCESS- SIMPLE,SINGLE 023 84876 I&D ABSCESS- SIMPLE,SINGLE 024 56985-QHBY SKIN LESIONS, 2 TO 4 03/23/19 53137-ITEM SKIN LESIONS, 2 TO 4 06/22/19 Insurance Providers Payer Name Payer Address Payer Phone Subscriber Number Group Number Insured Name Patient Relationship to Insured Coverage Start Date Coverage End Date [facility] [address] [address] [phone] [id number] Olive Henry Self - patient is the [...]
--- OUTSIDE RECORDS SUMMARY | 2024-04-12 09:11 | XMS_ITS ---
Author Organization [facility] Address [address] [place] [address] Care Team Providers Care Environmental Compliance Officer Name Role Phone Meño BECK, Eduardo Primary Care Provider UnavailSera Moody Unavailable [phone] Cinthia BECK, Rosy Snell Unavailable Unavaila ble [...] Ordered Date Performed Result Body Sit e 39940-VVMIFLG NAIL, 6 OR MORE 06/22/2023 N/A 30218-Pbkxouap Plate 06/22/2023 N/A 52783 I&D ABSCESS- SIMPLE,SINGLE 06/22/2023 N/A 39297-LXIV SKIN LESIONS, 2 TO 4 06/22/2023 N/A Encounters Encounter Location Date Provider Diagnosis [facility] [address] [address] 06/22/2023 Sera Black Type 2 diabetes mellitus [...] toe Pending Test Test Name Order Date 64709-FWLKDIP NAIL, 6 OR MORE 06/22/2023 08328-Anorngwa Plate 06/22/2023 06102 I&D ABSCESS- SIMPLE,SINGLE 024 24487-IXLN SKIN LESIONS, 2 TO 4 06/22/19 24 [...] Motrin was recommended for pain or discomfort (04317) Anesthesia was accomplished TOP ICALLY with Lidocaine [...] as necessary. Patient chooses, no pharmaceutical tx (34315) I&D nail abscess Location Lateral nail rhoda [...] dispensed. Recommended Tylenol or Motrin for pain/discomfort (14105) Type Single, Abscess Anesthesia 3cc of 1 percent Lid ocaine Plain local anesthesic utilizing aseptic technique Keratoma Treatment Parring or Cutting o f Benign Hyperkeratotic Lesion(s) 96054 ( 2-4 Lesions ) - The Benign hyperkeratotic lesions, as described above were pared, and/or cut utilizing a sterile 15 blade, tissue nippers, and/or dremel Progress Notes * TAMIR DianababatundeDOB:1960 (64 yo F)Acc No.[id number]:06/22/2023 Progress Note Patient:?TAMIR Olive Provider:?Sera Saez DPM :1960???Age:63 Y???Sex:Female D ate:06/22/2023 Address:[address] [place] [address] Pcp:Eduardo Wilder MD Subjective: * Chief Complaints: [...] Soda 3-5 cups a week. ?Children: yes. ?Exercise: no. ?Marital status: . 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 * Medications:?TakingTylenol Z inc Cholecalciferol 50 MCG (2000 UT) Capsule 1 capsule Orally Once a day , Notes to Pharmacist: vitamin L4habSFQMST HCl 500 MG Tablet 1 tablet with a meal Orally Once a day metroNIDAZOLE 1 % Cream 1 application Externally Once a day Metoprolol Succinate 25 MG Capsule ER 24 Hour Sprinkle 1 capsule Orally Once a day Pravastatin Sodium 80 MG Tablet 1 tablet Orally Once a day Extra Depth Orthopedic Shoes (1 Pair) with Customized Heat Molded Multidensity Innersoles (3 Pair) as directed Dx: NIDDM/Polyneuropathy (E11.42), Hammertoe Foot Deformity (M20.41,M20.42), Preulcerative Skin Lesion(s) (L85.1 Taking Tylenol Taking Zinc Taking Cholecalciferol 50 MCG (2000 UT) Capsule 1 capsule Orally Once a day , Notes to Pharmacist: vitamin U2Qnprfo metFORMIN HCl 500 MG Tablet 1 tablet with a meal Orally Once a day Taking metroNIDAZOLE 1 % Cream 1 application Externally Once a day Taking Metoprolol Succinate 25 MG Capsule ER 24 Hour Sprinkle 1 capsule Orally Once a day Taking Pravastatin Sodium 80 MG Tablet 1 tablet Orally Once a day Taking Extra Depth Orthopedic Shoes (1 Pair) with Customized Heat Molded Multidensity Innersoles (3 Pair) as directed Dx: NIDDM/Polyneuropathy (E11.42), Hammertoe Foot Deformity (M20.41,M20.42), Preulcerative Skin Lesion(s) (L85.1 Not-Taking/PRNExtra Depth Orthopedic Shoes (1 Pair) with Customized Heat Molded Multidensity Innersoles (3 Pair) as directed Dx: NIDDM/Polyneuropathy (E11.42), Hammertoe Foot Deformity (M20.41,M20.42), Preulcerative Skin Lesion(s) (L85.1 Gabapentin LamISIL 250 MG Tablet 1 tablet Orally Once a day for 7 days stop for 3 weeks repeat cycle Cephalexin 500 MG Capsule 1 capsule Orally every 12 hrs Vitamin B Complex - Tablet as directed Orally Medication List reviewed and reconciled with the patientNot-Taking/PRN Extra Depth Orthopedic Shoes (1 Pair) with Customized Heat Molded Multidensity Innersoles (3 Pair) as directed Dx: NIDDM/Polyneuropathy (E11.42), Hammertoe Foot Deformity (M20.41,M20.42), Preulcerative Skin Lesion(s) (L85.1 Not-Taking/PRN Gabapentin Not-Taking/PRN LamISIL 250 MG Tablet 1 tablet Orally Once a day for 7 days stop for 3 weeks repeat cycle Not-Taking/PRN Cephalexin 500 MG Capsule 1 capsule Orally every 12 hrs Not-Taking/PRN Vitamin B Complex - Tablet as directed [...] reduced , B/L, Pt relates, burning.?Vascular: ?DP PULSES (B):?2/4, B/L.?PT PULSES (B):?2/4, B/L.?EDEMA (C):?3/4 , non-pitting , Leg(s) , Ankle(s) , [...] Examination: ?GENERAL APPEARANCE:? Denies fever, chills, malaise, lymphadenopathy.?FOOT EXAM:?Ingrown Nail: ?INSPECTION:?Reveals nail incurvation, pain on palpation, groove hypertrophy , groove ischemia , Bilateral nail borders , , T5.? Assessment: * Assessment: 1.?Type 2 diabetes mellitus with diabetic polyneuropathy - E11.42???2.?Tinea unguium - B35.1???3.?Abscess of toe, right - L02.611 (Primary)???4.?Ingrown nail - L60.0???5.?Edema, lower extremity - R60.0???Specify :Acute problem, Uncomplicated (3), Rx Management (4)??? Plan: * Treatment: 2.?Type 2 diabetes mellitus with diabetic polyneuropathy?Procedure: 46309-VYBN SKIN LESIONS, 2 TO 4 3.?Tinea unguium?Procedure: 58664-FINWVKR NAIL, 6 OR MORE 4.?Ingrown nail?Procedure: 24859-Njelhybq Plate 5.?Edema, lower extremity? Start Compression Stockings [...] as necessary. Patient chooses, no pharmaceutical tx (18607).?I&D nail abscess:?Type?Single, Abscess.?Anesthesia?3cc of 1 percent Lidocaine Plain local anesthesic utilizing aseptic technique.?Location?Lateral nail border, T6, .?Procedure?Performed incision and drainage of Single Nail Abscess [...] dispensed. Recommended Tylenol or Motrin for pain/discomfort (77615).?Keratoma Treatment:?Parring or Cutting of Benign Hyperkeratotic Lesion(s)?16141 ( 2-4 Lesions ) - The Benign [...] Motrin was recommended for pain or discomfort (11904).? * Procedure Codes:?42826 DRAIN AGE OF SKIN ABSCESS, Modifiers: T6 48438 DEBRIDE NAIL, 6 OR MORE, Modifiers: XS 27071 Avulsion Plate, Modifiers: T5 16282 TRIM SKIN LESIONS, 2 TO 4, Modifiers: [...] Saez DPM Date:?2023 Generated for Martha saha/Arnav/Karl on:?04/12/2024 09:11 AM EST History and Physical Notes * [...] APPEARANCE: Denies f ever, chills, malaise, lymphadenopathy FOOT EXAM: Lower Extremity Neurological Exa m performed:: Yes Visual exam of foot performed:: Yes Date: 06/22/2023 Sensory testing performed:: sensations d iminished Sensory and motor testing performed:: se nsations diminished Pedal pulse taking performed:: 2+ Ophthalmology Referral DIABETES EYE EXAM Diabetic Retinopa thy Screening:: No Findings of Diabetic Eye Exam:: [...]
--- OUTSIDE RECORDS SUMMARY | 2024-04-12 09:11 | XMS_ITS ---
Author Organization [facility] Address [address] [place] [address] Care Team Providers Care Brick And Blocker Aid Labor Name Role Phone Meño BECK, Eduardo Primary Care Provider UnavailSera Moody Unavailable [phone] Cinthia BECK, Rosy Snell Unavailable Unavaila ble Encounters Encounter Location Date Provider Diagnosis [address] [address] 10/05/2023 Sera Saez Plan Of Treatment No Information Progress Notes * Olive GARNETTDOB:1960 (64 yo F)Acc No.[id number]:10/05/2023 Progress Note Patient:Olive CRUZ Provider:Shante Saez DPM :1960???Age:63 Y???Sex:Female D ate:10/05/2023 Address:[address] [place], [place] [id number] Pcp:Eduardo Wilder MD Subjective: * Chief Complaints: [...] Saez DPM Date:?2023 Generated for Doriani yifan/Faroe/eTransmitting on:?04/12/2024 09:11 AM EST
== END 2024-04-12 08:44 | disposition home or self-care (01) ==
LOC: HO.MAMMO 08:43
PROVIDERS: PCP Nurse Practitioner Family; Visit Provider Nurse Practitioner Family
DX: R92.8 Other abnormal and inconclusive findings on diagnostic imaging of breast (principal)
CPT/HCPCS: 76642; 77061; 77065

== ENCOUNTER → 2024-04-12 08:45 | Outpatient (BNV) | payer OTHER, SELFPAY | PROVIDERS: PCP Nurse Practitioner Family; Visit Provider Internal Medicine | DX: R92.322 Mammographic fibroglandular density, left breast (principal) | CPT/HCPCS: 76642; 77061; 77065 ==

== ENCOUNTER 2024-06-23 08:27 | Outpatient (REF) | payer OTHER, SELFPAY ==
--- NOTE | ~2024-06-23 | XR_ITS ---
EXAMINATION: XR HIP 1 VIEW LEFT, XR PELVIS 1-2 VIEWS HISTORY: M25.552 - Pain in left hip COMPARISON: There are no prior studies for comparison. FINDINGS: A single AP view of the pelvis and an additional view of the left hip are submitted. The patient is again noted to be status post total hip arthroplasty. The orthopedic elements are in anatomic alignment. There is no radiographic evidence of loosening. There is no fracture or dislocation. There are vascular calcifications. XR/XR hip LT 1V IMPRESSION: Status post left total hip arthroplasty. Electronically signed by: Hermelindo Vargas MD 06/23/2024 01:47 PM EDT
--- NOTE | ~2024-06-23 | XR_ITS ---
EXAMINATION: XR HIP 1 VIEW LEFT, XR PELVIS 1-2 VIEWS HISTORY: M25.552 - Pain in left hip COMPARISON: There are no prior studies for comparison. FINDINGS: A single AP view of the pelvis and an additional view of the left hip are submitted. The patient is again noted to be status post total hip arthroplasty. The orthopedic elements are in anatomic alignment. There is no radiographic evidence of loosening. There is no fracture or dislocation. There are vascular calcifications. XR/XR pelvis 1-2V IMPRESSION: Status post left total hip arthroplasty. Electronically signed by: Hermelindo Vargas MD 06/23/2024 01:47 PM EDT
--- OUTSIDE RECORDS SUMMARY | 2024-06-23 08:43 | XMS_ITS ---
Author Organization [facility] Address [address] [place] [address] Care Team Providers Care Sugar Coating Hand Name Role Phone Meño BECK, Eduardo Primary Care Provider UnavailSera Moody Unavailable [phone] Cinthia BECK, Rosy Snell Unavailable Unavaila ble REASON FOR VISIT cx 10/04 Encounters Encounter Location Date Provider Diagnosis [facility] [address] [place] [address] 09/24/2023 Sera Saez Plan Of Treatment No Information Progress Notes * TAMIROlive CHAMBERLAINDOB:1960 (63 yo F)Acc No.[id number]:09/24/2023 Patient:?Olive Henry :1960???Age:63 Y???Sex:Female Address:[address] [place] [address], [address] * true * Date:? Generated for Doriani yifan/Arnav/eTransmitting on:?06/23/2024 08:43 AM EDT
--- OUTSIDE RECORDS SUMMARY | 2024-06-23 08:43 | XMS_ITS | Patient Health Record ---
Author Organization [facility] Address [address] [place] [address] Care Team Providers Care Wet Process Head Miller Name Role Phone Meño BECK, Eduardo Primary Care Provider Unavailabl e Sera Saez Unavailable [phone] Cinthia BECK, Rosy Snell Unavailable Unavaila ble [...] Active Immunizations Vaccine Route Administration Date Status Rubén nts COVID-19 Pfizer BioNTech Vaccine Unknown 06/05/2020 [...] Problem Acquired hammer toe of right foot (0098551453746656 ) Other hammer toe(s) (acquired), right foot (M20.41) Active confirmed Problem Acquired hammer toe of left foot (4961475027311836 ) Other hammer toe(s) (acquired), left foot (M20.42) Active confirmed Problem Ulcer of toe (398102347) Non-pressure chronic ulcer of other part of right foot limited to breakdown of skin (L97.511) Active confirmed Problem Polyneuropathy due to type 2 diabetes mellitus (330651708) Type 2 diabetes mellitus with diabetic polyneuropathy (E11.42) Active confirmed Problem Ulcer of toe of right foot (disorder) (3512165202346280 1) Skin ulcer of toe of right foot, limited to breakdown of skin (L97.511) Active confirmed Problem Ulcer of toe of left foot (disorder) (6815563700477615 2) Skin ulcer of toe of left foot, limited to breakdown of skin (L97.521) Active confirmed Encounters Encounter Location Date Provider Diagnosis [facility] [address] [place] [address] 09/24/2023 Sera Saez Plan Of Treatment Pending Test Test Name Order Date *Liver Function Test (LFT) 09/27/2020 91287-UDOIACZ NAIL, 6 OR MORE 09/27/2020 23129-VFJEDZI NAIL, 6 OR MORE 01/07/2021 79343-MLNLJUO NAIL, 6 OR MORE 04/29/2021 57998-TIANYCT NAIL, 6 OR MORE 08/12/2021 12120-AWMKDEW NAIL, 6 OR MORE 11/11/2021 15809-MPDMDWL NAIL, 6 OR MORE 03/03/2022 19242-OMGAZSB NAIL, 6 OR MORE 12/15/2022 23584-RGBRPXL NAIL, 6 OR MORE 03/23/2023 90159-JHPWNFZ NAIL, 6 OR MORE 06/22/2023 24282-CMBRTOG NAIL, 1-5 08/04/2022 52505-Pmotlauq Plate 06/22/2023 67795-Eddgtosj Plate 08/12/2021 55033-Xizforir Plate 08/04/2022 74711-Zvpaatbv Plate 04/29/2021 57462-Fagjpwhu Plate 01/07/2021 81351-Ajizvqai Plate 09/27/2020 64003-Qfjgdokj Plate Each Additional 19536-Xbagerqe Plate Each Additional 01/2023 41477- Debride <25 sq cm 05/16/2021 99659 I&D ABSCESS- SIMPLE,SINGLE 022 58167 I&D ABSCESS- SIMPLE,SINGLE 022 87910 I&D ABSCESS- SIMPLE,SINGLE 021 36253 I&D ABSCESS- SIMPLE,SINGLE 023 40278 I&D ABSCESS- SIMPLE,SINGLE 024 74592-SABG SKIN LESIONS, 2 TO 4 03/23/19 24 88817-UQFF SKIN LESIONS, 2 TO 4 06/22/19 24 Insurance Providers Payer Name Payer Address Payer Phone Subscriber Number Group Number Insured Name Patient Relationship to Insured Coverage Start Date Coverage End Date [facility]ly [facility] [address] [place] [address] [id number] Olive Henry Self - patient is the [...]
--- OUTSIDE RECORDS SUMMARY | 2024-06-23 08:43 | XMS_ITS ---
Author Organization [facility] Address [address] [place] [address] Care Team Providers Care Outsewer Name Role Phone Meño BECK, Eduardo Primary Care Provider UnavailSera Moody Unavailable [phone] Cinthia BECK, Rosy Snell Unavailable Unavaila ble [...] Ordered Date Performed Result Body Sit e 05014-IWANJSP NAIL, 6 OR MORE 06/22/2023 N/A 03562-Rvmbepsi Plate 06/22/2023 N/A 33254 I&D ABSCESS- SIMPLE,SINGLE 06/22/2023 N/A 59583-LEYS SKIN LESIONS, 2 TO 4 06/22/2023 N/A Encounters Encounter Location Date Provider Diagnosis [facility] [address] [address] 06/22/2023 Sera Black Type 2 diabetes mellitus [...] toe Pending Test Test Name Order Date 60427-TXLUWXM NAIL, 6 OR MORE 06/22/2023 18071-Dcbzfvjz Plate 06/22/2023 70680 I&D ABSCESS- SIMPLE,SINGLE 024 55952-ZCMT SKIN LESIONS, 2 TO 4 06/22/19 24 [...] Motrin was recommended for pain or discomfort (89457) Anesthesia was accomplished TOP ICALLY with Lidocaine [...] as necessary. Patient chooses, no pharmaceutical tx (60790) I&D nail abscess Location Lateral nail rhoda [...] dispensed. Recommended Tylenol or Motrin for pain/discomfort (17588) Type Single, Abscess Anesthesia 3cc of 1 percent Lid ocaine Plain local anesthesic utilizing aseptic technique Keratoma Treatment Parring or Cutting o f Benign Hyperkeratotic Lesion(s) 09243 ( 2-4 Lesions ) - The Benign hyperkeratotic lesions, as described above were pared, and/or cut utilizing a sterile 15 blade, tissue nippers, and/or dremel Progress Notes * TAMIR DianababatundeDOB:1960 (64 yo F)Acc No.[id number]:06/22/2023 Progress Note Patient:?TAMIR Olive Provider:?Sera Saez DPM :1960???Age:63 Y???Sex:Female D ate:06/22/2023 Address:[address] [place] [address] Pcp:Eduardo Wilder MD Subjective: * Chief Complaints: [...] a day , Notes to Pharmacist: vitamin W6azcJCALSZ HCl 500 MG Tablet 1 tablet with [...] a day , Notes to Pharmacist: vitamin U8Kbspls metFORMIN HCl 500 MG Tablet 1 tablet [...] taken. * Examination: ???Ophthalmology Referral: ?DIABETES EYE EXAM?Diabetic Retinopathy Screening:?No ?Findings of Diabetic Eye Exam:?no retinopathy?Neurological: ?SENSORY:?Neurological exam demonstrates, reduced vibration sensation, 5.07 [...] ?GENERAL APPEARANCE:? Denies fever, chills, malaise, lymphadenopathy.?FOOT EXAM:?Lower Extremity Neurological Exam performed:?Yes ?Visual exam of foot performed:?Yes ?Date?06/22/2023 ?Sensory testing performed:?sensations diminished ?Sensory and motor testing performed:?sensations diminished ?Pedal pulse taking performed:?2+?Ingrown Nail: ?INSPECTION:?Reveals nail incurvation, pain on palpation, [...] 2.?Type 2 diabetes mellitus with diabetic polyneuropathy?Procedure: 38466-FPPR SKIN LESIONS, 2 TO 4 3.?Tinea unguium?Procedure: 42221-ZJEBUFR NAIL, 6 OR MORE 4.?Ingrown nail?Procedure: 36182-Khotydyd Plate 5.?Edema, lower extremity? Start Compression Stockings [...] as necessary. Patient chooses, no pharmaceutical tx (38590).?I&D nail abscess:?Type?Single, Abscess.?Anesthesia?3cc of 1 percent Lidocaine [...] dispensed. Recommended Tylenol or Motrin for pain/discomfort (63938).?Keratoma Treatment:?Parring or Cutting of Benign Hyperkeratotic Lesion(s)?27365 ( 2-4 Lesions ) - The Benign [...] Motrin was recommended for pain or discomfort (67354).? * Procedure Codes:?96735 DRAIN AGE OF SKIN ABSCESS, Modifiers: T6 52013 DEBRIDE NAIL, 6 OR MORE, Modifiers: XS 66979 Avulsion Plate, Modifiers: T5 80412 TRIM SKIN LESIONS, 2 TO 4, Modifiers: [...] Provider:?Sera Saez DPM Date:?2023 Generated for Martha saha/Arnav/Silviaitting on:?06/23/2024 08:43 AM EDT History and Physical Notes * HPI (History [...]
--- OUTSIDE RECORDS SUMMARY | 2024-06-23 08:43 | XMS_ITS ---
Author Organization [facility] Address [address] [place] [address] Care Team Providers Care Reimbursement Auditor Name Role Phone Meño BECK, Eduardo Primary Care Provider UnavailSera Moody Unavailable [phone] Cinthia BECK, Rosy Snell Unavailable Unavaila ble Encounters Encounter Location Date Provider Diagnosis [address] [address] 10/05/2023 Sera Saez Plan Of Treatment No Information Progress Notes * Olive GARNETTDOB:1960 (64 yo F)Acc No.[id number]:10/05/2023 Progress Note Patient:Olive CRUZ Provider:Shante Saez DPM :1960???Age:63 Y???Sex:Female D ate:10/05/2023 Address:[address] [place], [place] [id number] Pcp:Eduardo Wilder MD Subjective: * Chief Complaints: * ??? * Medical History:? Objective: * Vitals:? Assessment: Plan: * Treatment: * Images: * The named appointment provid er may or may not be the originator of this progress note, and it is not deemed complete until electronically signed by the appointment provider. Sign off status: Pending * Provider:Shante Saez DPM Date:?2023 Generated for Doriani ng/Fasheilag/eTransmitting on:?06/23/2024 08:43 AM EDT
== END 2024-06-23 08:28 | disposition home or self-care (01) ==
LOC: HO.HOSX 08:27
PROVIDERS: Visit Provider Orthopaedic Surgery
DX: M25.552 Pain in left hip (principal); M51.16 Intervertebral disc disorders with radiculopathy, lumbar region; Z96.642 Presence of left artificial hip joint
CPT/HCPCS: 72170; 73501; 99212

== ENCOUNTER 2024-06-23 08:47 | Outpatient (AMB) | payer OTHER, SELFPAY ==
--- NOTE | 2024-06-23 08:51 | A.OFFVIS_ITS ---
Intake Visit Reasons: OV-LT TESSA 05/12/23 NE-Three month follow up Intake Note: Olive is a 64 year old female who presents today for a follow up of her left hip about one year s/p Left TESSA 05/12/23. She was instructed to continue working with Physical Therapy. Patient reports that she is having lower back pain. The hip is doing well, but the back pain is making the hip difficult to manage. She is working with physical therapy who has given her note for the provider to review. She has weakness and tingling down both of her legs - this has been progressively worse over the last few days. Allergies Iodinated Contrast Media [IV Contrast Dye] Allergy (Mild, Verified 01/29/24 09:24) Itching HPI HPI OV-LT TESSA 05/12/23 NE-Three month follow up: Details: Olive is 1 year status post left hip replacement. A call plate was applied intraoperatively for a nondisplaced fracture of the greater trochanter. She did well postoperatively with expected Trendelenburg gait the was improving. Over the last several months however she describes numbness tingling and burning in both legs. She describes lumbosacral back pain when sitting and standing and walking. She uses a cane to ambulate. She has been seeing a physical therapist and was diagnosed with footdrop on the left. She does not actually describes not being able to dorsiflex her ankles. She actually describes some weakness in dorsiflexion that is worse on the right than the left. She does, however, have a new AFO applied to her left shoe. She does not state this has been particularly helpful. [facility] Medical History (Updated 06/23/24 @ 09:14 by Gal Lund MD) EVER (obstructive sleep apnea) Cubital tunnel syndrome, bilateral EVER (obstructive sleep apnea) Degenerative joint disease of left hip Bilateral carpal tunnel syndrome Witnessed apneic spells Excessive daytime sleepiness Osteopenia of multiple sites Numbness and tingling in both hands Paresthesia of both feet Numbness of fingers of both hands Lesion of skin of nose Hammertoes of both feet Tinea unguium Degenerative joint disease of both hips Hip pain Diabetes mellitus, without long-term current use of insulin Acquired deformity of toenail Diabetic neuropathy Supraventricular tachycardia Tubular adenoma of colon Hyperlipidemia Basal cell carcinoma Rosacea Surgical History (Updated 12/03/24 @ 11:33 by Jana Chang [facility]) Status post total replacement of left hip (05/12/23) H/O basal cell carcinoma excision (~01/2023) History of carpal tunnel release (12/08/22) History of colonoscopy History of excision of lesion History of basal cell carcinoma excision Family History Father Diabetes mellitus HTN (hypertension) CVD (cardiovascular disease) Myocardial infarction Mother Throat cancer Cancer Maternal Grandfather No problems noted. Maternal Grandmother No problems noted. Paternal Grandfather No problems noted. Paternal Grandmother No problems noted. 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 There is no groin pain with hip range of motion. She has mild tenderness to firm palpation over the greater trochanter of the left hip. She has 5/5 lower extremity muscle strength except in dorsiflexion where she is 4/5 bilaterally. She has a few beats of clonus on the left. No hyperreflexia with patellar tendon reflexes. Results Reviewed Results Reviewed: I personally reviewed relevant radiographs. Healed greater trochanter nondisplaced fracture with no hardware complications. Assessment & Plan Assessment & Plan (1) Lumbar disc disease with radiculopathy: Code(s): M51.16 - Intervertebral disc disorders with radiculopathy, lumbar region Category: Medical Plan: Most of her complaints appear related to her spine and some mild weakness in dorsiflexion bilaterally and numbness and tingling and burning in the legs. I do think it is reasonable to order an MRI for lumbar spine. (2) Status post total replacement of left hip: Onset Date: 05/12/23 Code(s): Z96.642 - Presence of left artificial hip joint Category: Surgical Plan: Specifically relating to her left hip she is stable. I think her abductor function would be improved if we were to remove the claw plate but the fracture is healed and she is walking pretty well. Her leg lengths are normal and even on both sides. She feels her right leg is a little longer which is not borne out in the imaging and likely a function of her poor gait. I think it is reasonable to continue physical therapy for gait training while we await the results of the lumbar spine MRI. Orders: Orders XR hip LT 1V Today M25.552 - Pain in left hip PT Evaluation and Treatment Today M51.16 - Intervertebral disc disorders with radiculopathy, lumbar region, Z96.642 - Presence of left artificial hip joint XR pelvis 1-2V Today M25.559 - Pain in unspecified hip MR lumbar spine wo con Today M51.16 - Intervertebral disc disorders with radiculopathy, lumbar region Coding Level of Care Code Est Pt Level 3 (12417) Complex EM visit Add On G2211 Diagnoses Lumbar disc disease with radiculopathy M51.16 Status post total replacement of left hip Z96.642
== END 2024-06-23 09:51 | disposition home or self-care (01) ==
LOC: HO.HOS 08:47
PROVIDERS: PCP Nurse Practitioner Family; Visit Provider Orthopaedic Surgery
DX: M51.16 Intervertebral disc disorders with radiculopathy, lumbar region (principal); Z96.642 Presence of left artificial hip joint
CPT/HCPCS: 99213

== ENCOUNTER → 2024-06-23 08:49 | Outpatient (BNV) | payer OTHER, SELFPAY | PROVIDERS: Visit Provider Radiology Diagnostic Radiology | DX: Z96.642 Presence of left artificial hip joint (principal) | CPT/HCPCS: 72170; 73501 ==

== ENCOUNTER → 2024-06-30 17:25 | Outpatient (BNV) | payer OTHER, SELFPAY | PROVIDERS: Visit Provider Radiology Diagnostic Radiology | DX: M47.816 Spondylosis without myelopathy or radiculopathy, lumbar region (principal); M99.63 Osseous and subluxation stenosis of intervertebral foramina of lumbar region | CPT/HCPCS: 72148 ==

== ENCOUNTER 2024-06-30 17:29 | Outpatient (REF) | payer OTHER, SELFPAY ==
--- NOTE | ~2024-06-30 | MR_ITS ---
EXAMINATION: MR LUMBAR SPINE WITHOUT CONTRAST CLINICAL INFORMATION: Intervertebral discs disorders with radiculopathy, lumbar region. COMPARISON: None available. TECHNIQUE: MRI of the lumbar spine was obtained using routine sequences without contrast. FINDINGS: Last rib-bearing vertebra labeled T12. Bone marrow inhomogeneity throughout the axial skeleton. Bone marrow STIR signal within the endplates of L2 and L3 and the right transverse processes of L1, T11. There is bone marrow STIR signal within the right hemisacrum no fully included in the evgxc-wv-uaqn. Multilevel syndesmophyte formation and marginal osteophyte formation from the Z35-02-5 L3-4, the largest on the right side of L1-2 extending into the right psoas muscle resulting in fatty atrophy. There is a grade 1 anterolisthesis L5-S1 on a degenerative basis. There is a grade 1 retrolisthesis at L2-3 and L3-4 on a degenerative basis. The conus medullaris ends at superior endplate of L2 with normal signal. T11-12: No disc herniation. No neuroforamina stenosis. T12-L1: Broad-based disc bulging. Facet joint and ligamentum flavum hypertrophy. No compression upon neural elements. L1-2: Broad-based disc bulging. Facet joint and ligamentum flavum hypertrophy. No compression upon neural elements. L2-3: Right subarticular and foraminal herniated disc with cephalad migration compressing the right L3 and L2 exiting nerve roots and deformity in the right ventral aspect of the thecal sac. There is facet joint and ligamentum flavum hypertrophy resulting in CSF effacement of the thecal sac and compression upon neural elements. There is grouping position of the neural elements within the thecal sac at L3 level. L3-4: Broad-based disc bulging, facet Ligamentum flavum hypertrophy resulting in CSF effacement of the thecal sac and compression upon the neural elements both thecal sac and the neural foramina. L4-5: Broad-based disc bulging, facet and ligamentum flavum hypertrophy resulting in CSF effacement of the thecal sac central spinal canal and bilateral neuroforamina stenosis compressing the neural elements. L5-S1: Broad-based disc bulging and facet joint hypertrophy. No central spinal canal stenosis. Bilateral neuroforamina narrowing encroaching the exiting nerve roots. MR/MR lumbar spine wo con IMPRESSION: Multilevel spondylosis resulting in central spinal canal stenosis at L2-3, L3-4 and L4-5 and bilateral neuroforamina stenosis at L2-3, L3-4 and L4-5 levels and worsening at L2-3 secondary to a right subarticular and foraminal herniated disc. Electronically signed by: Parker Booker MD 07/01/2024 07:20 AM EDT
--- OUTSIDE RECORDS SUMMARY | 2024-06-30 17:32 | XMS_ITS ---
Author Organization [facility] Address [address] [place] [address] Care Team Providers Care Mobile Lounge Driver Name Role Phone Meño BECK, Eduardo Primary Care Provider UnavailSera Moody Unavailable [phone] Cinthia BECK, Rosy Snell Unavailable Unavaila ble REASON FOR VISIT cx 10/04 Encounters Encounter Location Date Provider Diagnosis [facility] [address] [place] [address] 09/24/2023 Sera Saez Plan Of Treatment No Information Progress Notes * TAMIROlive CHAMBERLAINDOB:1960 (63 yo F)Acc No.[id number]:09/24/2023 Patient:?Olive Henry :1960???Age:63 Y???Sex:Female Address:[address] [place] [address], [address] * true * Date:? Generated for Doriani yifan/Arnav/eTransmitting on:?06/30/2024 05:32 PM EDT
--- OUTSIDE RECORDS SUMMARY | 2024-06-30 17:32 | XMS_ITS ---
Author Organization [facility] Address [address] [place] [address] Care Team Providers Care Handbag Finisher Name Role Phone Meño BECK, Eduardo Primary Care Provider UnavailSera Moody Unavailable [phone] Cinthia BECK, Rosy Snell Unavailable Unavaila ble Encounters Encounter Location Date Provider Diagnosis [address] [address] 10/05/2023 Sera Saez Plan Of Treatment No Information Progress Notes * Olive GARNETTDOB:1960 (64 yo F)Acc No.[id number]:10/05/2023 Progress Note Patient:Olive CRUZ Provider:Shante Saez DPM :1960???Age:63 Y???Sex:Female D ate:10/05/2023 Address:[address] [place], [place] [id number] Pcp:Eduardo Wilder MD Subjective: * Chief Complaints: * ??? * Medical History:? Objective: * Vitals:? Assessment: Plan: * Treatment: * Images: * The named appointment provid er may or may not be the originator of this progress note, and it is not deemed complete until electronically signed by the appointment provider. Sign off status: Pending * Provider:Shante Saez DPM Date:?2023 Generated for Printi ng/Fasheilag/eTransmitting on:?06/30/2024 05:32 PM EDT
--- OUTSIDE RECORDS SUMMARY | 2024-06-30 17:32 | XMS_ITS ---
Author Organization [facility] Address [address] [place] [address] Care Team Providers Care Measurement Advisor Name Role Phone Meño BECK, Eduardo Primary Care Provider UnavailSera Moody Unavailable [phone] Cinthia BECK, Rosy Snell Unavailable Unavaila ble [...] Ordered Date Performed Result Body Sit e 65997-LDNRLTZ NAIL, 6 OR MORE 06/22/2023 N/A 12080-Dqojuvxe Plate 06/22/2023 N/A 33393 I&D ABSCESS- SIMPLE,SINGLE 06/22/2023 N/A 88762-QVUN SKIN LESIONS, 2 TO 4 06/22/2023 N/A Encounters Encounter Location Date Provider Diagnosis [facility] [address] [address] 06/22/2023 Sera Black Type 2 diabetes mellitus [...] toe Pending Test Test Name Order Date 94399-CRLYETL NAIL, 6 OR MORE 06/22/2023 31890-Naactpde Plate 06/22/2023 12612 I&D ABSCESS- SIMPLE,SINGLE 024 74786-HWNQ SKIN LESIONS, 2 TO 4 06/22/19 24 [...] Motrin was recommended for pain or discomfort (57087) Anesthesia was accomplished TOP ICALLY with Lidocaine [...] as necessary. Patient chooses, no pharmaceutical tx (28741) I&D nail abscess Location Lateral nail rhoda [...] dispensed. Recommended Tylenol or Motrin for pain/discomfort (48277) Type Single, Abscess Anesthesia 3cc of 1 percent Lid ocaine Plain local anesthesic utilizing aseptic technique Keratoma Treatment Parring or Cutting o f Benign Hyperkeratotic Lesion(s) 15263 ( 2-4 Lesions ) - The Benign hyperkeratotic lesions, as described above were pared, and/or cut utilizing a sterile 15 blade, tissue nippers, and/or dremel Progress Notes * TAMIR DianababatundeDOB:1960 (64 yo F)Acc No.[id number]:06/22/2023 Progress Note Patient:?TAMIR Olive Provider:?Sera Saez DPM :1960???Age:63 Y???Sex:Female D ate:06/22/2023 Address:[address] [place] [address] Pcp:Eduardo Wilder MD Subjective: * Chief Complaints: [...] a day , Notes to Pharmacist: vitamin L5hsgUUNAEJ HCl 500 MG Tablet 1 tablet with [...] a day , Notes to Pharmacist: vitamin O6Qmtsju metFORMIN HCl 500 MG Tablet 1 tablet [...] 2.?Type 2 diabetes mellitus with diabetic polyneuropathy?Procedure: 14060-WLFH SKIN LESIONS, 2 TO 4 3.?Tinea unguium?Procedure: 28336-SCQIDMP NAIL, 6 OR MORE 4.?Ingrown nail?Procedure: 40404-Jegdwxel Plate 5.?Edema, lower extremity? Start Compression Stockings [...] as necessary. Patient chooses, no pharmaceutical tx (39993).?I&D nail abscess:?Type?Single, Abscess.?Anesthesia?3cc of 1 percent Lidocaine [...] dispensed. Recommended Tylenol or Motrin for pain/discomfort (72881).?Keratoma Treatment:?Parring or Cutting of Benign Hyperkeratotic Lesion(s)?56873 ( 2-4 Lesions ) - The Benign [...] Motrin was recommended for pain or discomfort (96141).? * Procedure Codes:?25138 DRAIN AGE OF SKIN ABSCESS, Modifiers: T6 68605 DEBRIDE NAIL, 6 OR MORE, Modifiers: XS 28968 Avulsion Plate, Modifiers: T5 94135 TRIM SKIN LESIONS, 2 TO 4, Modifiers: [...] Saez DPM Date:?2023 Generated for Martha saha/Arnav/Silviaitting on:?06/30/2024 05:32 PM EDT History and Physical Notes * HPI [...]
== END 2024-06-30 17:30 | disposition home or self-care (01) ==
LOC: HO.MRI 17:29
PROVIDERS: Visit Provider Orthopaedic Surgery
DX: M51.16 Intervertebral disc disorders with radiculopathy, lumbar region (principal)
CPT/HCPCS: 72148